=== PATIENT | female | born 1950 | race Caucasian/White ===

== ENCOUNTER 2017-10-31 05:33 | Day surgery (SDC) | payer MEDICARE, OTHER, SELFPAY ==
--- NOTE | 2017-10-31 06:06 | HP.PCM_ITS ---
Problem List (1) Diverticulitis Status: Acute History of Present Illness Date of Admission: 10/31/17 The patient is a 67 year old F who is being referred for surgical evaluation subsequent to repetitive episode of abdominal pain with suspected diverticulitis. The patient is referred by her primary care physician Dr Franklin for a colonoscopy and a written copy of the procedure will be returned to . Fortunately the patient's pain has improved. She denies bright red blood per rectum or melena. Previous colonoscopy 2013. She does not recall previous history of colon polyps. There is no apparent family history of colon cancer. She is presenting via our open access program. Currently she feels that her health is stable. Past Medical History Past Medical History (Chronic Problems): Chronic Problems (Last Updated 10/23/17 @ 10:08 by Jessica Dale MD) Lichen sclerosus et atrophicus (Chronic) try liquid clobetasol, if doesn't work recommend mometasone due to cost Rectocele (Chronic) discussed pessary- will see if it is covered History of psoriasis (Chronic) Obesity (Chronic) History of hyperlipidemia (Chronic) Medical History: Medical History (Last Updated 10/23/17 @ 10:08 by Jessica Dale MD) Diverticulitis (Acute) K57.92 History of psoriasis (Chronic) Z87.2 Obesity (Chronic) E66.9 History of hyperlipidemia (Chronic) Z86.39 Abdominal pain R10.9 Diverticulitis K57.[address] franklin manages Allergies ciprofloxacin [From Cipro] Allergy (Verified 10/23/17 09:38) Other ciprofloxacin HCl [From Cipro] Allergy (Verified 10/23/17 09:38) Other lanolin Adverse Reaction (Verified 10/23/17 09:38) Rash morphine Adverse Reaction (Verified 10/23/17 09:38) Vomiting Home Medications: Ambulatory Orders Medication Instructions Recorded Clobetasol Propionate [Temovate 1 applic TOPICAL PRN PRN 02/15/15 Ointment] Doxycycline 20 mg PO BID 02/15/15 Ketoconazole 1 applic TOPICAL PRN PRN 02/15/15 Metronidazole [Metrocream] 45 gm TOPICAL PRN PRN 02/15/15 Multivit-Min/Iron/Folic/Lutein 1 ea PO DAILY 02/15/15 [Centrum Silver Women Tablet] Atorvastatin Calcium [Lipitor] 20 mg PO QHS 01/22/17 Vitamin B Complex 1 ea PO DAILY 01/22/17 triamcinolone acetonide 0.1 % 1 applic TOPICAL QWEEK g 09/12/17 topical cream ixekizumab 80 mg/mL subcutaneous 80 mg SC Q4W 10/23/17 syringe Surgical History: Surgical History (Last Reviewed 10/23/17 @ 09:41 by Sandy Gonzalez) History of bilateral cataract extraction Z98.41, Z98.42 History of tonsillectomy Z90.89 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 Denies: Abdominal Pain Genitourinary: Denies: Dysuria Musculoskeletal: Denies: Leg Pain Skin: Reports: Lesions Neurological: Denies: Balance problems Psychiatric: Denies: Anxiety Endocrine: Denies: Change in Body Habitus Hematologic/ Lymphatic: Denies: Adenopathy VTE Information - Inpt Only VTE Present on Admission: No - Physical Exam General: Alert, Oriented x3, Cooperative, No apparent distress HEENT: Atraumatic Oral: Moist Mucosa Neck: Supple Lungs: Clear to auscultation Cardiovascular: Regular rate, Regular Rhythm Abdomen: Bowel Sounds Present, Soft, Non Tender, Non-Distended Extremities: No clubbing Musculoskeletal: No Tenderness to Palpation of Joints or Extremities Lymphatic: No Cervical, Supraclavicular, or Inguinal Adenopathy Neurological: Cranial nerves II-XII grossly intact Psych/Mental Status: Normal Affect Assessment/Plan All Active Problems (Last Updated 10/23/17 @ 10:08 by Jessica Dale MD) Diverticulitis (Acute) 67-year-old female is being evaluated because of a recent bout of low abdominal pain. She has a past history of diverticulitis. Her symptoms have improved. We will proceed with colonoscopy with possible biopsy or polypectomy is indicated. She is aware of the technique, benefits, risks, alternatives. She elected to proceed as noted. Vinod Whitmore M.D., F.A.C.S.
[2017-10-31 06:09] VITALS: BP 115/63; PULSE 77; RESP 18; TEMP 36.7; O2SAT 98; BMI 33.0
--- NOTE | 2017-10-31 06:48 | PCM.OPRPT ---
Problem List (1) Diverticulitis Status: Acute Report of Operation Date of Procedure: 10/31/17 Pre-Operative Diagnosis: Recurrent bouts of diverticulitis/abdominal pain Post-Operative Diagnosis: Reynoso colonic diverticulosis. grade 2 internal hemorrhoids Surgery/Procedure Performed:: Colonoscopy Description of Surgical Findings:: Timeout and informed consent was obtained. 67-year-old female was taken to the endoscopy suite. She was placed in a left lateral decubitus position. Because of intolerance to morphine Zofran 4 mg given intravenously. Demerol 100 mg and Versed 3.5 mg were given as intravenous sedation. Digital rectal exam performed. Grade 2 to grade 3 internal hemorrhoids noted. No mass lesions. No active bleeding. Flexible colonoscope inserted in the rectum and quite readily advanced through the colon. Transabdominal pressure was required to get the scope to go to the cecum. The cecum ileocecal valve area however was nicely achieved. Bowel prep was good. The scope was carefully withdrawn from the cecum ascending colon transverse colon descending colon and sigmoid colon. Reynoso colonic diverticulosis was identified with extensive diverticular disease of the descending and sigmoid colon. Did not detect any signs of acute inflammation. The scope was retroflexed within the rectum. Anorectal verge inspected and grade 2-3 internal hemorrhoids noted. No active bleeding. Excess fluid and air was aspirated free the procedure was completed with the patient tolerating it well. Impression Pancolonic diverticulosis Grade 2-3 internal hemorrhoids The patient's previous colonoscopy was approximately 2013. Next screening colonoscopy recommended in 10 years. The patient will be offered an office appointment if she has further recurrent bouts of diverticulitis in the future does consider other treatment options. Cc: Dr. Pryor Medications were given at 0634. Scope was inserted 0635. The cecum was reached at 0640.3. The procedure was completed at 0646.58 Vinod Whitmore M.D., F.A.C.S. Type of Anesthesia:: IV Sedation
[2017-10-31 06:51] VITALS: BP 115/63; BP 116/81; PULSE 108; RESP 18; TEMP 36.5; O2SAT 98
[2017-10-31 06:55] VITALS: BP 115/63; BP 127/77; PULSE 102; RESP 18; O2SAT 98
[2017-10-31 07:00] VITALS: BP 115/63; BP 121/72; PULSE 89; RESP 18; O2SAT 98
[2017-10-31 07:05] VITALS: BP 115/63; BP 125/73; PULSE 87; RESP 18; TEMP 36.2; O2SAT 96
[2017-10-31 07:17] VITALS: BP 115/63
== END 2017-10-31 07:40 | disposition home or self-care (01) ==
LOC: EN 05:34 → AC 05:35
PROVIDERS: Family Provider Internal Medicine; PCP Internal Medicine; Visit Provider Surgery
PROC: 0DJD8ZZ Inspection of Lower Intestinal Tract, Via Natural or Artificial Opening Endoscopic (ICD-10-PCS; CPT 45378; principal; 2017-10-31 06:25)
DX: K57.30 Diverticulosis of large intestine without perforation or abscess without bleeding (principal); K64.8 Other hemorrhoids; L90.0 Lichen sclerosus et atrophicus; E78.5 Hyperlipidemia, unspecified; E66.9 Obesity, unspecified; M81.0 Age-related osteoporosis without current pathological fracture; Z79.899 Other long term (current) drug therapy
CPT/HCPCS: G0121; 99152; 99153; J7120; J2405

== ENCOUNTER → 2018-06-08 08:25 | Outpatient (CLI) | payer MEDICARE, OTHER, SELFPAY ==
--- NOTE | 2018-06-08 08:31 | BI_ITS ---
MAMMOGRAPHY - BILATERAL SCREENING REASON FOR EXAM: Female, 68 years old. Routine annual screening examination. PERTINENT HISTORY: Non-contributory. Prior left excisional breast biopsy and right stereotactic breast biopsy. TECHNIQUE: Digital bilateral breast reggie (3D mammographic acquisition) in the CC and MLO projections. 2-D mediolateral oblique (MLO) and craniocaudad (CC) views of both breasts were obtained. CAD: Full Field Digital Mammography with Computer Added Detection was performed. COMPARISON: Comparison is made with prior abdomen examination dated November 17, 2016 and November 11, 2015. FINDINGS: Breast Composition: The breasts are almost entirely fatty. There are no dominant masses or suspicious calcifications. No other significant abnormalities are identified. There has been no significant change since the prior study. BI/SCREENING MAMM (CAD), BILAT IMPRESSION: Stable bilateral screening mammogram. Yearly follow-up mammogram recommended. (A) ASSESSMENT CATEGORY: BIRADS Category 1: Negative. A letter regarding these results will be sent to the patient by the facility within 30 days. Approximately 10% of breast cancers are not detected by mammography. A normal mammogram should not delay biopsy of a clinically suspicious abnormality. [id number] Electronically Signed: True Ribeiro MD at 14:55 EST , Service support ,
== END ==
PROVIDERS: Family Provider Internal Medicine; PCP Internal Medicine; Referring Provider Obstetrics & Gynecology; Visit Provider Obstetrics & Gynecology
DX: Z12.31 Encounter for screening mammogram for malignant neoplasm of breast (principal)
CPT/HCPCS: 77063; 77067

== ENCOUNTER 2019-01-30 14:14 | Emergency (ER) | payer MEDICARE, OTHER, SELFPAY ==
[2018-06-13 09:29] VITALS: BMI 33.5
[2019-01-30 14:15] VITALS: BP 162/70; PULSE 78; RESP 18; TEMP 36.4; O2SAT 99; BMI 34.1
--- NOTE | 2019-01-30 14:35 | CT_ITS ---
STUDY: CT ABDOMEN AND PELVIS WITH CONTRAST REASON FOR EXAM: Female, 68 years old. Left lower quadrant pain for one day. History of diverticulitis. RADIATION DOSAGE (If Supplied By Facility): CTDIvol = ( 15.35 ) mGy, DLP = ( 1343.46 ) mGycm TECHNIQUE: Transaxial images were obtained from the dome of the diaphragm to the symphysis pubis with oral contrast. IV/Oral Isovue 300 100 was administered. Sagittal and coronal images were reconstructed. Individualized dose optimization techniques were used for this CT. COMPARISON: February 05, 2015. FINDINGS: The visualized lung bases are unremarkable. The visualized portions of the heart are within normal limits. Normal liver. Small densities in the gallbladder fundus thought to be small noncalcified stones. There is no wall thickening or inflammatory change. There is no biliary ductal dilatation. Normal spleen. Fatty replacement of the pancreas without mass. Normal bilateral adrenal glands. Normal right kidney. Normal left kidney. Normal visualized ureters. Type I hiatal hernia. The stomach is otherwise unremarkable. Normal small intestine. There is descending and sigmoid diverticulosis. There is a question of mild diverticulitis at the junction of the distal and sigmoid colon without perforation or abscess. The appendix is visualized and appears normal. There is diffuse atherosclerotic calcification of the abdominal aorta, without a demonstrated aneurysm. Normal inferior vena cava. Normal retroperitoneum. Normal urinary bladder. Normal uterus and ovaries. There is no pelvic lymphadenopathy. No free air or free fluid is seen within the peritoneal cavity. Normal abdominal wall. Very mild degenerative changes of the thoracolumbar spine. CT/Abdomen/Pelvis WITH Contrast IMPRESSION: 1. Uncomplicated sigmoid diverticulitis. 2. Resolution of left hydronephrosis and UVJ calculus seen on the prior study. There is no evidence of renal ureteral or urinary bladder abnormality on the current exam. 3. Question small gallstones without acute cholecystitis. Electronically Signed: Kannan Garg DO at 16:38 EDT Tel [phone], Service support ,
--- NOTE | 2019-01-30 14:36 | ED.DCSUM_ITS ---
History of Present Illness Chief Complaint: Abd Pain Informant: Patient Onset: Yesterday Context: Gradual Onset Current Severity: Moderate Maximum Severity: Moderate Narrative: She presents with lower abdominal pain that started last evening. She states she has felt constipated for the past couple of days. She ate a salad last evening and felt very bloated. She had 2 bowel movements this morning he continued to have worsening pain, worse in the left lower quadrant. She is a history of diverticulitis. She has had no fever or chills. Past Medical History - Allergies and Home Meds Allergies/Adverse Reactions: Allergies ciprofloxacin [From Cipro] Allergy (Verified 01/30/19 14:18) Other ciprofloxacin HCl [From Cipro] Allergy (Verified 01/30/19 14:18) Other lanolin Adverse Reaction (Verified 01/30/19 14:18) Rash morphine Adverse Reaction (Verified 01/30/19 14:18) Vomiting Primary Care Physician: Hilary Pryor MD [Primary Care Provider] - Prior records reviewed: Yes Past Medical History: - - Reviewed Surgical History: noncontributory Lives: Spouse/ Significant Other Smoking Status: Never smoker - Family History Maternal Family History: Family History (Last Reviewed 06/13/18 @ 09:38 by Sandy Gonzalez) Brother Kidney disease Mother Thyroid disorder Adult idiopathic generalized osteoporosis Skin cancer Family History: Reports: No pertinent history Review of Systems General: Denies: Chills, Fever Eyes: Denies: Visual changes - bilaterally ENT: Denies: Bilateral ear pain Cardiovascular: Denies: Chest pain Respiratory: Denies: Dyspnea Gastrointestinal: Reports: Abdominal pain, Constipation. Denies: Nausea, Vomiting, Diarrhea Genitourinary: Denies: Dysuria Musculoskeletal: Denies: Extremity Pain Skin: Denies: Rash Neurological: Denies: Headache Hematologic: Denies: Easy bruising, Easy bleeding Allergy: Denies: Uticaria Physical Exam Vital Signs/Narrative: Vital Signs Temp Pulse Resp BP Pulse Ox 01/30/19 14:15 97.6 F L 78 18 162/70 H 99 Inital Vital Signs reviewed: Yes General: Well nourished, Well developed Head: Normocephalic ENT: Moist mucous membranes Cardiovascular: Regular rate, Regular rhythm Respiratory: No distress, CTA bilaterally Abdomen: Soft, Normal bowel sounds, Tender - Left lower quadrant tenderness to palpation.. Negative for: Guarding, Rebound tenderness Back: Nontender Skin: Normal color Neurological: Alert, Oriented x3 Psychological: Normal affect Diagnostic/Tx/Re-eval Impressions Abdomen/Pelvis CT 01/30/19 14:35 IMPRESSION: 1. Uncomplicated sigmoid diverticulitis. 2. Resolution of left hydronephrosis and UVJ calculus seen on the prior study. There is no evidence of renal ureteral or urinary bladder abnormality on the current exam. 3. Question small gallstones without acute cholecystitis. Electronically Signed: Kannan Garg DO at 16:38 EDT Tel [phone], Service support , 01/30/19 14:35 Abdomen/Pelvis WITH Contrast [CT] Stat Laboratory Results 01/30/19 01/30/19 15:00 15:00 WBC 11.4 H RBC 5.47 H Hgb 15.5 H Hct 47.0 MCV 85.9 MCH 28.3 MCHC 33.0 RDW Std Deviation 42.5 RDW Coeff of Alex 13.3 Plt Count 229 MPV 9.2 Immature Gran % (Auto) 0.400 Neut % (Auto) 71.9 H Lymph % (Auto) 19.3 [place] % (Auto) 6.6 Eos % (Auto) 1.4 Baso % (Auto) 0.4 Absolute Neuts (auto) 8.2 H Absolute Lymphs (auto) 2.19 Nucleated RBC % 0 Sodium 140 Potassium 4.3 Chloride 108 H Carbon Dioxide 27.0 Anion Gap 5 BUN 15 Creatinine 0.76 Estim Creat Clear Calc 48.45 Est GFR (MDRD) Af Amer 96 Est GFR (MDRD) Non-Af 80 BUN/Creatinine Ratio 19.6 Glucose 94 Calcium 8.9 - Medical Decision Making Patient declined anything for pain while in the emergency room. On repeat evaluation she is resting comfortably. She gets spikes of more severe pain in the left lower quadrant. She requested only ibuprofen. She will also be given first dose of Augmentin here. ED Disposition - Plan for ED Patient: Disposition: Home or Assisted Living Diagnosis: Diverticulitis Instructions: Diverticulitis Prescriptions: Amox/Clavulanate Tablet [Augmentin Tablet] 875 mg PO Q12H #20 tablet Referrals: Hilary Pryor MD [Primary Care Provider] - 1 Week
[2019-01-30] MEDS: 0.9% Normal Saline 1,000 ML 150 ML IV (14:55)
[2019-01-30 15:10] LABS: Absolute Lymphocyte Count 2.19 X10^3/uL (0.83-4.51); Absolute Neutrophil Count 8.2 X10^3/uL (2.0-7.7); Basophil# 0.04 X10^3/uL; Basophil% 0.4 % (0-1); Eosinophil# 0.16 X10^3/uL; Eosinophils% 1.4 % (0-5); Hemoglobin 15.5 g/dL (12.0-15.0); Lymphocyte # 2.19 X10^3/ul (4.0); Lymphocyte % 19.3 % (19-41); Mean Corpuscular Hgb 28.3 pg (27.0-32.0); Mean Corpuscular Volume 85.9 fL (81-99); Mean Platelet Vol. 9.2 fl (6.2-12.0); Monocyte# 0.75 X10^3/uL; Monocyte% 6.6 % (0-10); NRBC Flagged by Analyzer 0 % (0-5); Neutrophil # 8.16 X10^3/uL (2.7-7.7); Neutrophil % 71.9 % (47-70); Platelet Count 229 K/mm3 (150-450); RBC Distribution Width CV 13.3 % (11.6-14.6); RBC Distribution Width SD 42.5 fl (35.1-43.9); Red Blood Count 5.47 M/mm3 (4.2-5.4); White Blood Count 11.4 K/mm3 (4.4-11.0)
[2019-01-30 15:19] LABS: Anion Gap 5 (5-15); BUN 15 mg/dL (7-18); BUN/Creat Ratio 19.6 RATIO (10-20); Calcium,Total 8.9 mg/dL (8.5-10.1); Chloride 108 mmol/L (98-107); Creatinine, Serum 0.76 mg/dL (0.55-1.02); EST Glomerular Filtration Rate 80 mL/min (>60); Est Glom Filt Rate - Afr Amer 96 mL/min (>60); Estimated Creatinine Clearance 48.45 ml/min; Glucose 94 mg/dL (74-106); Potassium 4.3 mmol/L (3.5-5.1); Sodium Level 140 mmol/L (136-145)
[2019-01-30 16:14] VITALS: RESP 16
[2019-01-30] MEDS: Amox/Clavulanate 875 MG Tablet PO (17:00)
[2019-01-30] MEDS: Ibuprofen 600 MG Tablet PO (17:00)
[2019-01-30 17:07] VITALS: BP 134/60; PULSE 75; RESP 16; O2SAT 97
--- NOTE | 2019-01-30 17:07 | ED.RN ---
REVIEWED D/C INSTRUCTIONS, FOLLOW UP CARE, PRESCRIPTION, AND S/S THAT WOULD WARRANT A RETURN TO THE ED WITH PT. PT VERBALIZED AN UNDERSTANDING AND DENIES FURTHER QUESTIONS FOR THIS RN. PT SKIN P/W/D, RESP EVEN AND UNLABORED, PT A&O X 3, NO DISTRESS NOTED. PT AMBULATED OUT OF ED, GAIT STEADY.
== END 2019-01-30 17:10 | disposition home or self-care (01) ==
PROVIDERS: Emergency Provider Emergency Medicine; Family Provider Internal Medicine; PCP Internal Medicine
DX: K57.32 Diverticulitis of large intestine without perforation or abscess without bleeding (principal)
CPT/HCPCS: 74177; 80048; 85025; 96360; 96361; 99284; J7030; Q9967; A4216

== ENCOUNTER → 2019-06-25 | Outpatient (CLI) | payer MEDICARE, OTHER, SELFPAY ==
--- NOTE | 2019-06-25 09:40 | BI_ITS ---
MAMMOGRAPHY - BILATERAL SCREENING REASON FOR EXAM: Female, 69 years old. Routine annual screening examination. PERTINENT HISTORY: Non-contributory. Remote right stereotactic breast biopsy. TECHNIQUE: Digital bilateral breast evan (3D mammographic acquisition) in the CC and MLO projections. 2-D mediolateral oblique (MLO) and craniocaudad (CC) views of both breasts were obtained. CAD: Full Field Digital Mammography with Computer Added Detection was performed. COMPARISON: Comparison is made with prior examination dated June 08, 2018 and November 11, 2015. FINDINGS: Breast Composition: The breasts are almost entirely fatty. There are no dominant masses or suspicious calcifications. A tissue clip marker is seen in the upper outer aspect of the right breast. No other significant abnormalities are identified. There has been no significant change since the prior study. BI/SCREEN MAMM (CAD) W/EVAN BILAT IMPRESSION: Stable bilateral screening mammogram. Yearly follow-up mammogram recommended. (A) ASSESSMENT CATEGORY: BIRADS Category 2: Benign. A letter regarding these results will be sent to the patient by the facility within 30 days. Approximately 10% of breast cancers are not detected by mammography. A normal mammogram should not delay biopsy of a clinically suspicious abnormality. [id number] Electronically Signed: True Ribeiro, at 10:41 EST , Service support ,
== END | disposition home or self-care (01) ==
LOC: OPBI 09:40
PROVIDERS: Family Provider Internal Medicine; PCP Internal Medicine; Referring Provider Obstetrics & Gynecology; Visit Provider Obstetrics & Gynecology
DX: Z12.31 Encounter for screening mammogram for malignant neoplasm of breast (principal)
CPT/HCPCS: 77063; 77067

== ENCOUNTER 2019-11-30 21:55 | Emergency (ER) | payer MEDICARE, OTHER, SELFPAY ==
[2019-07-04 08:43] VITALS: BMI 34.1
[2019-11-30 21:56] VITALS: BP 161/84; PULSE 77; RESP 20; TEMP 36.8; O2SAT 98; BMI 34.2
--- NOTE | 2019-11-30 22:14 | EKG12_ITS ---
Test Reason : PALPATATIONS Blood Pressure : / mmHG Vent. Rate : 069 BPM Atrial Rate : 069 BPM P-R Int : 148 ms QRS Dur : 080 ms QT Int : 390 ms P-R-T Axes : 048 045 033 degrees QTc Int : 417 ms Normal sinus rhythm Low voltage QRS Borderline ECG Confirmed by BENIGNO GABRIEL, MARI ([id number]), associate entertainment editor JESSIE RILEY ([id number]) on 12/02/2019 1:15:27 PM Referred By: NGUYEN Confirmed By:MARI PELAEZ MD
--- NOTE | 2019-11-30 22:14 | RAD_ITS ---
STUDY: X-RAY CHEST REASON FOR EXAM: Female, 69 years old. INTERMITTENT PALPITATIONS X2 WEEKS, WORSENING FOR 2 DAYS TECHNIQUE: Single frontal view of the chest. COMPARISON: None. FINDINGS: The lungs are clear and expanded. There is no demonstrated pleural abnormality. Normal size heart. Normal mediastinum and mika. Normal visualized pulmonary arteries. Normal visualized aortic arch and descending thoracic aorta. Normal visualized thoracic spine. Normal visualized ribs, clavicles, and shoulders. There is no demonstrated abnormality of the visualized soft tissue structures of the upper abdomen. RAD/Chest 1 View (Portable) IMPRESSION: Normal x-ray examination of the chest. Electronically Signed: Nolan Oconnor MD at 22:59 EDT Tel , Service support ,
[2019-11-30] MEDS: Aspirin 81 MG TAB.CHEW 324 MG PO (22:23)
[2019-11-30] MEDS: 0.9% Normal Saline 1,000 ML 150 ML IV (22:24)
[2019-11-30 22:41] LABS: Absolute Lymphocyte Count 3.53 X10^3/uL (0.83-4.51); Absolute Neutrophil Count 5.1 X10^3/uL (2.0-7.7); Basophil# 0.04 X10^3/uL; Basophil% 0.4 % (0-1); Eosinophil# 0.25 X10^3/uL; Eosinophils% 2.6 % (0-5); Hematocrit 43.6 % (37-47); Hemoglobin 14.3 g/dL (12.0-15.0); Lymphocyte # 3.53 X10^3/ul (4.0); Lymphocyte % 36.8 % (19-41); Mean Corp Hgb Conc 32.8 g/dL (32-36); Mean Corpuscular Hgb 28.4 pg (27.0-32.0); Mean Corpuscular Volume 86.7 fL (81-99); Mean Platelet Vol. 9.6 fl (6.2-12.0); Monocyte% 6.3 % (0-10); NRBC Flagged by Analyzer 0 % (0-5); Neutrophil # 5.13 X10^3/uL (2.7-7.7); Neutrophil % 53.5 % (47-70); Platelet Count 245 K/mm3 (150-450); RBC Distribution Width CV 13.6 % (11.6-14.6); RBC Distribution Width SD 42.9 fl (35.1-43.9); Red Blood Count 5.03 M/mm3 (4.2-5.4); White Blood Count 9.6 K/mm3 (4.4-11.0)
--- NOTE | 2019-11-30 23:01 | ED.VISSUMM ---
- ER Visit Summary Date of Service: 11/30/19 Chief Complaint: Palpitations History of Present Illness: The patient is a [address] benson to. She reports that she has palpitations that began 2 days ago. States that it feels as though her heart misses a beat. States that this is worse when she rests. It resolves with doing things. Patient reports that she has a chest tightness that began tonight at approximately 6:30 PM after eating dinner. It was 6 out of 10 at worst. She is pain-free currently. She states it is worsened by eating. She reports it is not worsened by exertion. She took Tums and is not sure if this helped or if it just resolved on its own. She does report she was mildly short of breath during this. Physical Examination: Vitals: Stable. Afebrile. General: Well-nourished and well-developed. Head: Normocephalic atraumatic. Neck: Supple, no lymphadenopathy. No JVD. Nontender. Cardiovascular: Regular rate and rhythm. No murmurs. Respiratory: No respiratory distress. Clear to auscultation bilaterally. Abdominal: Soft, nontender, nondistended, normal bowel sounds. No guarding, rebound, or peritoneal signs. Back: Nontender. Extremities: Nontender, no edema. Skin: Normal color, no rash. Neurologic: Alert and oriented ?3. Cranial nerves II through XII are intact. Normal strength and sensation. Psych: Normal affect. Test Results: EKG is sinus at [address] changes. Is unchanged from September 2009. Repeat EKG is unchanged. Troponin is negative. Repeat troponin is negative. Chem-7 shows a chloride of 114 and glucose 138. CBC is normal. TSH is 3.18. Chest x-ray is normal. Emergency Department Course and Treatment: Patient is having PVCs. These are when she senses the palpitations and she states that this is the discomfort she is having as well. Treatment Plan: Had a prolonged discussion the patient that at this time there are no medications that are indicated for the PVCs. Her heart rate is in the 60s to 70s. I do not think that putting her on a beta-beau at this point is in her best interest. She will be discharged instructions to follow-up with her doctor in 2 days for another exam. Return to the emergency department for any worsening symptoms. Disposition: To home in improved and stable condition. Impression: 1. Atypical chest pain. 2. MITRA score of 2. 3. PVCs. This note was generated with [employer] dictation software. It may contain incorrect words, spelling, and punctuation that were not noted in review of the chart prior to signing ED Disposition - Plan for ED Patient: Instructions: Premature Ventricular Contractions Referrals: Hilary Pryor MD [Primary Care Provider] - 2 Days
[2019-11-30 23:14] VITALS: BP 135/69; PULSE 73; RESP 13; O2SAT 98
[2019-11-30 23:41] LABS: Anion Gap 2 (5-15); BUN 11 mg/dL (7-18); BUN/Creat Ratio 13.9 RATIO (10-20); Calcium,Total 8.8 mg/dL (8.5-10.1); Chloride 114 mmol/L (98-107); Creatinine, Serum 0.79 mg/dL (0.55-1.02); EST Glomerular Filtration Rate 77 mL/min (>60); Est Glom Filt Rate - Afr Amer 93 mL/min (>60); Estimated Creatinine Clearance 47.78 ml/min; Glucose 138 mg/dL (74-106); Potassium 3.6 mmol/L (3.5-5.1); Sodium Level 144 mmol/L (136-145); Thyroid Stim Hormone (TSH) 3.18 uIU/mL (0.358-3.74)
--- NOTE | 2019-12-01 00:10 | EKG12_ITS ---
Test Reason : REPEAT Blood Pressure : / mmHG Vent. Rate : 066 BPM Atrial Rate : 066 BPM P-R Int : 148 ms QRS Dur : 078 ms QT Int : 412 ms P-R-T Axes : 046 038 038 degrees QTc Int : 431 ms Sinus rhythm with frequent Premature ventricular complexes Low voltage QRS Borderline ECG Confirmed by BENIGNO GABRIEL, MARI ([id number]), editor news JESSIE RILEY ([id number]) on 12/02/2019 1:15:46 PM Referred By: NGUYEN Confirmed By:MARI PELAEZ MD
[2019-12-01 01:46] VITALS: BP 138/66; PULSE 62; RESP 14; O2SAT 98
[2019-12-01 02:52] VITALS: BP 143/68; PULSE 69; RESP 14; O2SAT 98
== END 2019-12-01 02:53 | disposition home or self-care (01) ==
PROVIDERS: Emergency Provider Emergency Medicine; PCP Internal Medicine
DX: I49.3 Ventricular premature depolarization (principal); R07.89 Other chest pain
CPT/HCPCS: 71045; 80048; 84443; 84484; 85025; 93005; 96360; 96361; 99285; J7030; A4216

== ENCOUNTER → 2019-12-23 | Outpatient (CLI) | payer MEDICARE, OTHER, SELFPAY ==
[2019-12-23 14:13] VITALS: BMI 34.2
[2019-12-23 17:13] LABS: Free T3 2.9 pg/mL (2.18-3.98); T4 Total, Thyroxin 10.8 ug/dL (4.8-13.9)
== END | disposition home or self-care (01) ==
LOC: LAB 15:14
PROVIDERS: PCP Internal Medicine; Referring Provider Specialist; Visit Provider Specialist
DX: I49.3 Ventricular premature depolarization (principal); R00.2 Palpitations
CPT/HCPCS: 36415; 84436; 84443; 84481

== ENCOUNTER → 2020-01-07 | Outpatient (CLI) | payer MEDICARE, OTHER, SELFPAY ==
[2019-12-23 14:13] VITALS: BMI 34.2
--- NOTE | 2020-01-07 10:46 | ECHOCS_ITS ---
Reason For Study: PVCS Procedure This was a 2D Doppler, Color Flow transthoracic echocardiogram. Contrast injection was performed. The study was technically difficult. Exam performed in department. Left Ventricle Normal LV size. The estimated ejection fraction is 60 %. No evidence for diastolic dysfunction. No regional wall motion abnormalities noted. Right Ventricle Normal RV size. Normal systolic function. Atria Normal left atrium. Normal right atrium. No doppler evidence for ASD. Mitral Valve There is no mitral valve stenosis. No mitral valve insufficiency. Tricuspid Valve There is no tricuspid stenosis. Mild tricuspid valve insufficiency. Pulmonary artery systolic pressure is 25-30 mmHg. Aortic Valve Trisinus/trileaflet aortic valve. There is no aortic stenosis. No aortic valve insufficiency. Pulmonic Valve There is no pulmonic valvular stenosis. No pulmonic valve insufficiency. Great Vessels Normal aortic root. Pericardium/Pleural No pericardial effusion. Medication 22 gauge I.V. with prn adaptor inserted into right arm. Diluted definity 5.0ml given slow IV push to enhance endocardial definition. MMode/2D Measurements & Calculations LVIDd: 4.1 cm IVSd: 1.0 cm Ao root diam: 3.0 cm LVIDs: 2.7 cm LVPWd: 0.92 cm RVDd: 4.1 cm FS: 33.5 % LAV(MOD-bp): 44.5 ml LVAd ap4: 22.5 cm2 SV(MOD-sp4): 34.7 ml LAV(MOD-bp) Indexed: 22.4 ml/m2 EDV(MOD-sp4): 56.8 ml LAV(MOD-sp2): 34.7 ml EDV(sp4-el): 60.1 ml LAV(MOD-sp4): 54.9 ml LVAs ap4: 12.2 cm2 ESV(MOD-sp4): 22.1 ml ESV(sp4-el): 23.2 ml EF(MOD-sp4): 61.1 % EF(sp4-el): 61.5 % SV(sp4-el): 37.0 ml LA A4 area: 19.6 cm2 LA dimension(2D): 3.8 cm RA A4 area: 14.7 cm2 Time Measurements MV dec time: 0.32 sec Doppler Measurements & Calculations MV E max nj: 67.0 cm/sec Lat Peak E' Nj: 13.6 cm/sec Med Peak E' Nj: 9.4 cm/sec MV A max nj: 50.2 cm/sec E/E' lat: 4.9 E/E' med: 7.1 MV E/A: 1.3 Ao V2 max: 112.7 cm/sec LV V1 max: 91.5 cm/sec TR max nj: 236.7 cm/sec Ao max P.1 mmHg LV V1 max P.3 mmHg TR max P.4 mmHg Interpretation Summary The estimated ejection fraction is 60 %. No evidence for diastolic dysfunction. The study was technically difficult. Contrast injection was performed. Ordering Physician: Tyler Self Referring Physician: JEFFERY MARTIN Performed By: Hansa Hilario, MITZI, RVT
== END | disposition home or self-care (01) ==
LOC: CVS 10:33
PROVIDERS: PCP Internal Medicine; Referring Provider Specialist; Visit Provider Specialist
DX: I47.2 Ventricular tachycardia (principal); I49.3 Ventricular premature depolarization; R00.2 Palpitations
CPT/HCPCS: 36415; 83735; 93306; Q9957; A4216; C8929

== ENCOUNTER → 2020-03-12 06:25 | Outpatient (CLI) | payer MEDICARE, OTHER, SELFPAY ==
[2020-02-26 13:33] VITALS: BMI 34.9
--- NOTE | 2020-03-13 11:04 | STRESSREP_ITS ---
Stress Test Report Date: 03/12/2020 Procedure: Exercise tolerance test/imaging study Indications: Palpitations, nonsustained V. tach Consent: Per the patient Procedure: The patient exercised on a Denis protocol for 3 minutes and 15 seconds achieving a peak heart rate of 148 bpm (98% predicted maximal heart rate) with a peak blood pressure 144/80 mmHg and a peak MET capacity of 4.9 METs. The baseline ECG demonstrated normal sinus rhythm, occasional PVCs. The peak exercise ECG demonstrated sinus tachycardia with no significant ischemic ST-T changes. EKG during recovery revealed no significant ischemic changes [There were no significant cardiac dysrhythmias pretest, during exercise, or recovery]. The functional capacity was considered decreased for age. There was [no complaint of chest discomfort during exercise or recovery]. The examination was discontinued secondary to dyspnea, leg discomfort. Impression: 1. Technically adequate (percent predicted maximal heart rate greater than 85%) exercise tolerance test 2. Stress test is negative for exercise-induced EKG changes of ischemia 3. The test test is negative for exercise-induced chest pain 4. Functional capacity is decreased for age 5. Nuclear images pending Myocardial perfusion imaging study: Technique: The patient was injected with 14.2 mCi of technetium 99m Cardiolite and subsequently rest SPECT Cardiolite nuclear imaging was obtained in the horizontal long, vertical long, and short axis views. The patient exercised on a Denis protocol. Please see above for details. The patient was injected with 43.8 mCi of technetium 99m Cardiolite and subsequently stress SPECT Cardiolite nuclear imaging was obtained in the horizontal long, vertical long, and short axis views. A gated Cardiolite study at peak stress was obtained. Interpretation: Rest and stress SPECT Cardiolite nuclear imaging status post realignment, normalization, and attenuation correction, demonstrates decreased radioisotope uptake in the anterior wall prior to attenuation correction that is worse on the rest images. On the stress images after attenuation correction there is normal myocardial radioisotope uptake. There is no evidence of significant ischemia or infarction. The gated Cardiolite study demonstrates no significant regional wall motion abnormalities. The reported LVEF is greater than 70%. Impression: 1. There is no evidence of significant ischemia or infarction. 2. The gated Cardiolite study reports an LVEF of greater than 70%. This note was generated with [employer] software. It may contain incorrect words, spelling, and punctuation that were not noted in checking the note before signing.
== END ==
PROVIDERS: PCP Internal Medicine; Referring Provider Specialist; Visit Provider Specialist
DX: I47.2 Ventricular tachycardia (principal); R00.2 Palpitations; I49.3 Ventricular premature depolarization; R06.09 Other forms of dyspnea
CPT/HCPCS: 78452; 93017; A9500; A4216

== ENCOUNTER → 2020-07-06 | Outpatient (CLI) | payer MEDICARE, OTHER, SELFPAY ==
[2019-07-04 08:43] VITALS: BMI 34.1
[2020-06-11 09:06] VITALS: BMI 31.6
--- NOTE | 2020-07-06 10:37 | BI_ITS ---
MAMMOGRAPHY - BILATERAL SCREENING REASON FOR EXAM: Female, 70 years old. Routine annual screening examination. PERTINENT HISTORY: Non-contributory. Remote right stereotactic breast biopsy and right excisional breast biopsy. TECHNIQUE: Digital bilateral breast evan (3D mammographic acquisition) in the CC and MLO projections. 2-D mediolateral oblique (MLO) and craniocaudad (CC) views of both breasts were obtained. CAD: Full Field Digital Mammography with Computer Added Detection was performed. COMPARISON: Comparison is made with prior study dated 06/25/2019 and 06/08/2018. FINDINGS: Breast Composition: There are scattered areas of fibroglandular density. There are no dominant masses or suspicious calcifications. Indication: Markers once again seen in the upper outer aspect of the right breast. No other significant abnormalities are identified. There has been no significant change since the prior study. BI/SCRN MAMM (CAD)W/EVAN BILAT IMPRESSION: Stable bilateral screening mammogram. Yearly follow-up mammogram recommended. (A) ASSESSMENT CATEGORY: BIRADS Category 2: Benign. A letter regarding these results will be sent to the patient by the facility within 30 days. Approximately 10% of breast cancers are not detected by mammography. A normal mammogram should not delay biopsy of a clinically suspicious abnormality. [id number] Electronically Signed: True Ribeiro MD at 11:39 EST , Service support ,
== END | disposition home or self-care (01) ==
LOC: OPBI 10:36
PROVIDERS: PCP Internal Medicine; Referring Provider Obstetrics & Gynecology; Visit Provider Obstetrics & Gynecology
DX: Z12.31 Encounter for screening mammogram for malignant neoplasm of breast (principal)
CPT/HCPCS: 77063; 77067

== ENCOUNTER → 2020-12-24 09:07 | Outpatient (CLI) | payer MEDICARE, OTHER, SELFPAY ==
[2020-12-24 11:23] LABS: Absolute Lymphocyte Count 1.98 X10^3/uL (0.83-4.51); Absolute Neutrophil Count 4.8 X10^3/uL (2.0-7.7); Basophil# 0.05 X10^3/uL; Basophil% 0.7 % (0-1); Eosinophil# 0.17 X10^3/uL; Eosinophils% 2.2 % (0-5); Hematocrit 46.1 % (37-47); Hemoglobin 14.7 g/dL (12.0-15.0); Lymphocyte # 1.98 X10^3/ul (0.83-4.51); Lymphocyte % 25.9 % (19-41); Mean Corp Hgb Conc 31.9 g/dL (32-36); Mean Corpuscular Hgb 28.3 pg (27.0-32.0); Mean Corpuscular Volume 88.7 fL (81-99); Mean Platelet Vol. 9.4 fl (6.2-12.0); Monocyte% 7.9 % (0-10); NRBC Flagged by Analyzer 0 % (0-5); Neutrophil # 4.79 X10^3/uL (2.7-7.7); Neutrophil % 62.6 % (47-70); Platelet Count 267 K/mm3 (150-450); RBC Distribution Width CV 13.2 % (11.6-14.6); RBC Distribution Width SD 42.5 fl (35.1-43.9); White Blood Count 7.6 K/mm3 (4.4-11.0)
[2020-12-24 11:50] LABS: Vitamin D,25 Hydroxy 45.7 ng/mL
[2020-12-24 12:00] LABS: AST(SGOT) 22 U/L (15-37); Alanine Aminotransfer ALT/SGPT 31 U/L (13-56); Albumin, Serum 3.5 g/dL (3.2-5.0); Alkaline Phosphatase 83 U/L (45-117); Anion Gap 4 (5-15); BUN 10 mg/dL (7-18); BUN/Creat Ratio 13.6 RATIO (10-20); Calcium,Total 8.6 mg/dL (8.5-10.1); Chloride 108 mmol/L (98-107); Cholesterol 175 mg/dL (200); Creatinine, Serum 0.74 mg/dL (0.55-1.02); EST Glomerular Filtration Rate 83 mL/min (>60); Est Glom Filt Rate - Afr Amer 100 mL/min (>60); Free T3 2.9 pg/mL (2.18-3.98); Globulin 3.4 g/dL (2.2-4.2); Glucose 96 mg/dL (74-106); High Density Lipoprotein 53 mg/dL; Potassium 4.1 mmol/L (3.5-5.1); Protein, Total 6.9 g/dL (6.4-8.2); Sodium Level 141 mmol/L (136-145); T4 Free Direct 1.11 ng/dL (0.76-1.46); Thyroid Stim Hormone (TSH) 2.09 uIU/mL (0.358-3.74); Triglycerides 147 mg/dL; Very Low Density Lipoprotein 29 mg/dL (5-40)
== END ==
PROVIDERS: PCP Internal Medicine; Referring Provider Internal Medicine; Visit Provider Internal Medicine
DX: E55.9 Vitamin D deficiency, unspecified (principal); E66.9 Obesity, unspecified; E78.5 Hyperlipidemia, unspecified; M81.0 Age-related osteoporosis without current pathological fracture
CPT/HCPCS: 36415; 80053; 80061; 82306; 84439; 84443; 84481; 85025

== ENCOUNTER → 2021-01-19 10:35 | Outpatient (CLI) | payer MEDICARE, OTHER, SELFPAY ==
--- NOTE | 2021-01-19 10:56 | BD_ITS ---
STUDY: DUAL ENERGY X-RAY ABSORPTIOMETRY / DXA REASON FOR EXAM: Female, 70 years old. oste porosis TECHNIQUE: Bone Mineral Density (BMD) measurements of lumbar spine and bilateral hips were obtained. COMPARISON: None. FINDINGS: Lumbar Spine (L1-L4): g/cm2 (0.965) / T-score (-0.7) / Z-score (1.4) Findings are suggestive of normal bone density with a low fracture risk. Left Femur Total: g/cm2 (0.729) / T-score (-1.7) / Z-score (-0.2) Left Femoral Neck: g/cm2 (0.532) / T-score (-2.9) / Z-score (-1.0) Right Femur Total: g/cm2 (0.820) / T-score (-1.0) / Z-score (0.6) Right Femoral Neck: g/cm2 (0.60) / T-score (-2.2) / Z-score (-0.3) BD/Dexa Bone Density Study IMPRESSION: The patient is considered osteoporotic as outlined below according to World Gene Organization (WHO) criteria with a high fracture risk. Reference Information: The T-score is the number of standard deviations above or below the standard which is normal for young adults at their peak bone mineral density. The World Health Organization (WHO) interprets the T-scores as follows: Above -1 Normal bone density Between -1 and -2.5 Osteopenia Equal to / or below -2.5 Osteoporosis As a practical clinical guideline, osteopenia may be graded as follows: Mild -1 through -1.5 Moderate -1.6 through -2.0 Severe -2.1 through -2.4 The Z-score is the number of standard deviations above or below age-matched controls. A Z-score of less than -1.5 would be considered abnormal. References: 1. NIH Osteoporosis and Related Bone Diseases www osteo.org 2. International Society for Clinical Densitometry www iscd.org 3. National Osteoporosis Foundation www nof.org Electronically Signed: True Ribeiro MD at 11:41 EDT , Service support ,
== END ==
PROVIDERS: PCP Internal Medicine; Referring Provider Internal Medicine; Visit Provider Internal Medicine
DX: M81.0 Age-related osteoporosis without current pathological fracture (principal)
CPT/HCPCS: 77080

== ENCOUNTER 2021-06-18 12:23 | Outpatient (CLI) | payer MEDICARE, OTHER, SELFPAY ==
[2021-06-18 13:00] VITALS: BP 140/72; PULSE 66; RESP 16; TEMP 36.2; O2SAT 100
[2021-06-18] MEDS: 0.9% NaCl IVPB Med Flush (250 mL) 15 ML IV (13:06)
[2021-06-18] MEDS: Zoledronic Acid 5 MG 100 ML 300 MG IV (13:06)
[2021-06-18] MEDS: 0.9% NaCl Peripheral Flush Adult/Peds IV (13:06)
[2021-06-18 13:57] VITALS: BP 139/75; PULSE 72
== END 2021-06-18 23:59 | disposition home or self-care (01) ==
LOC: MEDOUTP 12:24
PROVIDERS: PCP Internal Medicine; Referring Provider Internal Medicine Endocrinology, Diabetes & Metabolism; Visit Provider Internal Medicine Endocrinology, Diabetes & Metabolism
DX: M81.0 Age-related osteoporosis without current pathological fracture (principal)
CPT/HCPCS: 96365; J7050; A4216; J3489

== ENCOUNTER 2021-06-24 11:50 | Outpatient (CLI) | payer MEDICARE, OTHER, SELFPAY ==
[2021-06-24 13:27] LABS: Absolute Lymphocyte Count 2.44 X10^3/uL (0.83-4.51); Basophil# 0.05 X10^3/uL; Basophil% 0.6 % (0-1); Eosinophil# 0.18 X10^3/uL; Eosinophils% 2.2 % (0-5); Hematocrit 44.8 % (37-47); Hemoglobin 14.3 g/dL (12.0-15.0); Lymphocyte # 2.44 X10^3/ul (0.83-4.51); Lymphocyte % 29.4 % (19-41); Mean Corp Hgb Conc 31.9 g/dL (32-36); Mean Corpuscular Hgb 27.3 pg (27.0-32.0); Mean Corpuscular Volume 85.7 fL (81-99); Mean Platelet Vol. 9.6 fl (6.2-12.0); Monocyte# 0.59 X10^3/uL; Monocyte% 7.1 % (0-10); NRBC Flagged by Analyzer 0 % (0-5); Neutrophil # 5.02 X10^3/uL (2.7-7.7); Neutrophil % 60.3 % (47-70); Platelet Count 284 K/mm3 (150-450); RBC Distribution Width CV 13.9 % (11.6-14.6); RBC Distribution Width SD 43.8 fl (35.1-43.9); Red Blood Count 5.23 M/mm3 (4.2-5.4); White Blood Count 8.3 K/mm3 (4.4-11.0)
[2021-06-24 14:09] LABS: Anion Gap 5 (5-15); BUN 10 mg/dL (7-18); BUN/Creat Ratio 12.7 RATIO (10-20); Calcium,Total 9.5 mg/dL (8.5-10.1); Chloride 107 mmol/L (98-107); Creatinine, Serum 0.79 mg/dL (0.55-1.02); EST Glomerular Filtration Rate 76 mL/min (>60); Est Glom Filt Rate - Afr Amer 92 mL/min (>60); Glucose 98 mg/dL (74-106); Magnesium 2.2 mg/dL (1.6-2.6); Sodium Level 141 mmol/L (136-145); T4 Free Direct 1.23 ng/dL (0.76-1.46); Thyroid Stim Hormone (TSH) 2.52 uIU/mL (0.358-3.74)
== END 2021-06-24 23:59 | disposition home or self-care (01) ==
LOC: LAB 11:54
PROVIDERS: PCP Internal Medicine; Visit Provider Nurse Practitioner Gerontology
DX: R00.2 Palpitations (principal)
CPT/HCPCS: 36415; 80048; 83735; 84439; 84443; 85025

== ENCOUNTER 2021-07-08 08:41 | Outpatient (CLI) | payer MEDICARE, OTHER, SELFPAY ==
[2020-10-13 09:27] VITALS: BMI 34.2
--- NOTE | 2021-07-08 08:43 | BI_ITS ---
MAMMOGRAPHY - BILATERAL SCREENING REASON FOR EXAM: Female, 71 years old. Routine annual screening examination. PERTINENT HISTORY: Non-contributory. Remote right excisional breast biopsy. TECHNIQUE: Digital bilateral breast evan (3D mammographic acquisition) in the CC and MLO projections. 2-D mediolateral oblique (MLO) and craniocaudad (CC) views of both breasts were obtained. CAD: Full Field Digital Mammography with Computer Added Detection was performed. COMPARISON: Comparison is made with prior study dated 07/06/2020 and 06/25/2019. FINDINGS: Breast Composition: There are scattered areas of fibroglandular density. There are no dominant masses or suspicious calcifications. No other significant abnormalities are identified. There has been no significant change since the prior study. BI/SCRN MAMM (CAD)W/EVAN BILAT IMPRESSION: Stable bilateral screening mammogram. Yearly follow-up mammogram recommended. (A) ASSESSMENT CATEGORY: BIRADS Category 1: Negative. A letter regarding these results will be sent to the patient by the facility within 30 days. Approximately 10% of breast cancers are not detected by mammography. A normal mammogram should not delay biopsy of a clinically suspicious abnormality. [id number] Electronically Signed: True Ribeiro MD at 9:51 EST ,
== END 2021-07-08 23:59 | disposition home or self-care (01) ==
PROVIDERS: PCP Internal Medicine; Visit Provider Obstetrics & Gynecology
DX: Z12.31 Encounter for screening mammogram for malignant neoplasm of breast (principal); R00.2 Palpitations; I49.3 Ventricular premature depolarization
CPT/HCPCS: 77063; 77067; 93225; 93226

== ENCOUNTER 2022-03-07 14:37 | Emergency (ER) | payer MEDICARE, OTHER, SELFPAY ==
[2022-03-07 14:38] VITALS: BP 141/68; PULSE 67; RESP 18; TEMP 36.6; O2SAT 100; BMI 35.2
--- NOTE | 2022-03-07 15:11 | ED.VIS.GI ---
HPI HPI - GI History of Present Illness Chief Complaint: Abd Pain Informant: patient Abdominal Pain/Flank Pain Onset: Yesterday Context: Gradual Onset Timing: Continuous Quality: Aching Location: LLQ Worsened by: Car ride and - (Standing) Relieved by: - (Sitting straight up) Nausea/Vomiting/Emesis GI Symptom: Negative for Nausea or Vomiting Diarrhea/Melena/Hematochezia GI Symptom: Negative for Diarrhea, Melena or Hematochezia Associated Symptoms Associated Symptoms: Positive for Frequency; Negative for Dysuria or Hematuria Narrative Narrative: Patient presents with left lower quadrant abdominal pain that began last night. Patient states she has been having some urinary frequency and thought she may be developing a bladder infection. Patient states that today her pain began to get worse in the left lower quadrant. Patient states it has been constant throughout the day today. Patient states it is aching. Patient states it is over the left lower quadrant and suprapubic areas. Patient states it became worse whenever she had a bump in the road in the car. Patient states it is better when she sits straight up. Patient denies any nausea or vomiting. Patient denies any diarrhea. Patient denies any melena or hematochezia. Patient states she does have a history of diverticulosis. [facility] Medical History Cataracts, bilateral Cystocele Diaphragmatic hernia Diverticulitis Diverticulosis Frequent headaches GERD (gastroesophageal reflux disease) Hirsutism History of fracture of tibia History of kidney stones History of psoriasis Hx of labyrinthitis Hyperlipidemia Irritable bowel syndrome (IBS) Lichen sclerosus et atrophicus Obesity COREY (obstructive sleep apnea) Osteoporosis Palpitations Psoriasis PVC's (premature ventricular contractions) Rectocele Home Medications vitamin B complex 1 ea PO DAILY 01/22/17 [History Last Taken Unknown] calcium citrate 315 mg calcium-vitamin D3 6.25 mcg (250 unit) tablet 1 ea PO DAILY 01/30/19 [History Last Taken Unknown] cholecalciferol (vitamin D3) 25 mcg (1,000 unit) capsule 1,000 unit PO DAILY 01/30/19 [History Last Taken Unknown] hydrocortisone 2.5 % topical cream 1 applic topical BID PRN 07/04/19 [History Last Taken Unknown] clobetasol 0.05 % scalp solution 1 applic topical ONCE PRN 12/02/20 [History Last Taken Unknown] ivermectin 1 % topical cream 1 applic topical DAILY 06/11/20 [History Last Taken Unknown] zoledronic acid 5 mg/100 mL in mannitol 5 %-water intravenous piggybck 1 ea .Route ONCE #100 mL 05/20/21 [Rx Last Taken Unknown] betamethasone dipropionate 0.05 % topical ointment 1 applic topical DAILY PRN 06/24/21 [History Last Taken Unknown] doxycycline hyclate 20 mg tablet 20 mg PO BID 06/24/21 [History Last Taken Unknown] metoprolol succinate 25 mg tablet,extended release 24 hr 12.5 mg PO QHS #15 tabs 08/05/21 [Rx Last Taken Unknown] atorvastatin 20 mg tablet 20 mg PO QHS #90 tabs 08/30/21 [Rx Last Taken Unknown] amoxicillin 875 mg-potassium clavulanate 125 mg tablet 875 mg PO Q12H #20 TABLETS 03/07/22 [Rx Last Taken Unknown] Allergy/AdvReac Type Severity Reaction Status Date / Time bupropion [From Wellbutrin] Allergy Intermediate Unknown Verified 03/07/22 14:37 codeine Allergy Intermediate Unknown Verified 03/07/22 14:37 [From Tylenol-Codeine] Opioids - Morphine Analogues Allergy Intermediate Unknown Verified 03/07/22 14:37 rosuvastatin Allergy Intermediate Unknown Verified 03/07/22 14:37 ciprofloxacin [From Cipro] Allergy Other Verified 03/07/22 14:37 ciprofloxacin HCl Allergy Other Verified 03/07/22 14:37 [From Cipro] lanolin AdvReac Rash Verified 03/07/22 14:37 morphine AdvReac Vomiting Verified 03/07/22 14:37 Family History Brother CVA (cerebral vascular accident) Cancer bladder Mother Thyroid disorder Adult idiopathic generalized osteoporosis Skin cancer Cancer bladder,lymphoma Alzheimer's disease Myocardial infarction, Onset Age: 62 Father Cancer lung Hypertension Son , Age 45October Myocardial infarction, Onset Age: 45 at 45 Surgical History Disorder of uvula H/O dilation and curettage History of bilateral cataract extraction History of colonoscopy History of right breast biopsy 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 History of tonsillectomy History of tubal ligation Social History Smoking Status: Never smoker alcohol intake: current alcohol intake frequency: a few times a month details: social substance use type: does not use caffeine: Yes what type of physical activity do you participate in: walking seatbelt use: always do you feel safe at home: Yes additional social history: Chris- Gilberto are Retired ROS ROS ED Constitutional Constitutional ED: Denies chills or fever(s) Eyes Eyes: Denies blurry vision or change in vision ENT ENT ED: Denies rhinorrhea or sore throat Cardiovascular Cardiovascular: Denies chest pain or palpitations Respiratory/Chest Respiratory/Chest: Denies cough or dyspnea Gastrointestinal Gastrointestinal: Reports abdominal pain; Denies nausea or vomiting Genitourinary Genitourinary ED: Reports urinary frequency; Denies dysuria or hematuria Musculoskeletal Musculoskeletal: Reports back pain and neck pain Integumentary Denies abscess or rash Neurologic Neurologic: Denies headache(s) or weakness Allergic/Immunologic Allergic/Immunologic ED: Denies mouth swelling or urticaria EXAM Physical Exam Const Vital Signs: 03/07/22 14:38 Temperature 97.8 F Temperature Source Temporal Pulse Rate 67 Respiratory Rate 18 Blood Pressure 141/68 H Blood Pressure Mean 92 Pulse Ox 100 Oxygen Delivery Method Room Air Positive well nourished, well developed and obese General Appearance ED: well developed and NAD Nutritional Appearance: obese HEENT Reports moist mucous membranes Neck supple and no JVD Resp normal respiratory effort and clear to auscultation bilaterally Cardio regular rate, regular rhythm and no murmurs GI normal to inspection, nondistended, normoactive bowel sounds Palpation: soft and tender LLQ and suprapubic; Negative for guarding or rebound tenderness present Extremity normal to inspection General Extremety ED: Negative for edema or tenderness General Extremity: Negative for edema Neuro oriented x3, CN's II-XII intact bilaterally and no sensory deficits noted Sensorium / Orientation: alert Motor Exam: strength 5/5 throughout Psych mental status grossly normal Skin no rashes or lesions noted MDM MDM MDM Narrative Medical decision making narrative: Patient was given IV fluids. Patient declined Zofran or fentanyl. CBC shows a mild leukocytosis of 12.6. Comprehensive metabolic profile was essentially within normal limits. Lipase was normal. Urinalysis does not show any evidence of urinary tract infection or hematuria. CT scan of the abdomen pelvis was obtained. There is evidence of sigmoid diverticulitis. There is no perforation or abscess. This was interpreted by the radiologist and reviewed by myself. Patient was given prescriptions for Augmentin. Patient was instructed to follow-up with her primary care physician in 5 to 7 days. Patient understood and was agreeable with the plan. All questions were answered. Lab Data Labs: Laboratory Results - last 24 hr 03/07/22 03/07/22 03/07/22 15:28 15:28 16:37 WBC 12.6 H RBC 5.35 Hgb 15.5 H Hct 46.0 MCV 86.0 MCH 29.0 MCHC 33.7 RDW Std Deviation 43.9 RDW Coeff of Alex 13.9 Plt Count 281 MPV 9.6 Immature Gran % (Auto) 0.300 Neut % (Auto) 71.3 H Lymph % (Auto) 18.9 L [place] % (Auto) 7.3 Eos % (Auto) 1.8 Baso % (Auto) 0.4 Absolute Neuts (auto) 9.0 H Absolute Lymphs (auto) 2.38 Nucleated RBC % 0 Sodium 141 Potassium 4.1 Chloride 108 H Carbon Dioxide 28.0 Anion Gap 5 BUN 9 Creatinine 0.90 Estim Creat Clear Calc 50.84 Est GFR (MDRD) Af Amer 79 Est GFR (MDRD) Non-Af 66 BUN/Creatinine Ratio 10.0 Glucose 107 H Calcium 9.9 Total Bilirubin 1.10 H AST 18 ALT 28 Alkaline Phosphatase 78 Total Protein 7.0 Albumin 3.7 Globulin 3.3 Albumin/Globulin Ratio 1.1 Lipase 84 Urine Color Yellow Urine Clarity Clear Urine pH 6.5 Ur Specific [place] 1.010 Urine Protein Negative Urine Glucose (UA) Normal Urine Ketones 5 H Urine Occult Blood Negative Urine Nitrite Negative Urine Bilirubin Negative Urine Urobilinogen Normal Ur Leukocyte Esterase Negative Urine RBC 0 SEEN Urine WBC 0 SEEN Ur Squamous Epith Cells 0 SEEN Urine Bacteria 0 SEEN Urine Mucus 0 SEEN Radiography Diagnostic Testing: Clinical Impression(s) from Imaging Studies Abdomen/Pelvis CT 03/07/22 15:15 IMPRESSION: 1. Sigmoid diverticulitis without perforation or abscess. 2. No other major interval change. Electronically Signed: Kannan Garg DO at 17:25 EDT Reading Location ID and State: [facility] / [place] Tel [phone], Service support , Discharge Plan Triage Chief Complaint: Abd Pain ED Provider: Brooks Meza Dx/Rx/DC Orders Clinical Impression: Diverticulitis Instructions: ED Diverticulitis Prescriptions: New amoxicillin-pot clavulanate [amoxicillin-pot clavulanate] 875-125 mg tablet 875 mg PO Q12H Qty: 20 0RF No Action hydrocortisone 2.5 % cream 1 applic TOPICAL BID PRN ivermectin 1 % cream 1 applic TOPICAL DAILY clobetasol 0.05 % solution 1 applic TOPICAL ONCE PRN betamethasone dipropionate 0.05 % ointment 1 applic topical DAILY PRN doxycycline hyclate 20 mg tablet 20 mg PO BID zoledronic mdrf-ixobffjc-earkw 5 mg/100 mL piggyback 1 ea .Route ONCE Qty: 100 0RF Rx Instructions: infuse over 20 minutes. metoprolol succinate 25 mg tablet extended release 24 hr 12.5 mg PO QHS Qty: 15 3RF vitamin B complex 1 EACH capsule 1 ea PO DAILY cholecalciferol (vitamin D3) 1,000 UNIT capsule 1,000 unit PO DAILY calcium citrate-vitamin D3 1 EACH tablet 1 ea PO DAILY atorvastatin 20 mg tablet 20 mg PO QHS Qty: 90 3RF Primary Care Provider: Manda Castellon Referrals: Manda Castellon MD [Primary Care Provider] - 5-7 Days Disposition Disposition: Home, Self Care
--- NOTE | 2022-03-07 15:15 | CT_ITS ---
INDICATION: Abdominal pain. EXAMINATION: CT ABDOMEN AND PELVIS WITH CONTRAST - CT Abdomen And Pelvis W/ Contrast Injection TECHNIQUE: Helically acquired images were obtained of the abdomen and pelvis following IV contrast. A radiation dose optimization technique was used for this scan. IV Contrast dosage and agent: 100 mL of Isovue-300 Oral contrast: Gastrografin COMPARISON: January 30, 2019. FINDINGS: LOWER CHEST: Lung bases are clear. No cardiomegaly or pericardial effusion. LIVER: Homogeneous. No focal mass. GALLBLADDER AND BILIARY TREE: There is a small noncalcified filling defects within the gallbladder suggesting noncalcified stones or polyps. There is no wall thickening or inflammatory change. No gallbladder distension or wall edema. No intra- or extrahepatic biliary ductal dilation. PANCREAS: Fatty replacement of the pancreas without focal mass. SPLEEN: Normal size without focal cystic or solid mass. ADRENAL GLANDS: No nodules. KIDNEYS AND URETERS: Normal renal size and position. No hydronephrosis. Normal ureters. PERITONEUM: No ascites or free air. No other fluid collection. BOWEL: No evidence of acute appendicitis. No stomach or bowel distension. There is sigmoid diverticulitis without perforation or abscess. LYMPH NODES: No enlarged mesenteric or retroperitoneal lymph nodes. VESSELS: Mild atherosclerotic changes of the abdominal aorta without dissection or aneurysm. Normal IVC. URINARY BLADDER: Unremarkable. REPRODUCTIVE ORGANS: Normal uterus and adnexa. ABDOMINAL WALL: No discrete abdominal or pelvic wall hernia. BONES: No lytic or blastic abnormality. Mild degenerative changes. CT/Abdomen/Pelvis WITH Contrast IMPRESSION: 1. Sigmoid diverticulitis without perforation or abscess. 2. No other major interval change. Electronically Signed: Kannan Garg DO at 17:25 EDT ,
[2022-03-07] MEDS: 0.9% Normal Saline 1,000 ML 1000 ML IV (15:28)
[2022-03-07 15:39] LABS: Absolute Lymphocyte Count 2.38 X10^3/uL (0.83-4.51); Basophil# 0.05 X10^3/uL; Basophil% 0.4 % (0-1); Eosinophil# 0.23 X10^3/uL; Eosinophils% 1.8 % (0-5); Hemoglobin 15.5 g/dL (12.0-15.0); Lymphocyte # 2.38 X10^3/ul (0.83-4.51); Lymphocyte % 18.9 % (19-41); Mean Corp Hgb Conc 33.7 g/dL (32-36); Mean Platelet Vol. 9.6 fl (6.2-12.0); Monocyte# 0.92 X10^3/uL; Monocyte% 7.3 % (0-10); NRBC Flagged by Analyzer 0 % (0-5); Neutrophil # 8.99 X10^3/uL (2.7-7.7); Neutrophil % 71.3 % (47-70); Platelet Count 281 K/mm3 (150-450); RBC Distribution Width CV 13.9 % (11.6-14.6); RBC Distribution Width SD 43.9 fl (35.1-43.9); Red Blood Count 5.35 M/mm3 (4.2-5.4); White Blood Count 12.6 K/mm3 (4.4-11.0)
[2022-03-07 15:52] LABS: ALB/GLOB Ratio 1.1 RATIO (0.9-2.4); AST(SGOT) 18 U/L (15-37); Alanine Aminotransfer ALT/SGPT 28 U/L (13-56); Albumin, Serum 3.7 g/dL (3.2-5.0); Alkaline Phosphatase 78 U/L (45-117); Anion Gap 5 (5-15); BUN 9 mg/dL (7-18); Calcium,Total 9.9 mg/dL (8.5-10.1); Chloride 108 mmol/L (98-107); EST Glomerular Filtration Rate 66 mL/min (>60); Est Glom Filt Rate - Afr Amer 79 mL/min (>60); Estimated Creatinine Clearance 50.84 ml/min; Globulin 3.3 g/dL (2.2-4.2); Glucose 107 mg/dL (74-106); Lipase 84 U/L (73-393); Potassium 4.1 mmol/L (3.5-5.1); Sodium Level 141 mmol/L (136-145)
[2022-03-07 16:51] LABS: Bacteria 0 SEEN /hpf (None Seen); Mucous, Urine 0 SEEN /hpf (<or=2+); Red Blood Cells-Urine 0 SEEN /hpf (0-5); Squamous Epithelial Cells - UA 0 SEEN /hpf (5-10); White Blood Cells 0 SEEN /hpf (0-5)
[2022-03-07 16:54] LABS: Color, Urine Yellow (Yellow); Glucose, Dipstick Normal (Normal); Ketone-Dipstick 5 mg/dl (Negative); Leukocyte Esterase-Dipstick Negative /ul (Negative); Nitrite-Dipstick Negative (Negative); Occult Blood-Urine Negative /ul (Negative); Protein-Dipstick Negative (Negative); Urine Bilirubin Dipstick Negative (Negative); Urine Clarity Clear (Clear); Urine Urobilinogen Normal (Normal); Urine pH 6.5 (5.0 - 8.0)
[2022-03-07] MEDS: Amox/Clavulanate 875 MG Tablet PO (17:56)
--- NOTE | 2022-03-07 18:04 | ED.RN ---
Dr. Meza in with other STEMI pt at time of this discharge. Patient prescription needs changed to [facility]er[facility] and patient needs called when this has been completed. Pt home phone [phone], cell [phone]
== END 2022-03-07 18:00 | disposition home or self-care (01) ==
PROVIDERS: Emergency Provider Emergency Medicine; PCP Internal Medicine; Visit Provider Emergency Medicine
DX: K57.32 Diverticulitis of large intestine without perforation or abscess without bleeding (principal); E78.5 Hyperlipidemia, unspecified; R10.32 Left lower quadrant pain; R35.0 Frequency of micturition; E66.9 Obesity, unspecified
CPT/HCPCS: 74177; 80053; 81001; 83690; 85025; 96360; 99283; J7030; Q9967; A4216; J2405

== ENCOUNTER → 2022-07-19 | Outpatient (CLI) | payer MEDICARE, OTHER, SELFPAY ==
[2022-07-19 10:48] LABS: Vitamin D,25 Hydroxy 34.2 ng/mL
[2022-07-19 10:50] LABS: ALB/GLOB Ratio 0.9 RATIO (0.9-2.4); AST(SGOT) 20 U/L (15-37); Alanine Aminotransfer ALT/SGPT 27 U/L (13-56); Albumin, Serum 3.2 g/dL (3.2-5.0); Alkaline Phosphatase 94 U/L (45-117); Anion Gap 5 (5-15); BUN 14 mg/dL (7-18); BUN/Creat Ratio 16.8 RATIO (10-20); Calcium,Total 9.2 mg/dL (8.5-10.1); Chloride 108 mmol/L (98-107); Creatinine, Serum 0.83 mg/dL (0.55-1.02); EST Glomerular Filtration Rate 72 mL/min (>60); Est Glom Filt Rate - Afr Amer 87 mL/min (>60); Globulin 3.5 g/dL (2.2-4.2); Glucose 97 mg/dL (74-106); Potassium 3.7 mmol/L (3.5-5.1); Protein, Total 6.7 g/dL (6.4-8.2); Sodium Level 142 mmol/L (136-145)
== END | disposition home or self-care (01) ==
LOC: LAB 09:34
PROVIDERS: PCP Internal Medicine; Referring Provider Internal Medicine Endocrinology, Diabetes & Metabolism; Visit Provider Internal Medicine Endocrinology, Diabetes & Metabolism
DX: M81.0 Age-related osteoporosis without current pathological fracture (principal); E55.9 Vitamin D deficiency, unspecified
CPT/HCPCS: 36415; 80053; 82306

== ENCOUNTER → 2022-07-21 | Outpatient (CLI) | payer MEDICARE, OTHER, SELFPAY ==
--- NOTE | 2022-07-21 09:59 | BI_ITS ---
MAMMOGRAPHY - BILATERAL SCREENING 3-D TOMOSYNTHESIS REASON FOR EXAM: Female, 72 years old. Routine screening PERTINENT HISTORY: No significant family history. TECHNIQUE: 2-D mammograms and 3-D Tomosynthesis of the breast (s) were performed. CAD was performed. COMPARISON: 07/08/2021 FINDINGS: The breast composition is almost entirely fat. Scattered benign calcifications are seen. No dense spiculated masses or suspicious microcalcifications are identified. No architectural distortion is identified. There is no skin thickening or retraction. There has been no significant change since the prior study. BI/SCRN MAMM (CAD)W/EVAN BILAT IMPRESSION: No mammographic signs of malignancy. Routine yearly mammograms recommended. ASSESSMENT CATEGORY: BIRADS Category 1: Negative. A letter regarding these results will be sent to the patient by the facility within 30 days. FOLLOW UP RECOMMENDATION: Yearly follow up mammogram recommended. (A) Approximately 10% of breast cancers are not detected by mammography. A normal mammogram should not delay biopsy of a clinically suspicious abnormality. Electronically Signed: Jean-Pierre Gregorio MD at 11:16 EDT ,
== END | disposition home or self-care (01) ==
LOC: OPBI 09:57
PROVIDERS: PCP Internal Medicine; Visit Provider Obstetrics & Gynecology
DX: Z12.31 Encounter for screening mammogram for malignant neoplasm of breast (principal)
CPT/HCPCS: 77063; 77067

== ENCOUNTER → 2022-07-28 | Outpatient (CLI) | payer MEDICARE, OTHER, SELFPAY ==
[2022-07-28] MEDS: Zoledronic Acid 5 MG 100 ML 300 MG IV (10:46)
[2022-07-28] MEDS: 0.9% NaCl Peripheral Flush Adult/Peds IV (10:47)
[2022-07-28 10:53] VITALS: BP 136/70; PULSE 55; RESP 16; TEMP 36.4; O2SAT 100; BMI 35.9
[2022-07-28 10:59] LABS: AST(SGOT) 17 U/L (15-37); Absolute Lymphocyte Count 2.34 X10^3/uL (0.83-4.51); Absolute Neutrophil Count 6.4 X10^3/uL (2.0-7.7); Alanine Aminotransfer ALT/SGPT 27 U/L (13-56); Albumin, Serum 3.4 g/dL (3.2-5.0); Alkaline Phosphatase 97 U/L (45-117); Basophil# 0.07 X10^3/uL; Basophil% 0.7 % (0-1); Bilirubin, Direct 0.19 mg/dL (0.00-0.30); Eosinophil# 0.23 X10^3/uL; Eosinophils% 2.3 % (0-5); Globulin 3.7 g/dL (2.2-4.2); Hemoglobin 15.8 g/dL (12.0-15.0); Lymphocyte # 2.34 X10^3/ul (0.83-4.51); Lymphocyte % 23.8 % (19-41); Mean Corp Hgb Conc 32.9 g/dL (32-36); Mean Corpuscular Hgb 28.2 pg (27.0-32.0); Mean Corpuscular Volume 85.7 fL (81-99); Mean Platelet Vol. 9.4 fl (6.2-12.0); Monocyte# 0.71 X10^3/uL; Monocyte% 7.2 % (0-10); NRBC Flagged by Analyzer 0 % (0-5); Neutrophil # 6.43 X10^3/uL (2.7-7.7); Neutrophil % 65.4 % (47-70); Platelet Count 319 K/mm3 (150-450); Protein, Total 7.1 g/dL (6.4-8.2); RBC Distribution Width CV 13.6 % (11.6-14.6); RBC Distribution Width SD 42.5 fl (35.1-43.9); White Blood Count 9.8 K/mm3 (4.4-11.0)
[2022-07-28 11:18] VITALS: BP 146/61; PULSE 54; RESP 16; TEMP 36.3
[2022-07-28 11:56] LABS: Hepatitis B Surface Antibody Non-Reactive; Hepatitis B Surface Antigen Non-Reactive (Nonreactive); Hepatitis C Antibody Non-Reactive (Nonreactive)
[2022-07-30 15:07] LABS: QNTFERON TB Mitogen Value > 10.00 IU/mL (.); QNTFERON TB Nil Value 0.02 IU/mL (.); QNTFERON TB1+ Ag Value 0.08 IU/mL (.); QNTFERON TB2+ Ag Value 0.05 IU/mL (.)
[2022-07-30 16:06] LABS: Hepatitis B Core Ab Total Negative (Negative); QNTIFERON TB Positive Criteria Negative (Negative)
== END | disposition home or self-care (01) ==
LOC: MEDOUTP 10:16
PROVIDERS: Dermatology; PCP Internal Medicine; Referring Provider Internal Medicine Endocrinology, Diabetes & Metabolism; Visit Provider Internal Medicine Endocrinology, Diabetes & Metabolism
DX: M81.0 Age-related osteoporosis without current pathological fracture (principal); L40.0 Psoriasis vulgaris
CPT/HCPCS: 96365; 36415; 80076; 85025; 86480; 86704; 86706; 86803; 87340; A4216; J3489

== ENCOUNTER → 2022-12-01 | Outpatient (CLI) | payer MEDICARE, OTHER, SELFPAY ==
[2022-12-01 08:31] LABS: AST(SGOT) 22 U/L (15-37); Alanine Aminotransfer ALT/SGPT 25 U/L (13-56); Albumin, Serum 3.1 g/dL (3.2-5.0); Alkaline Phosphatase 92 U/L (45-117); Bilirubin, Direct 0.16 mg/dL (0.00-0.30); Cholesterol 162 mg/dL (200); Globulin 3.4 g/dL (2.2-4.2); High Density Lipoprotein 55 mg/dL; Protein, Total 6.5 g/dL (6.4-8.2); Triglycerides 71 mg/dL; Very Low Density Lipoprotein 14 mg/dL (5-40)
== END | disposition home or self-care (01) ==
LOC: LAB 07:23
PROVIDERS: PCP Internal Medicine; Referring Provider Nurse Practitioner Family; Visit Provider Nurse Practitioner Family
DX: E78.5 Hyperlipidemia, unspecified (principal)
CPT/HCPCS: 36415; 80061; 80076

== ENCOUNTER → 2023-06-14 | Outpatient (CLI) | payer MEDICARE, OTHER, SELFPAY ==
--- OUTSIDE RECORDS SUMMARY | 2023-06-13 12:21 | XMS RPT_ITS | CCD ---
Author Name Unknown Address [address] [place] [address] Organization [facility] Care Team Providers Care Bobj Developer Name Role Phone Roya GABRIEL, Jeffery Primary Care Provider [phone] Allergies Allergy Classification Reported Allergen(s) Allergy Type Date of Onset Reaction(s) Facility (2 sources) Acetaminophen / Codeine Drug Allergy 5 Intolerance, GI Upset [facility] Work Phone: (2 sources) Alendronate Drug Allergy 8 Other: See Comments [facility] (2 sources) buPROPion Drug Allergy 5 Intolerance [facility] Work Phone: (2 sources) Ciprofloxacin Drug Allergy 4 Other: See Comments [facility] (2 sources) Morphine Drug Allergy 5 GI Upset [facility] Work Phone: (2 sources) rosuvastatin Drug Allergy 5 Intolerance [facility] Work Phone: Medications Completed/Discontinued Medications Medication Drug Class(es) Dates Sig (Normalized) Sig (Original) alendronic acid 70 mg oral tablet (2 sources) Bisphosphonate Start: 05-25-2020 take 1 tablet by mouth every week alendronate (FOSAMAX) 70 mg tablet Take 1 tablet by mouth one time a week. Take with a full glass of water, on an empty stomach; do NOT lie down for 30minutes. 12 tablet 3 05/25/2020 Active Problems Active Problems Problem Classification Problem Date Documented Date Episodic/Chronic Disorders of lipid metabolism (2 sources) Mixed hyperlipidemia; Translations: [Mixed hyperlipidemia] Onset: 04-04-2005 08-19-2015 Chronic Genitourinary symptoms and ill-defined conditions (2 sources) Female stress incontinence; Translations: [Stress incontinence (female) (male)] Onset: 09-07-2009 09-07-2009 Chronic Menopausal disorders (2 sources) Postmenopausal bleeding; Translations: [Postmenopausal bleeding] Onset: 09-07-2009 06-23-2016 Chronic Other inflammatory condition of skin (2 sources) Psoriasis; Translations: [Psoriasis, unspecified] Onset: 05-26-2010 06-27-2010 Chronic Other inflammatory condition of skin (2 sources) Rosacea; Translations: [Rosacea, unspecified] Onset: 05-25-2011 12-27-2016 Chronic Other screening for suspected conditions (not mental disorders or infectious disease) (2 sources) Patient encounter status; Translations: [Encounter for screening mammogram for malignant neoplasm of breast] Episodic Prolapse of female genital organs (2 sources) Disorder of rectum; Translations: [Rectocele] Onset: 03-17-2016 03-17-2016 Chronic Thyroid disorders (2 sources) Non-toxic nodular goiter; Translations: [Nontoxic goiter, unspecified] Onset: 06-14-2007 03-17-2016 Chronic Past or Other Problems Problem Classification Problem Date Documented Da te Episodic/Chronic Calculus of urinary tract (2 sources) History of calculus of kidney; Translations: [Personal history of urinary calculi] Onset: 05-22-2015 05-22-2015 Episodic Conditions associated with dizziness or vertigo (2 sources) Benign paroxysmal positional vertigo; Translations: [Benign paroxysmal vertigo, unspecified ear] Onset: 11-19-2015 11-19-2015 Episodic Other bone disease and musculoskeletal deformities (2 sources) Osteopenia; Translations: [Other specified disorders of bone density and structure, unspecified site] Onset: 05-04-2009 05-03-2021 Episodic Results Test Name Value Interpretation Reference Range Facil ity Encounters Encounter Date Encounter Type Care Provider Facility Start: 08-03-2022 ambulatory Jeffery Monique Work Phone: [facility] Start: 08-25-2021 ambulatory Jeffery Monique Work Phone: [facility] [place] Procedures Date Procedure Procedure Detail Performing Clinician Start: 07-06-2020 Mammography Jeffery david MD Work Phone: Start: 03-20-2018 Adult depression scr eening assessment Jeffery Martin MD Work Phone: Start: 10-09-2013 Colonoscopy Jeffery david MD Work Phone: Plan of Treatment Date Care Activity Detail Author Start: 04-09-2028 Urine microalbumin profile DTAP,TDAP,TD (5 - Td or Tdap) [facility] Start: 12-09-2024 LIPID SCREEN LIPID SCREEN [facility] Start: 10-10-2023 Colonoscopy COLONOSCOPY [facility] Start: 10-10-2023 COLORECTAL CANCER SCREENING COLORECTAL CANCER SCREENING [facility] Start: 12-09-2022 DIABETES SCREEN DIABETES SCREEN [facility] Start: 05-08-2022 ADVANCE DIRECTIVE DISCUSSION ADVANCE DIRECTIVE DISCUSSION [facility] Start: 05-08-2022 DEPRESSION ASSESSMENT DEPRESSION ASSESSMENT [facility] Start: 01-06-2022 Influenza vaccination [facility] Start: 07-06-2021 Mammography MAMMOGRAM [facility] Start: 05-08-2021 ADVANCE DIRECTIVE DISCUSSION ADVANCE DIRECTIVE DISCUSSION [facility] Start: 12-29-2020 COVID-19 VACCINE (3 - Booster for Pfizer series) COVID-19 VACCINE (3 - Booster for Pfizer series) [facility] Start: 09-23-2020 COVID-19 VACCINE (3 - Booster for Pfizer series) COVID-19 VACCINE (3 - Booster for Pfizer series) [facility] Start: 03-20-2019 Adult depression screening assessment DEPRESSION SCREENING [facility] Start: 04-10-2014 FECAL OCCULT BLOOD FECAL OCCULT BLOOD [facility] Start: 01-18-2011 SHINGRIX VACCINE (2 of 3) SHINGRIX VACCINE (2 of 3) [facility] Start: 1995 COLOGUARD (FIT-DNA) COLOGUARD (FIT-DNA) [facility] Start: [address] COLONOGRAPHY [facility] Start: 1995 SIGMOIDOSCOPY SIGMOIDOSCOPY [facility] End: 09-02-2023 LOREN SCREENING LOREN SCREENING Radiology Routine Encounter for screening mammogram for breast cancer 1 Occurrences starting 08/03/2022 until 09/02/2023 [facility] Work Phone: Immunizations Immunization Date Immunization Notes Care Provider Kaylen borrero 07-29-2020 COVID-19 vaccine, ag e 12+ yr ([facility] - [facility]) Jeffery Martin MD Work Phone: [facility] Work Phone: 07-08-2020 COVID-19 vaccine, ag e 12+ yr ([facility] - [facility]) Jeffery Martin MD Work Phone: [facility] Work Phone: 02-08-2020 influenza, high-dose , quadrivalent vaccine (FLUZONE HIGH DOSE QUADRIVALENT) Jeffery Martin MD Work Phone: [facility] 02-06-2019 influenza, high dose seasonal, preservative-free Jeffery Martin MD Work Phone: [facility] 04-09-2018 tetanus toxoid, redu livia diphtheria toxoid, and acellular pertussis vaccine, adsorbed Jeffery Martin MD Work Phone: [facility] 06-30-2016 pneumococcal polysaccharide vaccine, 23 valent Jeffery Martin MD Work Phone: [facility] Work Phone: 01-20-2016 influenza, high dose seasonal, preservative-free Jeffery Martin MD Work Phone: [facility] 05-22-2015 pneumococcal conjuga te vaccine, 13 valent Jeffery Martin MD Work Phone: [facility] Work Phone: 02-05-2015 influenza, injectabl e, quadrivalent, contains preservative Jeffery Martin MD Work Phone: [facility] Work Phone: 02-12-2014 influenza, seasonal, injectable Jeffery Martin MD Work Phone: [facility] 03-02-2013 influenza virus vacc ine, unspecified formulation Jeffery Martin MD Work Phone: [facility] Work Phone: 07-02-2012 tetanus toxoid, redu livia diphtheria toxoid, and acellular pertussis vaccine, adsorbed Jeffery Martin MD Work Phone: [facility] 02-25-2012 influenza virus vacc ine, unspecified formulation Jeffery Martin MD Work Phone: [facility] Work Phone: 03-25-2011 influenza virus vacc ine, unspecified formulation Jeffery Martin MD Work Phone: [facility] 11-23-2010 zoster vaccine, live Jeffery Martin MD Work Phone: [facility] 03-23-2010 influenza virus vacc ine, unspecified formulation Jeffery Martin MD Work Phone: [facility] Work Phone: 01-27-2009 influenza virus vacc ine, unspecified formulation Jeffery Martin MD Work Phone: [facility] Work Phone: 03-06-2008 influenza virus vacc ine, whole virus Jeffery Martin MD Work Phone: [facility] 01-04-2007 tetanus toxoid, redu livia diphtheria toxoid, and acellular pertussis vaccine, adsorbed Jeffery Martin MD Work Phone: [facility] Work Phone: 03-10-2006 influenza virus vacc ine, unspecified formulation Jeffery Martin MD Work Phone: [facility] Work Phone: 03-10-2006 pneumococcal polysaccharide vaccine, 23 valent Jeffery Martin MD Work Phone: [facility] Work Phone: 05-31-1996 diphtheria and tetan us toxoids, adsorbed for pediatric use Jeffery Martin MD Work Phone: [facility] Work Phone: Payers Date Payer Category Payer Private Health Insurance HU[employer] HU[employer]NA MEDICARE SUPPLEMENT [id number] 2015-Present [id number] [place] [id number] Indemnity [id number] 2015 Private Health Insurance [employer]NA HU[employer]NA MEDICARE SUPPLEMENT [id number] 2015-Present [phone] [address] [address] [place] [address] Indemnity [id number] 2015 Medicare MEDICARE MEDICAR E A AND B [id number] 2015-Present [phone] [place] [address] Medicare [id number] 2015 Medicare MEDICARE MEDICAR E A AND B [id number] 2015-Present [phone] [place] [address] Medicare [id number] Social History Date Type Detail Facility Tobacco smoking status NHIS Never smoked tobacco [facility] Start: 12-06-2019 Alcohol intake Current drinke r of alcohol (finding) [facility] Start: 12-07-2019 History SDOH Alcohol Frequency 2 [facility] Start: 12-07-2019 History SDOH Alcohol Std Drinks 1 [facility] Start: 12-07-2019 History SDOH Social Connections Phone 4 [facility] Start: 12-07-2019 History SDOH Social Connections Meetings 3 [facility] Start: 12-07-2019 History SDOH Physica l Activity DPW 0 [facility] Start: 12-07-2019 History SDOH Financial 5 [facility] Start: 12-06-2019 Education 12 [facility] Start: 1950 Sex Assigned At Female [facility] Clinical Note 08-03-2022 Note Date & Type Note Facility 08-03-2022 Note Patient Outreach (IN [facility]) DAPHNEY KNIGHT ([id number]) 1950 F Date Time Provider Department 08/03/22 JEFFERY MARTIN During your visit today, we recorded the following information about you: Allergies As of Date: 08/03/2022 Noted Allergy Reaction CIPROFLOXACIN 09/27/2013 14 - Other: See Comments Comments: Myalgia CRESTOR (ROSUVASTATIN CALCIUM) 01/31/2005 5 - Intolerance Comments: MUSCLE ACHES FOSAMAX (ALENDRONATE SODIUM) 03/23/2018 14 - Other: See Comments Comments: Bone aches per office visit note on 03/20/2018 MORPHINE 01/31/2005 8 - GI Upset Comments: NAUSEA TYLENOL-CODEINE #3 (ACETAMINOPHEN*01/31/2005 5 - Intolerance 8 - GI Upset Comments: NAUSEA AND DIZZINESS WELLBUTRIN (BUPROPION HCL) 01/31/2005 5 - Intolerance Comments: GOOFY Date Reviewed: 12/09/2019 Reviewed by: Rosalie Miranda Ma - Fully Assessed Visit Diagnosis:Encounter for screening mammogram for breast cancer [Z12.31] Order(s):[facility] SCREENING [[id number]] Order #: [id number] FUTURE Prescriptions as of 08/08/2022 - alendronate (FOSAMAX) 70 mg tablet Take 1 tablet by mouth one time a week. Take with a full glass of water, on an empty stomach; do NOT lie down for 30minutes. - fluticasone (FLONASE) 50 mcg/actuation nasal spray Use 2 Sprays in each nostril once daily. Rinse mouth after use. - atorvastatin (LIPITOR) 20 mg tablet Take 1 tablet by mouth once daily. - glucosam/chond/collagen/hyalur (JOINT SUPPORT ORAL) Take by mouth. - Zinc 50 mg tab Take 1 tablet by mouth once daily. - vitamin b complex (B COMPLETE) tab Take 1 tablet by mouth once daily. - naproxen sodium (ALEVE ORAL) Take by mouth. - OTC PRODUCT - multivit-min/iron/folic/lutein (CENTRUM SILVER WOMEN ORAL) Take by mouth. - calcium citrate/vitamin D3 (CALCIUM CITRATE + D ORAL) Take by mouth. - Cholecalciferol, Vitamin D3, (VITAMIN D) 1,000 unit cap Take 1,000 Units by mouth once daily. - metroNIDAZOLE 0.75 % cream Insert 1 applicator at bedtime to face - Doxycycline Hyclate 20 mg tablet Take 1 tablet by mouth twice daily. Per Dr. Jeffery Connor (Derm) - Clobetasol Propionate 0.05 % external solution Apply to active spots of psoriasis or seborrheic dermatitis on scalp selectively once to twice per day until clear and then taper off or stop as able. AVOID face, eyes, eyelids, and deep fold areas. - ketoconazole (NIZORAL) 2 % shampoo Shampoo scalp (with 5-10min lather) qoday to qday (every other to every day) x 2-4 weeks and then can taper toward qwk as able when rash is better, as tolerated - MULTI-VITAMIN ORAL Take by mouth. - IBUPROFEN ORAL Take by mouth as needed. - OTC PRODUCT [place] 3: Take one tablet daily, 1000mg. Problem List As Of Date 08/03/2022 Noted Resolved Mixed hyperlipidemia [E78.2] 04/04/2005 Palpitations [R00.2] 04/04/2005 03/17/2016 Spontaneous ecchymoses [R23.3] 04/04/2005 05/22/2015 Non-toxic nodular goiter [E04.9] 06/14/2007 Acute gastritis without mention of hemorrhage [*07/05/2007 05/22/2015 Esophagitis, unspecified [K20.90] 07/05/2007 05/22/2015 XEROSIS///SEBACEOUS GLAND DIS NEC [L73.8] 03/17/2008 12/15/2011 Osteopenia [M85.80] 05/04/2009 Post-menopausal bleeding [N95.0] 09/07/2009 Female Stress Incontinence [N39.3] 09/07/2009 Symptomatic menopausal or female climacteric st*09/07/2009 05/22/2015 Postmenopausal atrophic vaginitis [N95.2] 09/07/2009 05/22/2015 Abdominal Pain, Left Upper Quadrant [R10.12] 09/07/2009 09/07/2009 Abdominal Pain, Right Upper Quadrant [R10.11] 09/07/2009 09/07/2009 Abdominal pain, right lower quadrant [R10.31] 09/07/2009 11/28/2011 Atypical lobular hyperplasia of breast [N60.99] 09/28/2009 05/22/2015 Psoriasis: palmar hands and scalp [L40.9] 05/26/2010 Xerosis cutis [L85.3] 06/27/2010 05/22/2015 Hyperglycemia [R73.9] 11/23/2010 05/22/2015 Acne rosacea [L71.9] 05/25/2011 History of diverticulitis [Z87.19] 09/03/2013 12/27/2016 History of kidney stones [Z87.442] 05/22/2015 BPPV (benign paroxysmal positional vertigo) [H8*11/19/2015 Cervicalgia [M54.2] 12/15/2015 12/27/2016 Rectocele [N81.6] 03/17/2016 COREY (obstructive sleep apnea) [G47.33] 06/09/2016 12/27/2016 Encounter Status:Closed by CLAYTON KAUFMAN on 08/08/22 [facility] Clinical Note 08-25-2021 Note Date & Type Note Facility 08-25-2021 Note Patient Outreach (IN [facility]) DAPHNEY KNIGHT ([id number]) 1950 F Date Time Provider Department 08/25/21 JEFFERY MARTIN During your visit today, we recorded the following information about you: Allergies As of Date: 08/25/2021 Noted Allergy Reaction CIPROFLOXACIN 09/27/2013 14 - Other: See Comments Comments: Myalgia CRESTOR (ROSUVASTATIN CALCIUM) 01/31/2005 5 - Intolerance Comments: MUSCLE ACHES FOSAMAX (ALENDRONATE SODIUM) 03/23/2018 14 - Other: See Comments Comments: Bone aches per office visit note on 03/20/2018 MORPHINE 01/31/2005 8 - GI Upset Comments: NAUSEA TYLENOL-CODEINE #3 (ACETAMINOPHEN*01/31/2005 5 - Intolerance 8 - GI Upset Comments: NAUSEA AND DIZZINESS WELLBUTRIN (BUPROPION HCL) 01/31/2005 5 - Intolerance Comments: GOOFY Date Reviewed: 12/09/2019 Reviewed by: Rosalie Miranda Ma - Fully Assessed Visit Diagnosis:Encounter for screening mammogram for breast cancer [Z12.31] Order(s):[facility] SCREENING [[id number]] Order #: [id number] FUTURE Prescriptions as of 08/30/2021 - alendronate (FOSAMAX) 70 mg tablet Take 1 tablet by mouth one time a week. Take with a full glass of water, on an empty stomach; do NOT lie down for 30minutes. - fluticasone (FLONASE) 50 mcg/actuation nasal spray Use 2 Sprays in each nostril once daily. Rinse mouth after use. - atorvastatin (LIPITOR) 20 mg tablet Take 1 tablet by mouth once daily. - glucosam/chond/collagen/hyalur (JOINT SUPPORT ORAL) Take by mouth. - Zinc 50 mg tab Take 1 tablet by mouth once daily. - vitamin b complex (B COMPLETE) tab Take 1 tablet by mouth once daily. - naproxen sodium (ALEVE ORAL) Take by mouth. - OTC PRODUCT - multivit-min/iron/folic/lutein (CENTRUM SILVER WOMEN ORAL) Take by mouth. - calcium citrate/vitamin D3 (CALCIUM CITRATE + D ORAL) Take by mouth. - Cholecalciferol, Vitamin D3, (VITAMIN D) 1,000 unit cap Take 1,000 Units by mouth once daily. - metroNIDAZOLE 0.75 % cream Insert 1 applicator at bedtime to face - Doxycycline Hyclate 20 mg tablet Take 1 tablet by mouth twice daily. Per Dr. Jeffery Connor (Derm) - Clobetasol Propionate 0.05 % external solution Apply to active spots of psoriasis or seborrheic dermatitis on scalp selectively once to twice per day until clear and then taper off or stop as able. AVOID face, eyes, eyelids, and deep fold areas. - ketoconazole (NIZORAL) 2 % shampoo Shampoo scalp (with 5-10min lather) qoday to qday (every other to every day) x 2-4 weeks and then can taper toward qwk as able when rash is better, as tolerated - MULTI-VITAMIN ORAL Take by mouth. - IBUPROFEN ORAL Take by mouth as needed. - OTC PRODUCT [place] 3: Take one tablet daily, 1000mg. Problem List As Of Date 08/25/2021 Noted Resolved Mixed hyperlipidemia [E78.2] 04/04/2005 Palpitations [R00.2] 04/04/2005 03/17/2016 Spontaneous ecchymoses [R23.3] 04/04/2005 05/22/2015 Non-toxic nodular goiter [E04.9] 06/14/2007 Acute gastritis without mention of hemorrhage [*07/05/2007 05/22/2015 Esophagitis, unspecified [K20.90] 07/05/2007 05/22/2015 XEROSIS///SEBACEOUS GLAND DIS NEC [L73.8] 03/17/2008 12/15/2011 Osteopenia [M85.80] 05/04/2009 Post-menopausal bleeding [N95.0] 09/07/2009 Female Stress Incontinence [N39.3] 09/07/2009 Symptomatic menopausal or female climacteric st*09/07/2009 05/22/2015 Postmenopausal atrophic vaginitis [N95.2] 09/07/2009 05/22/2015 Abdominal Pain, Left Upper Quadrant [R10.12] 09/07/2009 09/07/2009 Abdominal Pain, Right Upper Quadrant [R10.11] 09/07/2009 09/07/2009 Abdominal pain, right lower quadrant [R10.31] 09/07/2009 11/28/2011 Atypical lobular hyperplasia of breast [N60.99] 09/28/2009 05/22/2015 Psoriasis: palmar hands and scalp [L40.9] 05/26/2010 Xerosis cutis [L85.3] 06/27/2010 05/22/2015 Hyperglycemia [R73.9] 11/23/2010 05/22/2015 Acne rosacea [L71.9] 05/25/2011 History of diverticulitis [Z87.19] 09/03/2013 12/27/2016 History of kidney stones [Z87.442] 05/22/2015 BPPV (benign paroxysmal positional vertigo) [H8*11/19/2015 Cervicalgia [M54.2] 12/15/2015 12/27/2016 Rectocele [N81.6] 03/17/2016 COREY (obstructive sleep apnea) [G47.33] 06/09/2016 12/27/2016 Encounter Status:Closed by OSMANI KAUFMANR on 08/30/21 [facility] History of Past illness Narrative 06-09-2016 Note Date & Type Note Facility documented as of this encounter (statuses as of 08/30/2021) [facility] History of Past illness Narrative 06-09-2016 Note Date & Type Note Facility documented as of this encounter (statuses as of 08/08/2022) [facility] Evaluation note Note Date & Type Note Facility documented in this encounter [facility] Evaluation note Note Date & Type Note Facility documented in this encounter [facility] Reason for referral (narrative) Diagnostic Procedure Only (Routine) - Pending Review Note Date & Type Note Facility Referral ID Status Reason Start Date Expiration Date Visits Requested Visits Authorized [id number] Pending Review Auto-Generat ed Referral 08/25/2021 09/24/2022 1 1 T [facility] Reason for referral (narrative) Diagnostic Procedure Only (Routine) - Pending Review Note Date & Type Note Facility Referral ID Status Reason Start Date Expiration Date Visits Requested Visits Authorized [id number] Pending Review Auto-Generat ed Referral 08/03/2022 09/02/2023 1 1 [facility] Summary Purpose Family History No Family History Records FoundNo Family History Records Found Advance Directives No Advanced Directives Records FoundNo Advanced Directives Records Found Additional Source Comments INFORMATION SOURCE (unrecogn ized section and content) DATE CREATED AUTHOR AUTHOR'S ORGANIZ ATION 08/10/2022 [facility] Source Comments (unrecognize d section and content) In the event this informatio n is protected by the Federal Confidentiality of Alcohol and Drug Abuse Patient Records regulations: The Federal rules restrict any use of the information to criminally investigate or prosecute any alcohol or drug abuse patient[facility] the event this information is protected by the Federal Confidentiality of Alcohol and Drug Abuse Patient Records regulations: The Federal rules restrict any use of the information to criminally investigate or prosecute any alcohol or drug abuse patient.[facility] Care Teams (unrecognized sec tion and content) Bobj Developer Relationship Specialty Start Date End Date Jeffery Martin MD [address] [place] [address] PCP - General Internal Medicine 12/27/16 FOR RECORDS PERTAINING TO PATIENTS WHO ARE OR HAVE BEEN ENROLLED IN A CHEMICAL DEPENDENCY/SUBSTANCEABUSE PROGRAM, SOME INFORMATION MAY BE OMITTED. This clinical summary was aggregated from multiple sources. Caution should be exercised in using it in the provision of clinical care. This summary normalizes information from multiple sources, and as a consequence, information in this document may materially change the coding, format and clinical context of patient data. In addition, data may be omitted in some cases. CLINICAL DECISIONS SHOULD BE BASED ON THE PRIMARY CLINICAL RECORDS. [facility]. provides no warranty or guarantee of the accuracy or completeness of information in this document.
--- OUTSIDE RECORDS SUMMARY | 2023-06-14 08:11 | XMS RPT_ITS | CCD ---
Author Name Unknown Address [address] [place] [address] Organization [facility] Care Team Providers Care Mold Dresser Name Role Phone Roya GABRIEL, Jeffery Primary Care Provider [phone] Allergies Allergy Classification Reported Allergen(s) Allergy Type Date of Onset Reaction(s) Facility (2 sources) Acetaminophen / Codeine Drug Allergy 5 Intolerance, GI Upset [facility] Work Phone: (2 sources) Alendronate Drug Allergy 8 Other: See Comments [facility] (2 sources) buPROPion Drug Allergy 5 Intolerance [facility] Work Phone: (2 sources) Ciprofloxacin Drug Allergy 4 Other: See Comments [facility] (2 sources) Morphine Drug Allergy 5 GI Upset [facility] Work Phone: (2 sources) rosuvastatin Drug Allergy 5 Intolerance [facility] Work Phone: Medications Completed/Discontinued Medications Medication Drug [...] Jeffery Monique Work Phone: [facility] Start: 08-25-2021 ambulatory Jeffery Monique Work Phone: [facility] Procedures Date Procedure Procedure Detail Performing Clinician Start: 07-06-2020 Mammography Jeffery david MD Work Phone: Start: 03-20-2018 Adult depression scr eening assessment Jeffery Martin MD Work Phone: Start: 10-09-2013 Colonoscopy Jeffery david MD Work Phone: Plan of Treatment Date Care Activity Detail Author Start: 04-09-2028 Urine microalbumin profile DTAP,TDAP,TD (5 - Td or Tdap) [facility] Start: 12-09-2024 LIPID SCREEN LIPID SCREEN [facility] Start: 10-10-2023 Colonoscopy COLONOSCOPY [facility] Start: 10-10-2023 COLORECTAL CANCER SCREENING COLORECTAL CANCER SCREENING [facility] Start: 12-09-2022 DIABETES SCREEN DIABETES SCREEN [facility] Start: 05-08-2022 ADVANCE DIRECTIVE DISCUSSION ADVANCE DIRECTIVE DISCUSSION [facility] Start: 05-08-2022 DEPRESSION ASSESSMENT DEPRESSION ASSESSMENT [facility] Start: 01-06-2022 Influenza vaccination [facility] Start: 07-06-2021 Mammography MAMMOGRAM [facility] Start: 05-08-2021 ADVANCE DIRECTIVE DISCUSSION ADVANCE DIRECTIVE DISCUSSION [facility] Start: 12-29-2020 COVID-19 VACCINE (3 - Booster for Pfizer series) COVID-19 VACCINE (3 - Booster for Pfizer series) [facility] Start: 09-23-2020 COVID-19 VACCINE (3 - Booster for Pfizer series) COVID-19 VACCINE (3 - Booster for Pfizer series) [facility] Start: 03-20-2019 Adult depression screening assessment DEPRESSION SCREENING [facility] Start: 04-10-2014 FECAL OCCULT BLOOD FECAL OCCULT BLOOD [facility] Start: 01-18-2011 SHINGRIX VACCINE (2 of 3) SHINGRIX VACCINE (2 of 3) [facility] Start: 1995 COLOGUARD (FIT-DNA) COLOGUARD (FIT-DNA) [facility] Start: [address] COLONOGRAPHY [facility] Start: 1995 SIGMOIDOSCOPY SIGMOIDOSCOPY [facility] End: 09-02-2023 LOREN SCREENING LOREN SCREENING Radiology Routine Encounter for screening mammogram for breast cancer 1 Occurrences starting 08/03/2022 until 09/02/2023 [facility] Work Phone: Immunizations Immunization Date Immunization Notes Care Provider Kaylen borrero 07-29-2020 COVID-19 vaccine, ag e 12+ yr (PFIZER-[facility]IONTECH - [facility]) Jeffery Martin MD Work Phone: [facility] Work Phone: 07-08-2020 COVID-19 vaccine, ag e 12+ yr (PFIZER-[facility]IONTECH - [facility]) Jeffery Martin MD Work Phone: [facility] Work Phone: 02-08-2020 influenza, high-dose , quadrivalent vaccine (FLUZONE HIGH DOSE QUADRIVALENT) Jeffery Martin MD Work Phone: [facility] 02-06-2019 influenza, high dose seasonal, preservative-free Jeffery Martin MD Work Phone: [facility] 04-09-2018 tetanus toxoid, redu livia diphtheria toxoid, and acellular pertussis vaccine, adsorbed Jeffery Martin MD Work Phone: [facility] 06-30-2016 pneumococcal polysaccharide vaccine, 23 valent Jeffery Martin MD Work Phone: [facility] Work Phone: 01-20-2016 influenza, high dose seasonal, preservative-free Jeffery Martin MD Work Phone: [facility] 05-22-2015 pneumococcal conjuga te vaccine, 13 valent Jeffery Martin MD Work Phone: [facility] Work Phone: 02-05-2015 influenza, injectabl e, quadrivalent, contains preservative Jeffery Martin MD Work Phone: [facility] Work Phone: 02-12-2014 influenza, seasonal, injectable Jeffrey Martin MD Work Phone: [facility] 03-02-2013 influenza virus vacc ine, unspecified formulation Jeffery Martin MD Work Phone: [facility] Work Phone: 07-02-2012 tetanus toxoid, redu livia diphtheria toxoid, and acellular pertussis vaccine, adsorbed Jeffery Martin MD Work Phone: [facility] 02-25-2012 influenza virus vacc ine, unspecified formulation Jeffery Martin MD Work Phone: [facility] Work Phone: 03-25-2011 influenza virus vacc ine, unspecified formulation Jeffery Martin MD Work Phone: [facility] 11-23-2010 zoster vaccine, live Jeffery Martin MD Work Phone: [facility] 03-23-2010 influenza virus vacc ine, unspecified formulation Jeffery Martin MD Work Phone: [facility] Work Phone: 01-27-2009 influenza virus vacc ine, unspecified formulation Jeffery Martin MD Work Phone: [facility] Work Phone: 03-06-2008 influenza virus vacc ine, whole virus Jeffery Martin MD Work Phone: [facility] 01-04-2007 tetanus toxoid, redu livia diphtheria toxoid, and acellular pertussis vaccine, adsorbed Jeffery Martin MD Work Phone: [facility] Work Phone: 03-10-2006 influenza virus vacc ine, unspecified formulation Jeffery Martin MD Work Phone: [facility] Work Phone: 03-10-2006 pneumococcal polysaccharide vaccine, 23 valent Jeffery Martin MD Work Phone: [facility] Work Phone: 05-31-1996 diphtheria and tetan us toxoids, adsorbed for pediatric use Jeffery Martin MD Work Phone: [facility] Work Phone: Payers Date Payer Category Payer Private Health Insurance [employer] HUMANA MEDICARE SUPPLEMENT [id number] 2015-Present [id number] [place] [id number] Indemnity [id number] 2015 Private Health Insurance HUMANA HUMANA MEDICARE SUPPLEMENT [id number] 2015-Present [phone] [address] [address] [place] [address] Indemnity [id number] 2015 Medicare MEDICARE MEDICAR E A AND B [id number] 2015-Present [phone] [place] [address] Medicare [id number] 2015 Medicare MEDICARE MEDICAR E A AND B [id number] 2015-Present [phone] [place] [address] Medicare [id number] Social History Date Type Detail Facility Tobacco smoking status NHIS Never smoked tobacco [facility] Start: 12-06-2019 Alcohol intake Current drinke r of alcohol (finding) [facility] Start: 12-07-2019 History SDOH Alcohol Frequency 2 [facility] Start: 12-07-2019 History SDOH Alcohol Std Drinks 1 [facility] Start: 12-07-2019 History SDOH Social Connections Phone 4 [facility] Start: 12-07-2019 History SDOH Social Connections Meetings 3 [facility] Start: 12-07-2019 History SDOH Physica l Activity DPW 0 [facility] Start: 12-07-2019 History SDOH Financial 5 [facility] Start: 12-06-2019 Education 12 [facility] Start: 1950 Sex Assigned At Female C [facility] Clinical Note 08-03-2022 Note Date & Type Note Facility 08-03-2022 Note Patient Outreach (IN [facility]) DAPHNEY KNIGHT ([id number]) 1950 F Date Time Provider Department 08/03/22 [...] for screening mammogram for breast cancer [Z12.31] Order(s):[facility] SCREENING [[id number]] Order #: [id number] FUTURE Prescriptions as of 08/08/2022 - alendronate [...] by mouth as needed. - OTC PRODUCT Bowen 3: Take one tablet daily, 1000mg. Problem [...] Encounter Status:Closed by CLAYTON KAUFMAN on 08/08/22 [facility] Clinical Note 08-25-2021 Note Date & Type Note Facility 08-25-2021 Note Patient Outreach (IN [facility]) DAPHNEY KNIGHT ([id number]) 1950 F Date Time Provider Department 08/25/21 [...] for screening mammogram for breast cancer [Z12.31] Order(s):[facility] SCREENING [[id number]] Order #: [id number] FUTURE Prescriptions as of 08/30/2021 - alendronate [...] by mouth as needed. - OTC PRODUCT Bowen 3: Take one tablet daily, 1000mg. Problem [...] Encounter Status:Closed by OSMANI KAUFMANR on 08/30/21 [facility] History of Past illness Narrative 06-09-2016 Note Date & Type Note Facility documented as of this encounter (statuses as of 08/30/2021) [facility] History of Past illness Narrative 06-09-2016 Note Date & Type Note Facility documented as of this encounter (statuses as of 08/08/2022) [facility] Evaluation note Note Date & Type Note Facility documented in this encounter [facility] Evaluation note Note Date & Type Note Facility documented in this encounter [facility] Reason for referral (narrative) Diagnostic Procedure Only (Routine) - Pending Review Note Date & Type Note Facility Referral ID Status Reason Start Date Expiration Date Visits Requested Visits Authorized [id number] Pending Review Auto-Generat ed Referral 08/25/2021 09/24/2022 1 1 T [facility] Reason for referral (narrative) Diagnostic Procedure Only (Routine) - Pending Review Note Date & Type Note Facility Referral ID Status Reason Start Date Expiration Date Visits Requested Visits Authorized [id number] Pending Review Auto-Generat ed Referral 08/03/2022 09/02/2023 1 1 [facility] Summary Purpose Family History No Family History Records FoundNo Family History Records Found Advance Directives No Advanced Directives Records FoundNo Advanced Directives Records Found Additional Source Comments INFORMATION SOURCE (unrecogn ized section and content) DATE CREATED AUTHOR AUTHOR'S ORGANIZ ATION 08/10/2022 [facility] Source Comments (unrecognize d section and content) In the event this informatio n is protected by the Federal Confidentiality of Alcohol and Drug Abuse Patient Records regulations: The Federal rules restrict any use of the information to criminally investigate or prosecute any alcohol or drug abuse patient[facility] the event this information is protected by the Federal Confidentiality of Alcohol and Drug Abuse Patient Records regulations: The Federal rules restrict any use of the information to criminally investigate or prosecute any alcohol or drug abuse patient.[facility] Care Teams (unrecognized sec tion and content) Mold Dresser Relationship Specialty Start Date End Date Jeffery Martin MD [address] [place] [address] PCP - General Internal Medicine 12/27/16 FOR [...] BE BASED ON THE PRIMARY CLINICAL RECORDS. So Protect Me [facility]. provides no warranty or guarantee of the accuracy or completeness of information in this document.
[2023-06-14 08:46] LABS: Erythrocyte Sedimentation Rate 2 mm/hr (0-30)
[2023-06-14 08:49] LABS: Absolute Neutrophil Count 5.5 X10^3/uL (2.0-7.7); Basophil# 0.06 X10^3/uL; Basophil% 0.7 % (0-1); Eosinophil# 0.17 X10^3/uL; Hematocrit 44.7 % (37-47); Hemoglobin 14.4 g/dL (12.0-15.0); Lymphocyte % 23.4 % (19-41); Mean Corp Hgb Conc 32.2 g/dL (32-36); Mean Corpuscular Hgb 27.6 pg (27.0-32.0); Mean Corpuscular Volume 85.6 fL (81-99); Mean Platelet Vol. 9.8 fl (6.2-12.0); Monocyte# 0.71 X10^3/uL; Monocyte% 8.3 % (0-10); NRBC Flagged by Analyzer 0 % (0-5); Neutrophil # 5.52 X10^3/uL (2.7-7.7); Neutrophil % 64.7 % (47-70); Platelet Count 269 K/mm3 (150-450); RBC Distribution Width CV 13.6 % (11.6-14.6); RBC Distribution Width SD 42.5 fl (35.1-43.9); Red Blood Count 5.22 M/mm3 (4.2-5.4); White Blood Count 8.5 K/mm3 (4.4-11.0)
[2023-06-14 10:43] LABS: AST(SGOT) 17 U/L (15-37); Alanine Aminotransfer ALT/SGPT 26 U/L (13-56); Albumin, Serum 3.1 g/dL (3.2-5.0); Alkaline Phosphatase 71 U/L (45-117); Anion Gap 2 (5-15); BUN 8 mg/dL (7-18); BUN/Creat Ratio 10.5 RATIO (10-20); Bilirubin, Direct 0.22 mg/dL (0.00-0.30); CRP 5.92 mg/L (0.0-3.0); Calcium,Total 8.7 mg/dL (8.5-10.1); Chloride 112 mmol/L (98-107); Creatinine, Serum 0.76 mg/dL (0.55-1.02); EST Glomerular Filtration Rate 79 mL/min (>60); Est Glom Filt Rate - Afr Amer 96 mL/min (>60); Free T3 2.3 pg/mL (2.18-3.98); Globulin 3.2 g/dL (2.2-4.2); Glucose 101 mg/dL (74-106); Potassium 3.8 mmol/L (3.5-5.1); Protein, Total 6.3 g/dL (6.4-8.2); Sodium Level 139 mmol/L (136-145); T4 Free Direct 1.23 ng/dL (0.76-1.46); Thyroid Stim Hormone (TSH) 1.98 uIU/mL (0.358-3.74)
[2023-06-14 11:47] LABS: Cholesterol 139 mg/dL (200); High Density Lipoprotein 41 mg/dL; Triglycerides 96 mg/dL; Very Low Density Lipoprotein 19 mg/dL (5-40)
[2023-06-15 09:09] LABS: ANTINUCLEAR ANTIBODIES DIRECT Negative (Negative)
== END | disposition home or self-care (01) ==
LOC: LAB 07:53
PROVIDERS: Nurse Practitioner Family; PCP Internal Medicine; Referring Provider Internal Medicine Endocrinology, Diabetes & Metabolism; Visit Provider Internal Medicine Endocrinology, Diabetes & Metabolism
DX: E55.9 Vitamin D deficiency, unspecified (principal); M17.11 Unilateral primary osteoarthritis, right knee; M81.0 Age-related osteoporosis without current pathological fracture; E66.9 Obesity, unspecified; L40.9 Psoriasis, unspecified; E78.00 Pure hypercholesterolemia, unspecified
CPT/HCPCS: 36415; 80053; 80061; 82248; 82306; 84439; 84443; 84481; 85025; 85652; 86038; 86140; 86225; 86235

== ENCOUNTER → 2023-08-01 | Outpatient (CLI) | payer MEDICARE, OTHER, SELFPAY ==
--- NOTE | 2023-08-01 07:48 | BI_ITS ---
MAMMOGRAPHY - BILATERAL SCREENING REASON FOR EXAM: Female, 73 years old. Routine annual screening examination. PERTINENT HISTORY: Non-contributory. History of prior right stereotactic breast biopsy and right excisional breast biopsy. TECHNIQUE: Digital bilateral breast evan (3D mammographic acquisition) in the CC and MLO projections. 2-D mediolateral oblique (MLO) and craniocaudad (CC) views of both breasts were obtained. CAD: Full Field Digital Mammography with Computer Added Detection was performed. COMPARISON: Comparison is made with prior study of July 21, 2022 and July 08, 2021. FINDINGS: Breast Composition: The breasts are almost entirely fatty. There are no dominant masses or suspicious calcifications. No other significant abnormalities are identified. There has been no significant change since the prior study. BI/SCRN MAMM (CAD)W/EVAN BILAT IMPRESSION: Stable bilateral screening mammogram. Yearly follow-up mammogram recommended. (A) ASSESSMENT CATEGORY: BIRADS Category 1: Negative. A letter regarding these results will be sent to the patient by the facility within 30 days. Approximately 10% of breast cancers are not detected by mammography. A normal mammogram should not delay biopsy of a clinically suspicious abnormality. [id number] Electronically Signed: True Ribeiro MD at 9:08 EDT ,
[2023-08-04 16:37] LABS: HPV Reflexed? NOT INDICATED
== END | disposition home or self-care (01) ==
PROVIDERS: PCP Internal Medicine; Referring Provider Obstetrics & Gynecology; Visit Provider Obstetrics & Gynecology
DX: Z12.31 Encounter for screening mammogram for malignant neoplasm of breast (principal); Z12.4 Encounter for screening for malignant neoplasm of cervix
CPT/HCPCS: 77063; 77067; 88175; G0145

== ENCOUNTER 2023-08-04 08:02 | Outpatient (CLI) | payer MEDICARE, OTHER, SELFPAY ==
[2023-08-04 08:09] VITALS: BP 130/56; PULSE 56; RESP 16; TEMP 35.7; O2SAT 100
[2023-08-04] MEDS: 0.9% NaCl Peripheral Flush Adult/Peds IV (08:14)
[2023-08-04] MEDS: Zoledronic Acid 5 MG 100 ML 300 MG IV (08:17)
[2023-08-04 08:45] VITALS: BP 120/52; PULSE 50; RESP 16; TEMP 35.9
== END 2023-08-04 08:03 | disposition home or self-care (01) ==
LOC: MEDOUTP 08:03
PROVIDERS: Referring Provider Internal Medicine Endocrinology, Diabetes & Metabolism; Visit Provider Internal Medicine Endocrinology, Diabetes & Metabolism
DX: M81.0 Age-related osteoporosis without current pathological fracture (principal)
CPT/HCPCS: 96365; A4216; J3489

== ENCOUNTER → 2023-12-11 | Outpatient (CLI) | payer MEDICARE, OTHER, SELFPAY ==
[2023-12-11 11:06] LABS: AST(SGOT) 27 U/L (15-37); Alanine Aminotransfer ALT/SGPT 29 U/L (13-56); Albumin, Serum 3.4 g/dL (3.2-5.0); Alkaline Phosphatase 82 U/L (45-117); Bilirubin, Direct 0.23 mg/dL (0.00-0.30); Cholesterol 160 mg/dL (200); Globulin 3.5 g/dL (2.2-4.2); High Density Lipoprotein 51 mg/dL; Protein, Total 6.9 g/dL (6.4-8.2); Triglycerides 83 mg/dL; Very Low Density Lipoprotein 17 mg/dL (5-40)
== END | disposition home or self-care (01) ==
PROVIDERS: PCP Internal Medicine; Referring Provider Nurse Practitioner Family; Visit Provider Nurse Practitioner Family
DX: E78.00 Pure hypercholesterolemia, unspecified (principal)
CPT/HCPCS: 36415; 80061; 80076

== ENCOUNTER → 2024-04-30 | Outpatient (CLI) | payer MEDICARE, OTHER, SELFPAY ==
--- NOTE | 2024-04-30 08:16 | BD_ITS ---
STUDY: DUAL ENERGY X-RAY ABSORPTIOMETRY / DXA REASON FOR EXAM: Female, 74 years old. compare TECHNIQUE: Bone Mineral Density (BMD) measurements of lumbar spine and bilateral hips were obtained. COMPARISON: 01/19/2021 FINDINGS: Lumbar Spine (L1-L4): g/cm2 (1.001) / T-score (-0.4) / Z-score (1.9) Findings are suggestive of normal bone density with a low fracture risk. Left Femur Total: g/cm2 (0.779) / T-score (-1.3) / Z-score (0.4) Left Femoral Neck: g/cm2 (0.565) / T-score (-2.6) / Z-score (-0.5) Right Femur Total: g/cm2 (0.854) / T-score (-0.7) / Z-score (1.0) Right Femoral Neck: g/cm2 (0.588) / T-score (-2.4) / Z-score (-0.3) BD/Dexa Bone Density Study IMPRESSION: The patient is considered osteoporotic as outlined below according to World Gene Organization (WHO) criteria with a high fracture risk. There has been improvement of bone density since the previous examination. Reference Information: The T-score is the number of standard deviations above or below the standard which is normal for young adults at their peak bone mineral density. The World Health Organization (WHO) interprets the T-scores as follows: Above -1 Normal bone density Between -1 and -2.5 Osteopenia Equal to / or below -2.5 Osteoporosis As a practical clinical guideline, osteopenia may be graded as follows: Mild -1 through -1.5 Moderate -1.6 through -2.0 Severe -2.1 through -2.4 The Z-score is the number of standard deviations above or below age-matched controls. A Z-score of less than -1.5 would be considered abnormal. References: 1. NIH Osteoporosis and Related Bone Diseases www osteo.org 2. International Society for Clinical Densitometry www iscd.org 3. National Osteoporosis Foundation www nof.org Electronically Signed: Chris Young MD at 14:05 EST ,
== END | disposition home or self-care (01) ==
LOC: OPBD 08:14
PROVIDERS: PCP Internal Medicine; Referring Provider Internal Medicine Endocrinology, Diabetes & Metabolism; Visit Provider Internal Medicine Endocrinology, Diabetes & Metabolism
DX: M81.0 Age-related osteoporosis without current pathological fracture (principal)
CPT/HCPCS: 77080

== ENCOUNTER → 2024-06-25 | Outpatient (CLI) | payer MEDICARE, OTHER, SELFPAY ==
[2024-06-25 10:51] LABS: Color, Urine Yellow (Yellow); Glucose, Dipstick Normal (Normal); Ketone-Dipstick Negative (Negative); Leukocyte Esterase-Dipstick 25 /ul (Negative); Nitrite-Dipstick Negative (Negative); Occult Blood-Urine Negative /ul (Negative); Protein-Dipstick Negative (Negative); Urine Bilirubin Dipstick Negative (Negative); Urine Clarity Clear (Clear); Urine Urobilinogen Normal (Normal)
[2024-06-25 11:26] LABS: ALB/GLOB Ratio 0.9 RATIO (0.9-2.4); AST(SGOT) 27 U/L (15-37); Alanine Aminotransfer ALT/SGPT 35 U/L (13-56); Albumin, Serum 3.3 g/dL (3.2-5.0); Alkaline Phosphatase 95 U/L (45-117); Anion Gap 6 (5-15); BUN 11 mg/dL (7-18); Calcium,Total 9.8 mg/dL (8.5-10.1); Chloride 105 mmol/L (98-107); Creatinine, Serum 0.73 mg/dL (0.55-1.02); EST Glomerular Filtration Rate 82 mL/min (>60); Est Glom Filt Rate - Afr Amer 100 mL/min (>60); Globulin 3.6 g/dL (2.2-4.2); Glucose 82 mg/dL (74-106); Potassium 4.4 mmol/L (3.5-5.1); Protein, Total 6.9 g/dL (6.4-8.2); Sodium Level 140 mmol/L (136-145)
[2024-06-27 14:41] LABS: Vitamin D,25 Hydroxy 34.6 ng/mL
== END | disposition home or self-care (01) ==
LOC: LAB 10:20
PROVIDERS: PCP Internal Medicine; Referring Provider Internal Medicine Endocrinology, Diabetes & Metabolism; Visit Provider Internal Medicine Endocrinology, Diabetes & Metabolism
DX: E55.9 Vitamin D deficiency, unspecified (principal); M81.0 Age-related osteoporosis without current pathological fracture; R30.0 Dysuria
CPT/HCPCS: 36415; 80053; 81002; 82306; 87086; 87088

== ENCOUNTER → 2024-07-04 | Outpatient (CLI) | payer MEDICARE, OTHER, SELFPAY ==
[2024-07-04 10:40] LABS: AST(SGOT) 30 U/L (<=31); Alanine Aminotransfer ALT/SGPT 28 U/L (<=34); Albumin, Serum 3.9 g/dL (3.4-4.8); Alkaline Phosphatase 96 U/L (35-104); Bilirubin, Direct 0.42 mg/dL (0.00-0.30); Globulin 2.9 g/dL (2.2-4.2); Protein, Total 6.9 g/dL (5.9-8.4); Total Bilirubin 1.06 mg/dL (0.00-1.30)
[2024-07-04 11:14] LABS: Cholesterol 169 mg/dL (<=200); High Density Lipoprotein 53 mg/dL; Low Density Lipoprotein Calc. 100 mg/dL; Triglycerides 80 mg/dL; Very Low Density Lipoprotein 16 mg/dL (5-40); cholesterol:hdl ratio screen 3.21
== END | disposition home or self-care (01) ==
LOC: LAB 08:34
PROVIDERS: PCP Internal Medicine; Referring Provider Nurse Practitioner Family; Visit Provider Nurse Practitioner Family
DX: E78.5 Hyperlipidemia, unspecified (principal)
CPT/HCPCS: 36415; 80061; 80076

== ENCOUNTER → 2024-08-09 | Outpatient (CLI) | payer MEDICARE, OTHER, SELFPAY ==
--- NOTE | 2024-08-09 08:24 | BI_ITS ---
EXAM: SCRN MAMM (CAD)W/EVAN BILAT 08/09/2024 CLINICAL HISTORY: F, Age 74 y/o , SCREENING TECHNIQUE: Bilateral screening digital breast tomosynthesis with 2D and 3D images. Computer aided detection. COMPARISON: Prior exam(s) dated 08/01/2023. FINDINGS: TISSUE DENSITY: The breast tissue is composed of scattered area of fibroglandular density. Bilateral Breast Mammographic Findings: No significant masses, calcifications or other abnormalities are identified. BI/SCRN MAMM (CAD)W/EVAN BILAT IMPRESSION: Right Breast: BIRADS 1 NEGATIVE. Left Breast: BIRADS 1 NEGATIVE. OVERALL FINAL ASSESSMENT: BIRADS 1 NEGATIVE. RECOMMENDATION: Routine annual follow-up in 1 Year A letter with findings and recommendations will be mailed to the patient. Reading Location: [id number]
== END | disposition home or self-care (01) ==
LOC: OPBI 08:23
PROVIDERS: PCP Internal Medicine; Referring Provider Obstetrics & Gynecology; Visit Provider Obstetrics & Gynecology
DX: Z12.31 Encounter for screening mammogram for malignant neoplasm of breast (principal)
CPT/HCPCS: 77063; 77067

== ENCOUNTER → 2024-12-19 | Outpatient (CLI) | payer MEDICARE, OTHER, SELFPAY ==
[2024-12-19 11:04] LABS: Hematocrit 47.4 % (37-47); Hemoglobin 15.7 g/dL (12.0-15.0); Immature Granulocytes Count 0.050 X10^3/uL (0.0-0.0); Mean Corp Hgb Conc 33.1 g/dL (32-36); Mean Corpuscular Volume 83.3 fL (81-99); Mean Platelet Vol. 9.7 fl (6.2-12.0); NRBC Flagged by Analyzer 0 % (0-5); Platelet Count 289 K/mm3 (150-450); RBC Distribution Width CV 13.9 % (11.6-14.6); RBC Distribution Width SD 42.5 fl (35.1-43.9); Red Blood Count 5.69 M/mm3 (4.2-5.4); White Blood Count 9.3 K/mm3 (4.4-11.0)
[2024-12-19 11:54] LABS: AST(SGOT) 29 U/L (<=31); Alanine Aminotransfer ALT/SGPT 25 U/L (<=34); Albumin, Serum 4.1 g/dL (3.4-4.8); Alkaline Phosphatase 96 U/L (35-104); Anion Gap 12 (5-15); BUN 11 mg/dL (4-19); BUN/Creat Ratio 13.0 RATIO (10-20); Calcium,Total 9.8 mg/dL (7.6-11.0); Carbon Dioxide 24.0 mmol/L (21.0-32.0); Chloride 105 mmol/L (98-108); Cholesterol 148 mg/dL (<=200); Globulin 3.0 g/dL (2.2-4.2); Glucose 96 mg/dL (70-99); Low Density Lipoprotein Calc. 83 mg/dL; Magnesium 2.0 mg/dL (1.5-2.2); Potassium 4.1 mmol/L (3.3-5.1); Triglycerides 87 mg/dL; Very Low Density Lipoprotein 17 mg/dL (5-40); Vitamin D,25 Hydroxy 27.9 ng/mL (30-100); cholesterol:hdl ratio screen 3.10
== END | disposition home or self-care (01) ==
PROVIDERS: PCP Internal Medicine; Referring Provider Internal Medicine; Visit Provider Internal Medicine
DX: Z13.220 Encounter for screening for lipoid disorders (principal); E66.812 Obesity, class 2; E66.09 Other obesity due to excess calories; E55.9 Vitamin D deficiency, unspecified; G47.33 Obstructive sleep apnea (adult) (pediatric); Z68.37 Body mass index [BMI] 37.0-37.9, adult; E78.5 Hyperlipidemia, unspecified
CPT/HCPCS: 36415; 80053; 80061; 82306; 83735; 84443; 85025

== ENCOUNTER → 2025-01-14 | Outpatient (CLI) | payer MEDICARE, OTHER, SELFPAY ==
--- OUTSIDE RECORDS SUMMARY | 2025-01-14 06:51 | XMS RPT_ITS | CCD ---
Author Organization [facility] Care Team Providers Care Grease Maker Head Name Role Phone Jeffery Martin MD Primary Care Provider 1([facility])[phone] Dr. Manda Castellon Primary Care Provider Dr. Manda Castellon Referring Provider 1([facility]) [phone] Agustín BARRON, VASCULAR ULTRASOUND TECHNOLOGIST-C Jethro Attending Provider 1([facility])[phone] Dr. Manda Castellon Primary Care Provider Dr. Manda Castellon Referring Provider 1([facility])[phone] [place] VASCULAR ULTRASOUND TECHNOLOGIST, VASCULAR ULTRASOUND TECHNOLOGIST-C Dereje Rueda Attending Provider 1([facility])[phone] Dr. Stiven Sierra Attending Provider 1([facility])[phone] Dr. Jessica Dale Attending Provider 1([facility] )[phone] Jeffery Martin MD Primary Care Provider 1([facility])[phone] Dr. Manda Castellon Primary Care Provider Dr. Manda Castellon Referring Provider 1([facility])[phone] Attending Provider 1([facility])[phone] Dr. Manda Castellon Attending Provider 1([facility])[phone] [place] BARRON, VASCULAR ULTRASOUND TECHNOLOGIST-C Dereje Rueda Attending Provider 1([facility])[phone] Dr. Jasbir Rosenberg Attending Provider 1([facility])[phone] Manda Castellon Primary Care Provider Dr. Manda Castellon Attending Provider 1([facility])[phone] Dr. Manda Castellon Referring Provider 1([facility])[phone] Kera MOLINA, JESSE Carver Attending Provider 1([facility])[phone] Dr. Stiven Sierra Attending Provider 1([facility])[phone] Manda Castellon Primary Care Provider Dr. Manda Castellon Referring Provider JESSE Garsia Attending Provider Dr. Stiven Sierra Attending Provider Dr. Jessica Dale Attending Provider Cande GABRIEL, Dr. Holman Primary Care Provider Cande GABRIEL, Dr. Holman Attending Provider King HARVEY, Dr. Saleem Attending Provider King HARVEY, Dr. Saleem Referring Provider Cande GABRIEL, Dr. Holman Referring Provider Roof VASCULAR ULTRASOUND TECHNOLOGIST-C, Dereje H Attending Provider Roof VASCULAR ULTRASOUND TECHNOLOGIST-C, Dereje H Referring Provider Cande GABRIEL, Dr. Holman Primary Care Provider Suyapa GABRIEL, Dr. Lopez Attending Provider Suyapa GABRIEL, Dr. Lopez Referring Provider Cande GABRIEL, Dr. Holman Primary Care Provider Cande GABRIEL, Dr. Holman Attending Provider Cande GABRIEL, Dr. Holman Referring Provider Jessica Dale Attending Unavailable Cande, Manda Primary Care Unavailable Cande, Manda Referring Unavailable Cande, Manda Primary Care Unavailable Cande, Manda Attending Unavailable Cande, Manda Primary Care Unavailable CandeManda Attending Unavailable Cande, Manda Referring Unavailable Cande, Manda Primary Care Unavailable Stiven Sierra Attending Unavailable Jessica Dale Attending Unavailable Jessica Dale Referring Unavailable Cande, Manda Primary Care Unavailable Cande, Manda Primary Care Unavailable Cande, Manda Attending Unavailable Cande, Manda Referring Unavailable Cande, Manda Primary Care Unavailable Cande, Manda Attending Unavailable Cande, Manda Referring Unavailable Stiven Sierra Referring Unavailable Cande, Manda Primary Care Unavailable Stiven Sierra Attending Unavailable Stiven Sierra Referring Unavailable Manda Castellon Primary Care Unavailable Stiven Sierra Attending Unavailable Manda Castellon Primary Care Unavailable Roof VASCULAR ULTRASOUND TECHNOLOGISTDereje Attending Unavailable Roof VASCULAR ULTRASOUND TECHNOLOGIST, Dereje Rueda Referring Unavailable Allergies Allergy Classification Reported Allergen(s) Allergy Type Date of Onset Reaction(s) Facility (2 sources) Acetaminophen / Codeine Drug Allergy 5 Intolerance, GI Upset [facility] Work Phone: (2 sources) Alendronate Drug Allergy 8 Other: See Comments [facility] (2 sources) buPROPion Drug Allergy 5 Intolerance [facility] Work Phone: (12 sources) Ciprofloxacin Drug Allergy 4 Other: See Comments [facility] Comment on above: aches and pain (12 sources) Morphine Drug Allergy 5 GI Upset [facility] Work Phone: (2 sources) rosuvastatin Drug Allergy 5 Intolerance [facility] Work Phone: (10 sources) buPROPion Drug Allergy [address] [facility] (11 sources) Ciprofloxacin; Translations: [ciprofloxacin HCl] Drug Allergy [address] [facility] (10 sources) Codeine Drug Allergy [address] [facility] (10 sources) Lanolin Drug Allergy [address] [facility] (10 sources) rosuvastatin Drug Allergy [address] [facility] (10 sources) Opioids - Morphine Analogues Allergy to substance 2 Unknown, Vomiting [facility] (1 source) Seasonal allergy Allergy to substance [address] [facility] (7 sources) Seasonal Allergies: Uncoded; Translations: [Seasonal Allergies: Uncoded] Allergy to substance 4 NEEDS FOLLOW-UP [facility] (1 source) buPROPion Drug Allergy [address] [facility] Repository (1 source) Ciprofloxacin Drug Allergy [address] [facility] Repository (1 source) Codeine Drug Allergy 5 [facility] Repository (1 source) Lanolin Drug Allergy [address] [facility] Repository (1 source) Morphine Drug Allergy [address] [facility] Rep[facility] (1 source) rosuvastatin Drug Allergy [address] [facility] Rep[facility] (1 source) Opioids - Morphine Analogues Drug allergy (disorder) [address] [facility] Repository Medications Current Medications Medication Drug Class(es) Dates Sig (Normalized) Sig (Original) betamethasone 0.0005 mg/mg topical ointment (10 sources) Corticosteroid Start: 06-24-2021 Betamethasone Dipropionate 0.05 % ointment Active 1 NMA TOPICAL DAILY as needed for rash June 24, 2021 1:00am calcium citrate 1500 mg / cholecalciferol 250 unt oral tablet (10 sources) Vitamin D Start: 01-30-2019 Calcium Citrate-Vitamin D3 1 EACH tablet Active 1 NMA PO DAILY January 30, 2019 12:00am Start: 01-30-2019 Calcium Citrat e-Vitamin D3 Active 1 EACH PO DAILY January 30, 2019 12:00am cholecalciferol 0.025 mg oral capsule (12 sources) Vitamin D Start: 01-30-2019 take 1 capsule by mouth once daily Cholecalciferol (Vitamin D3) 1,000 UNIT capsule Active 1000 U PO DAILY January 30, 2019 12:00am Comment on above: Take 1,000 Units by mouth once daily. clobetasol propionate 0.0005 mg/mg topical ointment (20 sources) Corticosteroid Start: 08-16-2024 Clobetasol 0.05 % ointment Active 1 NMA TOPICAL AT BEDTIME 30 3 August 16, 2024 12:00am apply thin layer; massage gently into affected area nightly x 6 weeks then 1-2x weekly Start: 04-08-2020 Clobetasol 0.0 5 % solution Active 1 NMA TOPICAL ONCE as needed for itch April 08, 2020 1:00am Start: 04-08-2020 Clobetasol Act gillian 1 APPLIC TOPICAL ONCE April 08, 2020 1:00am Start: 02-15-2015 End: 04-08-2020 Clobetasol 1 APPLIC ointment Discontinued 1 NMA TOPICAL NEEDED as needed for PSORIASIS February 15, 2015 12:00am April 08, 2020 11:45am Start: 12-10-2013 Clobetasol Pro pionate 0.05 % external solution Indications: Psoriasis Apply to active spots of psoriasis or seborrheic dermatitis on scalp selectively once to twice per day until clear and then taper off or stop as able. AVOID face, eyes, eyelids, and deep fold areas. 60 mL 3 12/10/2013 Active Comment on above: Apply to active spot s of psoriasis or seborrheic dermatitis on scalp selectively once to twice per day until clear and then taper off or stop as able. AVOID face, eyes, eyelids, and deep fold areas. hydrocortisone 25 mg/ml topical cream (10 sources) Corticosteroid Start: 020 Hydrocortisone 2.5 % cream Active 1 NMA TOPICAL TWICE A DAY as needed for itching July 04, 2019 1:00am naproxen sodium 220 mg oral tablet (4 sources) Nonsteroidal Anti-inflammatory Drug Start: 025 take 1 tablet by mouth twice daily as needed Naproxen Sodium (Flanax (Naproxen)) 220 mg tablet Active 220 mg PO TWICE A DAY as needed December 19, 2024 12:00am naproxen sodium (ALEVE ORAL) Take by mouth. 0 Active Comment on above: Take by mouth. Turmeric extract (5 sources) Start: 08-01-2023 Turmeric 400 m g capsule Active mg PO August 01, 2023 12:00am Start: 08-01-2023 Turmeric Activ e MG PO August 01, 2023 12:00am Vitamin B Comp And C No.3 (B Complex Plus Vitamin C) 27-05-95-5-300 mg capsule (4 sources) Start: 10-09-2023 Vitamin B Comp And C No.3 (B Complex Plus Vitamin C) 09-00-22-5-300 mg capsule Active 1 NMA PO DAILY October 09, 2023 12:00am give with food (meal/snack) Completed/Discontinued Medications Medication Drug Class(es) Dates Sig (Normalized) Sig (Original) acetaminophen 325 mg / HYDROcodone bitartrate 5 mg oral tablet (10 sources) Opioid Agonist Start: 01-22-2017 End: 09-12-2017 Hydrocodone-Acetami nophen 1 TABLET tablet Discontinued 1 {tbl} PO EVERY 6 HOURS NEEDED as needed for Pain 20 0 January 22, 2017 12:00am September 12, 2017 9:23am Start: 01-22-2017 End: 09-12-2017 take 1 tablet by mouth every six hours as needed Hydrocodone-Acetaminophen Discontinued 1 TABLET PO EVERY 6 HOURS NEEDED January 22, 2017 12:00am September 12, 2017 9:23am alendronic acid 70 mg oral tablet (20 sources) Bisphosphonate Start: 12-23-2019 End: 06-24-2021 take 1 tablet by mouth every week Alendronate 70 mg tablet Discontinued 70 mg PO EVERY WEEK April 08, 2020 11:41am June 24, 2021 10:03am Start: 12-23-2019 End: 04-08-2020 take 1 mg by mouth every week Alendronate Discontinued MG PO EVERY WEEK December 23, 2019 12:00am April 08, 2020 11:46am Comment on above: Take 1 tablet by belen th one time a week. Take with a full glass of water, on an empty stomach; do NOT lie down for 30minutes. amoxicillin 500 mg oral tablet (4 sources) Penicillin-class Antibacterial Start: 4 End: 4 take 1 tablet by mouth three times daily Amoxicillin 500 mg tablet Discontinued 500 mg PO THREE TIMES A DAY 30 0 September 12, 2023 12:00am October 09, 2023 8:36am amoxicillin 875 mg / clavulanate 125 mg oral tablet (20 sources) Penicillin-class Antibacterial Start: 2 End: 2 take 1 tablet by mouth every twelve hours Amoxicillin-Pot Clavulanate 875-125 mg tablet Discontinued 875 mg PO Q12H 20 0 March 07, 2022 12:00am March 14, 2022 9:50am Start: 01-30-2019 End: 07-04-2019 take 1 tablet by mouth every twelve hours Amoxicillin-Pot Clavulanate 875 MG tablet Discontinued 875 mg PO Q12H 20 0 January 30, 2019 12:00am July 04, 2019 9:39am atorvastatin 20 mg oral tablet (20 sources) HMG-CoA Reductase Inhibitor Start: 01-22-2017 End: 09-19-2024 take 1 tablet by mouth at bedtime Atorvastatin 20 mg tablet Discontinued 20 mg PO AT BEDTIME 30 0 July 02, 2024 10:33am September 19, 2024 1:39pm Comment on above: Take 1 tablet by belen th once daily. benzonatate 200 mg oral capsule (10 sources) Non-narcotic Antitussive Start: 09-12-2023 End: 10-09-2023 take 1 capsule by mouth three times daily as needed for cough Benzonatate 200 mg capsule Discontinued 200 mg PO THREE TIMES A DAY as needed for cough 20 0 September 12, 2023 12:00am October 09, 2023 8:40am Start: 06-02-2023 End: 06-13-2023 take 1 capsule by mouth three times daily as needed for cough Benzonatate 200 mg capsule Discontinued 200 mg PO THREE TIMES A DAY as needed for cough 14 0 June 02, 2023 1:00am June 13, 2023 9:57am calcium citrate/vitamin D3 (CALCIUM CITRATE + D ORAL) (2 sources) calcium citrate/ vitamin D3 (CALCIUM CITRATE + D ORAL) Take by mouth. 0 Active Comment on above: Take by mouth. doxycycline hyclate 20 mg oral tablet (20 sources) Tetracycline- class Drug Start: End: take 1 tablet by mouth twice daily Doxycycline Hyclate 20 mg tablet Discontinued 20 mg PO TWICE A DAY October 09, 2023 12:00am August 16, 2024 9:30am Start: 06-24-2021 End: 06-13-2023 take 1 tablet by mouth twice daily Doxycycline Hyclate 20 mg tablet Discontinued 20 mg PO TWICE A DAY June 24, 2021 1:00am June 13, 2023 9:57am Start: 02-15-2015 End: 12-23-2019 take 2 tablets by mouth once daily Doxycycline Hyclate 20 MG tablet Discontinued 40 mg PO DAILY February 15, 2015 12:00am December 23, 2019 2:21pm Start: 02-15-2015 End: 12-23-2019 take 40 mg by mouth once daily Doxycycline Hyclate Dis continued 40 MG PO DAILY February 15, 2015 12:00am December 23, 2019 2:21pm Start: 10-21-2014 End: 12-10-2020 take 1 tablet by mouth twice daily Doxycycline Hyclate 20 mg tablet Discontinued 20 mg PO TWICE A DAY December 23, 2019 2:20pm December 10, 2020 9:02am Comment on above: Take 1 tablet by belen twice daily. Per Dr. Jeffery Connor (Derm) etodolac 500 mg oral tablet (7 sources) Nonsteroidal Anti-inflammatory Drug Start: 08-04-19 End: 09-27-19 take 1 tablet by mouth twice daily Etodolac 500 mg tablet Discontinued 500 mg PO TWICE A DAY 30 0 August 03, 2022 12:00am September 26, 2022 8:23am fluticasone propionate 0.05 mg/actuat metered dose nasal spray (2 sources) Corticosteroid Start: 12-09-19 take 2 spray(s) by mouth once daily fluticasone (FLONASE) 50 mcg/actuation nasal spray Indications: PND (post-nasal drip) Use 2 Sprays in each nostril once daily. Rinse mouth after use. 1 Bottle 11 12/09/2019 Active Comment on above: Use 2 Sprays in each nostril once daily. Rinse mouth after use. Ginkgo Biloba (10 sources) Start: 01-23-20 End: 10-24-19 Ginkgo Biloba 60 MG capsule Discontinued 60 mg PO January 22, 2017 12:00am October 23, 2017 9:39am Start: 01-22-2017 End: 10-23-2017 Ginkgo Biloba Discontinued 6 0 MG PO January 21, 2017 11:00pm October 23, 2017 8:39am Start: 01-22-2017 End: 10-23-2017 Ginkgo Biloba Discontinued 6 0 MG PO January 22, 2017 12:00am October 23, 2017 9:39am Nmyx-Ldqlxt-Kyeyfxwx-D3-C-Mn 500-400-667 mg-mg-unit capsule (4 sources) Start: 07-04-2019 End: 12-22-2021 Ktqb-Bqozoo-Uuoxjcus-D3-C-Mn 500-400-667 mg-mg-unit capsule Discontinued NMA PO July 04, 2019 1:00am December 22, 2021 8:51am glucosam/chond/collagen/hyal ur (JOINT SUPPORT ORAL) (2 sources) glucosam/chond/c ollagen/hyalur (JOINT SUPPORT ORAL) Take by mouth. 0 Active Comment on above: Take by mouth. glucosamine 500 oy-flnjlzppu-zxpchkhd comp 400 mg-D3 667 unit-C-Mn cap (6 sources) Start: 07-04-2019 End: 12-22-2021 glucosamine 500 vq-yhrwtwvaw-vxednlxv comp 400 mg-D3 667 unit-C-Mn cap Discontinued CAP PO July 04, 2019 12:00am December 22, 2021 7:51am Start: 07-04-2019 End: 12-22-2021 glucosamine 500 mg-chondroit -collagen comp 400 mg-D3 667 unit-C-Mn cap Discontinued CAP PO July 04, 2019 1:00am December 22, 2021 8:51am Ibuprofen (2 sources) Nonsteroidal Anti-inflammatory Drug IBUPROFEN ORAL Ta ke by mouth as needed. 0 Active Comment on above: Take by mouth as nee ded. ivermectin 10 mg/ml topical cream (19 sources) Antiparasitic, Pediculicide Start: 06-11-2020 End: 08-01-2023 Ivermectin 1 % cream Discontinued 1 NMA TOPICAL DAILY as needed July 21, 2022 11:26am August 01, 2023 8:54am ketoconazole 20 mg/ml medicated shampoo (2 sources) Azole Antifungal Start: 10-12-2013 ketoconazole (NIZORAL) 2 % shampoo Shampoo scalp (with 5-10min lather) qoday to qday (every other to every day) x 2-4 weeks and then can taper toward qwk as able when rash is better, as tolerated 120 mL 1 10/12/2013 Active Comment on above: Shampoo scalp (with 5-10min lather) qoday to qday (every other to every day) x 2-4 weeks and then can taper toward qwk as able when rash is better, as tolerated lactobacillus acidophilus [id number] unt oral capsule (10 sources) Start: 01-30-2019 End: 12-23-2019 Lactobacillus Acidophilus 1 EACH capsule Discontinued 1 NMA PO DAILY January 30, 2019 12:00am December 23, 2019 2:21pm Start: 01-30-2019 End: 12-23-2019 Lactobacillus Acidophilus Di scontinued 1 EACH PO DAILY January 30, 2019 12:00am December 23, 2019 2:21pm linseed oil 1000 mg oral capsule (10 sources) Start: 07-04-2019 End: 12-23-2019 take 1 capsule by mouth once daily Flaxseed Oil 1,000 mg capsule Discontinued 1000 mg PO DAILY July 04, 2019 1:00am December 23, 2019 2:20pm administer with a meal meloxicam 15 mg oral tablet (10 sources) Nonsteroidal Anti-inflammatory Drug Start: 01-13-2021 End: 06-24-2021 take 1 tablet by mouth once daily Meloxicam (Mobic) 15 mg tablet Discontinued 15 mg PO DAILY 30 January 13, 2021 12:00am June 24, 2021 10:04am methylPREDNISolone 4 mg oral tablet (6 sources) Corticosteroid Start: 06-02-2023 End: 06-13-2023 take 1 tablet by mouth once Methylprednisolone (Medrol (Geo)) 4 mg tablets,dose pack Discontinued 0 PO per package directions June 02, 2023 1:00am June 13, 2023 9:57am PO PER PKG DIR 24 hr metoprolol succinate 25 mg extended release oral tablet (20 sources) beta-Adrenergic Tomasz Start: 08-05-2021 End: 12-11-2023 take 2 tablets by mouth every twenty-fou r hours at bedtime Metoprolol Succinate 25 mg tablet extended release 24 hr Discontinued 12.5 mg PO AT BEDTIME 45 3 October 04, 2023 8:24am December 11, 2023 8:48am Start: 08-05-2021 End: 08-17-2022 take 12.5 mg by mouth at bedtime Metoprolol Succinate Active 12.5 MG PO AT BEDTIME 45 August 17, 2022 10:38am Start: 10-13-2020 End: 10-13-2020 take 0.5 tablet by mouth twice daily Metoprolol Tartrate Discontinued 12.5 MG PO TWICE A DAY October 13, 2020 9:46am October 13, 2020 10:01am 1/2 tab bid Start: 10-13-2020 End: 10-13-2020 take 0.5 tablet by mouth twice daily Metoprolol Tartrate 25 mg tablet Discontinued 12.5 mg PO TWICE A DAY October 13, 2020 9:46am October 13, 2020 10:01am 1/2 tab bid Start: 02-26-2020 End: 10-13-2020 take 1 tablet by mouth twice daily Metoprolol Tartrate 25 mg tablet Discontinued 25 mg PO TWICE A DAY 60 February 26, 2020 12:00am October 13, 2020 9:26am metroNIDAZOLE 7.5 mg/ml topical cream (12 sources) Nitroimidazole Antimicrobial Start: 05-22-2015 metroNIDAZOLE 0.75 % cream Insert 1 applicator at bedtime to face 0 05/22/2015 Active Start: 02-15-2015 End: 07-06-2020 Metronidazole 45 GM cream Di scontinued 45 g TOPICAL NEEDED as needed for ROSACIA February 15, 2015 12:00am July 06, 2020 12:08pm Comment on above: Insert 1 applicator at bedtime to face MULTI-VITAMIN ORAL (2 sources) MULTI-VITAMIN OR AL Take by mouth. 0 Active Comment on above: Take by mouth. Xghkswpf-Lxi-Gsmg-Fa- Lutein (3 sources) Start: 02-15-2015 End: 07-04-2019 Wowjkdyz-Toq-Vbgk-Fa-Lute in Discontinued 1 EACH PO DAILY February 15, 2015 12:00am July 04, 2019 9:41am Qmezmobf-Vla-Cows-Fa- Vit K-Lut (3 sources) Start: 02-15-2015 End: 07-04-2019 Ydwekoct-Hga-Fhyj-Fa-Vit K-Lut Discontinued 1 EACH PO DAILY February 14, 2015 11:00pm July 04, 2019 8:41am Start: 02-15-2015 End: 07-04-2019 Ihmombtn-Tim-Nmsl-Fa-Vit K-L ut Discontinued 1 EACH PO DAILY February 15, 2015 12:00am July 04, 2019 9:41am Czdgfkes-Ewe-Dlvc-Fa-Vit K-Lut 1 EACH tablet (4 sources) Start: 02-15-2015 End: 07-04-2019 take 1 tablet by mouth once daily Oapwvhxk-Vzw-Jcfv-Fa-Vit K-Lut 1 EACH tablet Discontinued 1 NMA PO DAILY February 15, 2015 12:00am July 04, 2019 9:41am multivit-min/iron/folic/lute in (CENTRUM SILVER WOMEN ORAL) (2 sources) multivit-min/iro n/folic/lut ein (CENTRUM SILVER WOMEN ORAL) Take by mouth. 0 Active Comment on above: Take by mouth. Multivitamin,Tx-Minerals tablet (4 sources) Start: 10-09-2023 End: 12-11-2023 Multivitamin,Tx-Minerals tablet Discontinued 1 {tbl} PO DAILY October 09, 2023 12:00am December 11, 2023 8:49am [place]-3 Fatty Acids-Fish Oil (6 sources) Start: 02-15-2015 End: 09-12-2017 [place]-3 Fatty Acids-Fish Oil Discontinued 1 EACH PO DAILY February 14, 2015 11:00pm September 12, 2017 8:34am Start: 02-15-2015 End: 09-12-2017 [place]-3 Fatty Acids-Fish Oil Discontinued 1 EACH PO DAILY February 15, 2015 12:00am September 12, 2017 9:34am [place]-3 Fatty Acids-Fish Oil 1 EACH capsule (4 sources) Start: 02-15-2015 End: 09-12-2017 [place]-3 Fatty Acids-Fish Oil 1 EACH capsule Discontinued 1 NMA PO DAILY February 15, 2015 12:00am September 12, 2017 9:34am OTC PRODUCT (4 sources) Start: 10-23-2009 OTC PRODUCT Om ega 3: Take one tablet daily, 1000mg. 0 10/23/2009 Active OTC PRODUCT Comment on above: [place] 3: Take one ta blet daily, 1000mg. PARoxetine hydrochloride 10 mg oral tablet (10 sources) Serotonin Reuptake Inhibitor Start: 1 End: 1 take 1 tablet by mouth once daily Paroxetine Hcl (Paxil) 10 mg tablet Discontinued 10 mg PO DAILY 30 July 06, 2020 1:00am October 13, 2020 9:26am Risankizumab-Rzaa (5 sources) Start: 4 End: 4 Risankizumab-Rzaa (Skyrizi) 150 mg/mL pen injector Discontinued 150 mg SC every 12 weeks August 01, 2023 12:00am December 11, 2023 8:48am Start: 08-01-2023 Risankizumab-R zaa (Skyrizi) 150 mg/mL pen injector Active 150 MG SC every 12 weeks August 01, 2023 12:00am triamcinolone acetonide 40 mg/ml injectable suspension (10 sources) Corticosteroid Start: 09-12-2017 End: 10-23-2017 Triamcinolone Acetonide (Kenalog) 40 mg/mL suspension Discontinued 40 mg INFILT ONCE September 12, 2017 12:00am October 23, 2017 9:40am Start: 09-12-2017 End: 10-23-2017 Triamcinolone Acetonide (Sony alog) 40 mg/mL suspension Discontinued 40 MG INFILT ONCE September 12, 2017 12:00am October 23, 2017 9:40am Turmeric-Turmeric Ext-Pepper (6 sources) Start: 01-22-2017 End: 10-23-2017 Turmeric-Turmeric Ext-Pepper Discontinued 1 EACH PO DAILY January 21, 2017 11:00pm October 23, 2017 8:40am Start: 01-22-2017 End: 10-23-2017 Turmeric-Turmeric Ext-Pepper Discontinued 1 EACH PO DAILY January 22, 2017 12:00am October 23, 2017 9:40am Turmeric-Turmeric Ext-Pepper 1 EACH capsule (4 sources) Start: 01-22-2017 End: 10-23-2017 take 1 capsule by mouth once daily Turmeric-Turmeric Ext-Pepper 1 EACH capsule Discontinued 1 NMA PO DAILY January 22, 2017 12:00am October 23, 2017 9:40am Vitamin B Complex (8 sources) Start: 06-18-2018 take 1 tablet by mouth once daily vitamin b complex (B COMPLETE) tab Take 1 tablet by mouth once daily. 0 06/18/2018 Active Start: 01-22-2017 Vitamin B Comp nikita Active 1 EACH PO DAILY January 21, 2017 11:00pm Start: 01-22-2017 Vitamin B Comp nikita Active 1 EACH PO DAILY January 22, 2017 12:00am Comment on above: Take 1 tablet by belen th once daily. Vitamin B Complex 1 EACH capsule (4 sources) Start: 7 End: 4 Vitamin B Complex 1 EACH capsule Discontinued 1 NMA PO DAILY January 22, 2017 12:00am October 09, 2023 8:38am Zinc (2 sources) Start: 9 take 1 tablet by mouth once daily Zinc 50 mg tab Take 1 tablet by mouth once daily. 0 06/18/2018 Active Comment on above: Take 1 tablet by belen th once daily. 100 ml zoledronic acid 0.05 mg/ml injection (20 sources) Bisphosphonate Start: 2 End: 5 Zoledronic Rsnv-Tkmnsoil-Ztwfr 5 mg/100 mL piggyback Discontinued 1 NMA .Route ONCE 100 0 July 19, 2022 10:58am June 13, 2023 10:09am yearly infuse over 20 minutes. Problems Active Problems Problem Classification Problem Date Documented Da te Episodic/Chronic Abdominal hernia (10 sources) Diaphragmatic hernia; Translations: [Diaphragmatic hernia without obstruction or gangrene] 01-27-2020 Episodic Calculus of urinary tract (12 sources) History of calculus of kidney; Translations: [Personal history of urinary calculi] Onset: 6 05-22-2015 Episodic Cardiac dysrhythmias (20 sources) Multiple premature ventricular complexes; Translations: [Ventricular premature depolarization] 02-26-2020 Chronic Cardiac dysrhythmias (11 sources) Palpitations; Translations: [Palpitations] Episodic Cataract (10 sources) Bilateral cataracts; Translations: [Unspecified cataract] 01-27-2020 Chronic Diseases of mouth; excluding dental (10 sources) Disorder of uvula of palate; Translations: [Other lesions of oral mucosa] 01-27-2020 Episodic Comment on above: Uvula removed Disorders of lipid metabolism (18 sources) Mixed hyperlipidemia; Translations: [Mixed hyperlipidemia] Onset: 5 08-19-2015 Chronic Diverticulosis and diverticulitis (20 sources) Diverticular disease; Translations: [Diverticulosis of intestine, part unspecified, without perforation or abscess without bleeding] 01-27-2020 Chronic Esophageal disorders (13 sources) Gastroesophageal reflux disease; Translations: [Gastro-esophageal reflux disease without esophagitis] Onset: 5 Chronic Genitourinary symptoms and ill-defined conditions (2 sources) Female stress incontinence; Translations: [Stress incontinence (female) (male)] Onset: 0 09-07-2009 Chronic Immunity disorders (6 sources) Immunosuppression; Translations: [Immunodeficiency, unspecified] 08-01-2023 Chronic Comment on above: annual paps Malaise and fatigue (12 sources) Fatigue; Translations: [Other fatigue] 05-18-2022 Episodic Menopausal disorders (2 sources) Postmenopausal bleeding; Translations: [Postmenopausal bleeding] Onset: 0 06-23-2016 Chronic Mood disorders (10 sources) Depressive disorder; Translations: [Depression] 07-06-2020 Chronic Comment on above: counseling, paxil en couraged. grief reaction. Nonspecific chest pain (4 sources) Atypical chest pain; Translations: [Other chest pain] Onset: 5 12-19-2024 Episodic Nutritional deficiencies (13 sources) Vitamin D deficiency; Translations: [Vitamin D deficiency, unspecified] Onset: 5 12-24-2020 Chronic Osteoarthritis (20 sources) Osteoarthritis of left knee joint; Translations: [Unilateral primary osteoarthritis, left knee] 11-30-2022 Chronic Osteoporosis (20 sources) Osteoporosis; Translations: [Age-related osteoporosis without current pathological fracture] Onset: 5 Chronic Other congenital anomalies (4 sources) Herniated urinary bladder 01-27-2020 Chronic Other connective tissue disease (7 sources) Trochanteric bursitis; Translations: [Trochanteric bursitis, left hip] 08-03-2022 Episodic Other connective tissue disease (7 sources) Iliotibial band friction syndrome; Translations: [Iliotibial band syndrome, unspecified leg] 08-03-2022 Episodic Other connective tissue disease (3 sources) Pain in left arm; Translations: [Pain in left arm] 12-19-2024 Episodic Other connective tissue disease (1 source) Pain in left arm; Translations: [Pain in left arm] Onset: 5 Episodic Other gastrointestinal disorders (10 sources) Irritable bowel syndrome; Translations: [Irritable bowel syndrome without diarrhea] 01-27-2020 Chronic Other inflammatory condition of skin (12 sources) Psoriasis; Translations: [Psoriasis, unspecified] Onset: 1 06-27-2010 Chronic Other inflammatory condition of skin (2 sources) Rosacea; Translations: [Rosacea, unspecified] Onset: 2 12-27-2016 Chronic Other inflammatory condition of skin (2 sources) Psoriasis, unspecified; Translations: [Other psoriasis] 09-26-2022 Chronic Other nervous system disorders (10 sources) H/O: ear disorder; Translations: [Personal history of other diseases of the nervous system and sense organs] 10-13-2020 Episodic Other non-epithelial cancer of skin (4 sources) Basal cell carcinoma of skin; Translations: [Basal cell carcinoma of skin, unspecified] 12-11-2023 Episodic Other non-traumatic joint disorders (20 sources) Pain in left knee; Translations: [Mechanical pain of left knee] Episodic Other non-traumatic joint disorders (7 sources) Hip pain; Translations: [Pain in left hip] 08-03-2022 Episodic Other nutritional; endocrine; and metabolic disorders (14 sources) Obesity; Translations: [Obesity, unspecified] 01-27-2020 Chronic Other nutritional; endocrine; and metabolic disorders (2 sources) Obesity, unspecified; Translations: [Obesity, unspecified] 09-26-2022 Chronic Other nutritional; endocrine; and metabolic disorders (1 source) Other obesity due to excess calories; Translations: [Other obesity due to excess calories] Onset: 5 Chronic Other nutritional; endocrine; and metabolic disorders (1 source) Body mass index (BMI) 37.0-37.9, adult; Translations: [Body mass index [BMI] 37.0-37.9, adult] Onset: 5 Chronic Other screening for suspected conditions (not mental disorders or infectious disease) (9 sources) Patient encounter status; Translations: [Encounter for screening mammogram for malignant neoplasm of breast] Onset: 5 Episodic Other skin disorders (11 sources) Lichen sclerosus et atrophicus; Translations: [Lichen sclerosus et atrophicus] Onset: 5 01-27-2020 Chronic Comment on above: clobetasol Other skin disorders (10 sources) Hirsutism; Translations: [Hirsutism] 01-27-2020 Episodic Other skin disorders (10 sources) H/O: psoriasis; Translations: [Personal history of diseases of the skin and subcutaneous tissue] 01-27-2020 Episodic Prolapse of female genital organs (5 sources) Disorder of rectum; Translations: [Rectocele] Onset: 6 03-17-2016 Chronic Comment on above: discussed pessary if desired Residual codes; unclassified (11 sources) Obstructive sleep apnea syndrome; Translations: [Obstructive sleep apnea (adult) (pediatric)] 01-27-2020 Chronic Residual codes; unclassified (1 source) Obstructive sleep apnea (adult) (pediatric); Translations: [Obstructive sleep apnea (adult) (pediatric)] Onset: 5 Chronic Spondylosis; intervertebral disc disorders; other back problems (19 sources) Degeneration of lumbar intervertebral disc; Translations: [Other intervertebral disc degeneration, lumbar region] 08-03-2022 Chronic Spondylosis; intervertebral disc disorders; other back problems (9 sources) Low back pain; Translations: [Low back pain] 08-03-2022 Episodic Superficial injury; contusion (8 sources) Contusion of hand; Translations: [Contusion of unspecified hand, initial encounter] 09-26-2022 Episodic Thyroid disorders (2 sources) Non-toxic nodular goiter; Translations: [Nontoxic goiter, unspecified] Onset: 03-17-2016 Chronic Unclassified (6 sources) Herniated urinary bladder; Translations: [Cystocele] 01-27-2020 Unclassified (1 source) Obesity, class 2; Translations: [Obesity, class 2] Onset: Past or Other Problems Problem Classification Problem Date Documented Da te Episodic/Chronic Conditions associated with dizziness or vertigo (2 sources) Benign paroxysmal positional vertigo; Translations: [Benign paroxysmal vertigo, unspecified ear] Onset: 11-19-2015 11-19-2015 Episodic Genitourinary symptoms and ill-defined conditions (5 sources) Dysuria; Translations: [Dysuria] Onset: 06-13-2024 06-13-2024 Episodic Other bone disease and musculoskeletal deformities (2 sources) Osteopenia; Translations: [Other specified disorders of bone density and structure, unspecified site] Onset: 05-04-2009 05-03-2021 Episodic Residual codes; unclassified (2 sources) Other specified personal risk factors, not elsewhere classified; Translations: [Routine gynecological examination] Onset: 08-16-2024 08-01-2023 Episodic Results Test Name Value Interpretation Reference Range Facility Absolute lymphocyte countOrd ered By: Manda Castellon on 12-19-2024 Lymphocytes Auto (Unsp spec) [#/Vol] 2.41 10*3/uL 0.83-4.[address] [facility] Absolute neutrophil countOrd ered By: Manda Castellon on 12-19-2024 Neutrophils (Bld) [#/Vol] 5.8 10*3/uL 2.0-7.[address] [facility] Anion gap in Serum or Plasma Ordered By: Manda Castellon on 12-19-2024 Anion gap [Moles/Vol] 12 mmol/L 5-15 [facility] Automated lymphocyte count a s percentage of total leukocytesOrdered By: Manda Castellon on 12-19-2024 Lymphocytes/100 WBC Auto (Unsp spec) 26.0 % - [facility] BUN/creatinine ratioOrdered By: Manda Castellon on 12-19-2024 Urea nitrogen/Creatinine [Mass ratio] 13.0 mg/mg 10- [facility] Basophil percentageOrdered B y: Manda Castellon on 12-19-2024 Basophils/100 WBC (Bld) 0.6 % 0-1 [facility] Bilirubin, totalOrdered By: Manda Castellon on 12-19-2024 Bilirubin [Mass/Vol] 0.96 mg/dL 0.00-1.[address] [facility] CBC W/Diff, Automatedon 12-06 Absolute Lymph 2.41 X10 3/uL Normal 0.83-4.[address] [facility] Comment on above: Performed By: #### L 500.4050, L501.5200, L500.4100, L506.1001, L100.0100, L501.9520 #### [facility] [address] [place], [address] Absolute Neut 5.8 X10 3/uL Normal 2.0-7.[address] [facility] Comment on above: Performed By: #### L 500.4050, L501.5200, L500.4100, L506.1001, L100.0100, L501.9520 #### [facility] [address] [place], [address] Basophils/100 WBC (Bld) 0.6 % Normal 0-1 [facility] Comment on above: Performed By: #### L 500.4050, L501.5200, L500.4100, L506.1001, L100.0100, L501.9520 #### [facility] [address] [place], [address] Eosinophils/100 WBC (Bld) 1.9 % Normal 0-[address] [facility] Comment on above: Performed By: #### L 500.4050, L501.5200, L500.4100, L506.1001, L100.0100, L501.9520 #### [facility] [address] [place], [address] Erythrocyte distribution width (RBC) [Ratio] 13.9 % Normal 11.6-14.[address] [facility] Comment on above: Performed By: #### L 500.4050, L501.5200, L500.4100, L506.1001, L100.0100, L501.9520 #### [facility] [address] [place], [address] Hematocrit (Bld) [Volume fraction] 47.4 % High 37-[address] [facility] Comment on above: Performed By: #### L 500.4050, L501.5200, L500.4100, L506.1001, L100.0100, L501.9520 #### [facility] [address] [place], [address] Hemoglobin (Bld) [Mass/Vol] 15.7 g/dL High 12.0-15.[address] [facility] Comment on above: Performed By: #### L 500.4050, L501.5200, L500.4100, L506.1001, L100.0100, L501.9520 #### [facility] [address] [place], [address] IG% 0.500 Normal 0.0-0.[address] [facility] Comment on above: Result Comment: IG% - Immature Granulocytes (promyelocytes, myelocytes and metamyelocytes) > 1% indicates that a LEFT SHIFT is Present. Performed By: #### L 500.4050, L501.5200, L500.4100, L506.1001, L100.0100, L501.9520 #### [facility] [address] [place], [address] Lymphocytes/100 WBC (Bld) 26.0 % Normal 19-[address] [facility] Comment on above: Performed By: #### L 500.4050, L501.5200, L500.4100, L506.1001, L100.0100, L501.9520 #### [facility] [address] [place], [address] MCH (RBC) [Entitic mass] 27.6 pg Normal 27.0-32.[address] [facility] Comment on above: Performed By: #### L 500.4050, L501.5200, L500.4100, L506.1001, L100.0100, L501.9520 #### [facility] [address] [place], [address] MCHC (RBC) [Mass/Vol] 33.1 g/dL Normal 32-36 [facility] Comment on above: Performed By: #### L 500.4050, L501.5200, L500.4100, L506.1001, L100.0100, L501.9520 #### [facility] [address] [place], [address] MCV (RBC) [Entitic vol] 83.3 fL Normal 81-99 [facility] Comment on above: Performed By: #### L 500.4050, L501.5200, L500.4100, L506.1001, L100.0100, L501.9520 #### [facility] [address] [place], [address] Monocytes/100 WBC (Bld) 7.8 % Normal 0-10 [facility] Comment on above: Performed By: #### L 500.4050, L501.5200, L500.4100, L506.1001, L100.0100, L501.9520 #### [facility] [address] [place], [address] Neutrophils/100 WBC (Bld) 63.2 % Normal 47-[address] [facility] Comment on above: Performed By: #### L 500.4050, L501.5200, L500.4100, L506.1001, L100.0100, L501.9520 #### [facility] [address] [place], [address] Nucleated RBC (Bld) [#/Vol] 0 10*3/uL Normal 0-[address] [facility] Comment on above: Performed By: #### L 500.4050, L501.5200, L500.4100, L506.1001, L100.0100, L501.9520 #### [facility] [address] [place], [address] Platelet mean volume (Bld) [Entitic vol] 9.7 fL Normal 6.2-12.[address] [facility] Comment on above: Performed By: #### L 500.4050, L501.5200, L500.4100, L506.1001, L100.0100, L501.9520 #### [facility] [address] [place], [address] Platelets (Bld) [#/Vol] 289 10*3/uL Normal 150-[address] [facility] Comment on above: Performed By: #### L 500.4050, L501.5200, L500.4100, L506.1001, L100.0100, L501.9520 #### [facility] [address] [place], [address] RBC (Bld) [#/Vol] 5.69 10*6/uL High 4.2-5.4 [facility] Comment on above: Performed By: #### L 500.4050, L501.5200, L500.4100, L506.1001, L100.0100, L501.9520 #### [facility] [address] [place], [address] RDW SD 42.5 fl Normal 35.1-43.[address] [facility] Comment on above: Performed By: #### L 500.4050, L501.5200, L500.4100, L506.1001, L100.0100, L501.9520 #### [facility] [address] [place], [address] WBC (Bld) [#/Vol] 9.3 10*3/uL Normal 4.4-11.0 [facility] Comment on above: Performed By: #### L 500.4050, L501.5200, L500.4100, L506.1001, L100.0100, L501.9520 #### [facility] [address] [place], [address] Calculated very low density lipoprotein (VLDL) cholesterol measurementOrdered By: Manda Castellon on 12-19-2024 Calculated very low density lipoprotein (VLDL) cholesterol measurement 17 mg/dL 5-[address] [facility] Carbon dioxide, total [Moles /volume] in Central venous bloodOrdered By: Manda Castellon on 12-19-2024 CO2 [Moles/Vol] 24.0 mmol/L 21.0-32.[address] [facility] Chloride assayOrdered By: Mercedes Castellon on 12-19-2024 Chloride [Moles/Vol] 105 mmol/L 98-[address] [facility] Comprehensive Metabolic Prof ilon 12-19-2024 Albumin [Mass/Vol] 4.1 g/dL Normal 3.4-4.8 [facility] Comment on above: Performed By: #### L 500.4050, L501.5200, L500.4100, L506.1001, L100.0100, L501.9520 #### [facility] [address] [place], [address] Albumin/Globulin [Mass ratio] 1.4 {ratio} Normal 0.9-2.[address] [facility] Comment on above: Performed By: #### L 500.4050, L501.5200, L500.4100, L506.1001, L100.0100, L501.9520 #### [facility] [address] [place], [address] ALK PHOS 96 U/L Normal 35-[address] [facility] Comment on above: Performed By: #### L 500.4050, L501.5200, L500.4100, L506.1001, L100.0100, L501.9520 #### [facility] [address] [place], [address] ALT [Catalytic activity/Vol] 25 U/L Normal <=[address] [facility] Comment on above: Performed By: #### L 500.4050, L501.5200, L500.4100, L506.1001, L100.0100, L501.9520 #### [facility] [address] [place], [address] AST [Catalytic activity/Vol] 29 U/L Normal <=[address] [facility] Comment on above: Performed By: #### L 500.4050, L501.5200, L500.4100, L506.1001, L100.0100, L501.9520 #### [facility] [address] [place], [address] Bilirubin [Mass/Vol] 0.96 mg/dL Normal 0.00-1.[address] [facility] Comment on above: Performed By: #### L 500.4050, L501.5200, L500.4100, L506.1001, L100.0100, L501.9520 #### [facility] [address] [place], [address] BUN/CRE 13.0 RATIO Normal 10-[address] [facility] Comment on above: Performed By: #### L 500.4050, L501.5200, L500.4100, L506.1001, L100.0100, L501.9520 #### [facility] [address] [place], [address] Calcium [Mass/Vol] 9.8 mg/dL Normal 7.6-11.0 [facility] Comment on above: Performed By: #### L 500.4050, L501.5200, L500.4100, L506.1001, L100.0100, L501.9520 #### [facility] [address] [place], [address] Chloride [Moles/Vol] 105 mmol/L Normal 98-[address] [facility] Comment on above: Performed By: #### L 500.4050, L501.5200, L500.4100, L506.1001, L100.0100, L501.9520 #### [facility] [address] [place], [address] CO2 [Moles/Vol] 24.0 mmol/L Normal 21.0-32.[address] [facility] Comment on above: Performed By: #### L 500.4050, L501.5200, L500.4100, L506.1001, L100.0100, L501.9520 #### [facility] [address] [place], [address] Creatinine [Mass/Vol] 0.81 mg/dL Normal 0.70-1.20 [facility] Comment on above: Performed By: #### L 500.4050, L501.5200, L500.4100, L506.1001, L100.0100, L501.9520 #### [facility] [address] [place], [address] GAP 12 Normal 5-[address] [facility] Comment on above: Performed By: #### L 500.4050, L501.5200, L500.4100, L506.1001, L100.0100, L501.9520 #### [facility] [address] [place], [address] GFR/1.73 sq M.predicted among non-blacks MDRD (S/P/Bld) [Vol rate/Area] 77 mL/min/{1.73_m2} Normal >[address] [facility] Comment on above: Result Comment: mL/m in/1.73m2 CKD-EPI Creatinine Equation (2020) Performed By: #### L 500.4050, L501.5200, L500.4100, L506.1001, L100.0100, L501.9520 #### [facility] [address] [place], [address] Globulin (S) [Mass/Vol] 3.0 g/dL Normal 2.2-4.2 [facility] Comment on above: Performed By: #### L 500.4050, L501.5200, L500.4100, L506.1001, L100.0100, L501.9520 #### [facility] [address] [place], [address] Glucose [Mass/Vol] 96 mg/dL Normal 70-99 [facility] Comment on above: Performed By: #### L 500.4050, L501.5200, L500.4100, L506.1001, L100.0100, L501.9520 #### [facility] [address] [place], [address] Potassium [Moles/Vol] 4.1 mmol/L Normal 3.3-5.1 [facility] Comment on above: Performed By: #### L 500.4050, L501.5200, L500.4100, L506.1001, L100.0100, L501.9520 #### [facility] [address] [place], [address] Sodium [Moles/Vol] 141 mmol/L Normal 133-145 [facility] Comment on above: Performed By: #### L 500.4050, L501.5200, L500.4100, L506.1001, L100.0100, L501.9520 #### [facility] [address] [place], [place], [id number] T PROT 7.1 g/dL Normal 5.9-8.[address] [facility] Comment on above: Performed By: #### L 500.4050, L501.5200, L500.4100, L506.1001, L100.0100, L501.9520 #### [facility] [address] [place], [place], [address] Urea nitrogen [Mass/Vol] 11 mg/dL Normal 4-[address] [facility] Comment on above: Performed By: #### L 500.4050, L501.5200, L500.4100, L506.1001, L100.0100, L501.9520 #### [facility] [address] [place], [place], [address] Eosinophil percentageOrdered By: Manda Castellon on 12-19-2024 Eosinophils/100 WBC (Bld) 1.9 % 0-[address] [facility] Erythrocyte distribution wid th ratioOrdered By: Manda Castellon on 12-19-2024 Erythrocyte distribution width (RBC) [Ratio] 13.9 % 11.6-14.[address] [facility] Erythrocyte distribution wid th standard deviationOrdered By: Manda Castellon on 12-19-2024 Erythrocyte distribution width (RBC) [Ratio] 42.5 fl 35.1-43.[address] [facility] Glomerular filtration rate ( GFR) estimation/1.73 sq m using serum, plasma, or whole bOrdered By: Manda Castellon on 12-19-2024 GFR/1.73 sq M.predicted among non-blacks MDRD (S/P/Bld) [Vol rate/Area] 77 mL/min/{1.73_m2} >[address] [facility] Comment on above: mL/min/1.73m2 CKD-EP I Creatinine Equation (2020) Hematocrit Auto (Bld) [Volum e fraction]Ordered By: Manda Castellon on 12-19-2024 Hematocrit (Bld) [Volume fraction] 47.4 % High 37-[address] [facility] Hemoglobin measurementOrdere d By: Manda Castellon on 12-19-2024 Hemoglobin (Bld) [Mass/Vol] 15.7 g/dL High 12.0-15.[address] [facility] Immature granulocytes/100 WB C Auto (Bld)Ordered By: Manda Castellon on 12-19-2024 Immature granulocytes/100 WBC (Bld) 0.500 % 0.0-0.[address] [facility] Comment on above: IG% - Immature Granu locytes (promyelocytes, myelocytes and metamyelocytes) > 1% indicates that a LEFT SHIFT is Present. LDL calc ser/plasOrdered By: Manda Castellon on 12-19-2024 Cholesterol in LDL [Mass/Vol] 83 mg/dL [facility] Comment on above: Towfltrtbf=397-688 m g/dL & Higher Tsci=115 mg/dL or greaterFriedwald Equation for LDL-C Laboratory - Chemistry and C hemistry - challengeOrdered By: Manda Castellon on 12-19-2024 AST [Catalytic activity/Vol] 29 U/L <[address] [facility] Lipid Profileon 12-19-2024 CHOL:HDL 3.[address] [facility] Comment on above: Performed By: #### L 500.4050, L501.5200, L500.4100, L506.1001, L100.0100, L501.9520 #### [facility] [address] [place], [address] Cholesterol [Mass/Vol] 148 mg/dL Normal <=200 [facility] Comment on above: Result Comment: Chol esterol level, Desirable <200 mg/dL Borderline high cholesterol 200-239 mg/dL High cholesterol >=240 mg/dL Recommendations of the NCEP Adult Treatment Panel for the following risk-cutoff thresholds for the [place] population. Performed By: #### L 500.4050, L501.5200, L500.4100, L506.1001, L100.0100, L501.9520 #### [facility] [address] [place], [address] Cholesterol in HDL [Mass/Vol] 48 mg/dL Normal [facility] Comment on above: Result Comment: Neeta onal Cholesterol Education Program (NCEP) guidelines: <40 mg/dL: Low HDL-cholesterol (major risk factor for CHD) >= 60 mg/dL: High HDL-cholesterol (negative risk factor for CHD) HDL-cholesterol is affected by a number of factors, e.g. smoking, exercise, hormones, sex and age. Performed By: #### L 500.4050, L501.5200, L500.4100, L506.1001, L100.0100, L501.9520 #### [facility] [address] [place], [address] Cholesterol in LDL [Mass/Vol] 83 mg/dL Normal [facility] Comment on above: Result Comment: Bord osvjfj=366-009 mg/dL Higher Wuox=871 mg/dL or greater Friedwald Equation for LDL-C Performed By: #### L 500.4050, L501.5200, L500.4100, L506.1001, L100.0100, L501.9520 #### [facility] [address] [place], [address] Cholesterol in VLDL [Mass/Vol] 17 mg/dL Normal 5-[address] [facility] Comment on above: Performed By: #### L 500.4050, L501.5200, L500.4100, L506.1001, L100.0100, L501.9520 #### [facility] [address] [place], [address] Triglyceride [Mass/Vol] 87 mg/dL Normal [facility] Comment on above: Result Comment: The drugs N-Acetylcysteine and Metamizole may falsely depress this assay. Normal range: <150 mg/dL Borderline High: 150-199 mg/dL High: 200-499 mg/dL Very High: >500 mg/dL Performed By: #### L 500.4050, L501.5200, L500.4100, L506.1001, L100.0100, L501.9520 #### [facility] [address] [place], [address] MCV (mean corpuscular volume ) determinationOrdered By: Manda Castellon on 12-19-2024 MCV (RBC) [Entitic vol] 83.3 fL 81-99 [facility] MR/BMS.[facility] 12-19-2024 MR/BMS.[facility] [address] [place] [address] OFFICE VISIT Date of Service: 12/19/24 MR#: [id number] Acct: [id number] Name: TONNY HILLIARD Rep #: [id number] 2 : 1950 Provider: Dr. 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 Required: No Accompanied by: Self Is patient in pain?: No Allergies bupropion (From Wellbutrin) Allergy (Intermediate, Verified 12/19/24 07:57) Unknown codeine (From Tylenol-Codeine) Allergy (Intermediate, Verified 12/19/24 07:57) Unknown Opioids - Morphine Analogues Allergy (Intermediate, Verified 12/19/24 07:57) Vomiting rosuvastatin Allergy (Intermediate, Verified 12/19/24 07:57) Unknown Seasonal Allergies: Uncoded Allergy (Mild, Verified 12/19/24 07:57) NEEDS FOLLOW-UP ciprofloxacin (From Cipro) Allergy (Verified 12/19/24 07:57) Other ciprofloxacin HCl (From Cipro) Allergy (Verified 12/19/24 07:57) Other lanolin Adverse Reaction (Verified 12/19/24 07:57) Rash morphine Adverse Reaction (Verified 12/19/24 07:57) Vomiting Medications ???Medication ???Instructions ???Recorded ???Confirmed ???Type calcium 315 mg (as 1 ea PO DAILY 01/30/19 12/19/24 Hi story citrate)-vitamin D3 6.25 mcg (250 unit) tablet cholecalciferol (vitamin D3) 25 1,000 unit PO DAILY 01/30/1912/19 History mcg (1,000 unit) capsule hydrocortisone 2.5 % topical cream 1 applic topical BID PRN itching 07/04/19 12/19/24 History clobetasol 0.05 % scalp solution 1 applic topical ONCE PRN itch 06/2712/19/24 History betamethasone dipropionate 0.05 % 1 applic topical DAILY PRN rash 0 06/24/21 12/19/24 History topical ointment turmeric 400 mg capsule mg PO 08/01/23 12/19/24 History vitamin B comp and C no.3 15 mg-10 1 cap PO DAILY 10/09/23 12/19/24 History mg-50 mg-5 mg-300 mg capsule (B Complex Plus Vitamin C) clobetasol 0.05 % topical ointment 1 applic topical QHS #30 grams 0 08/16/24 12/19/24 Rx atorvastatin 20 mg tablet 20 mg PO QHS #90 tabs 09/19/24 Rx naproxen sodium 220 mg tablet 220 mg PO BID PRN 12/19/24 5 History (Flanax (naproxen)) Have you fallen in the past year?: No [facility] Medical History (Updated 12/19/24 @ 09:[address] Manda Castellon MD) Arm pain, left Atypical chest pain Dysuria Hx of labyrinthitis Frequent headaches History of fracture of tibia Cataracts, bilateral History of kidney stones Palpitations PVC's (premature ventricular contractions) Psoriasis COREY (obstructive sleep apnea) Irritable bowel syndrome (IBS) Hirsutism GERD (gastroesophageal reflux disease) Diverticulosis Diaphragmatic hernia Cystocele Hyperlipidemia Lichen sclerosus et atrophicus Rectocele Osteoporosis Diverticulitis History of psoriasis Obesity Surgical History History of colonoscopy History of right breast biopsy Disorder of uvula History of tubal ligation H/O dilation and curettage history of surgery for right and left nut feeder History of tonsillectomy History of bilateral cataract extraction Family History Brother CVA (cerebral vascular accident) Cancer bladder Mother Thyroid disorder Adult idiopathic generalized osteoporosis Skin cancer Cancer bladder,lymphoma Alzheimer's disease Myocardial infarction, Onset Age: 62 Father Cancer lung Hypertension Son , Age 45October Myocardial infarction, Onset Age: 45 at 45 Social History number of children: 2 current occupational status: retired Smoking Status: Never smoker alcohol intake: current alcohol intake frequency: holidays/special occasions only Alcohol type: wine details: social substance use type: does not use caffeine: Yes what type of physical activity do you participate in: walking seatbelt use: always do you feel safe at home: Yes additional social history: Chris- Both are Retired HPI HPI Chief Complaint: Lower back pain, joint pain Details: TONNY HILLIARD, is a 74 F who presents to the office today for annual follow-up. Overall seems to be doing well. She does have several issues that she wanted to discuss. Probably the biggest thing actively going on is that she has (more content not included)... Normal [facility] Magnesiumon 12-19-2024 Magnesium [Mass/Vol] 2.0 mg/dL Normal 1.5-2.[address] [facility] Comment on above: Performed By: #### L 500.4050, L501.5200, L500.4100, L506.1001, L100.0100, L501.9520 #### [facility] Laboratory [address] [place], [address] Magnesium measurement (mass/ volume)Ordered By: Manda Castellon on 12-19-2024 Magnesium (Unsp spec) [Mass/Vol] 2.0 mg/dL 1.5-2.[address] [facility] Mean corpuscular hemoglobin (MCH) determinationOrdered By: Manda Castellon on 12-19-2024 MCH (RBC) [Entitic mass] 27.6 pg 27.0-32.[address] [facility] Mean corpuscular hemoglobin concentration (MCHC) determinationOrdered By: Manda Castellon on 12-19-2024 MCHC (RBC) [Mass/Vol] 33.1 g/dL 32-36 [facility] Mean platelet volume determi nationOrdered By: Manda Castellon on 12-19-2024 Platelet mean volume (Bld) [Entitic vol] 9.7 fL 6.2-12.[address] [facility] Monocyte percentageOrdered B y: Manda Castellon on 12-19-2024 Monocytes/100 WBC (Bld) 7.8 % 0-10 [facility] Neutrophil percentageOrdered By: Manda Castellon on 12-19-2024 Neutrophils/100 WBC (Bld) 63.2 % 47-[address] [facility] Nucleated red blood cell per centageOrdered By: Manda Castellon on 12-19-2024 Nucleated RBC/100 WBC (Bld) [Ratio] 0 % 0-[address] [facility] Platelet countOrdered By: Mercedes Castellon on 12-19-2024 Platelets (Bld) [#/Vol] 289 10*3/uL 150-[address] [facility] Potassium measurement (mass/ volume)Ordered By: Manda Castellon on 12-19-2024 Potassium (Unsp spec) [Mass/Vol] 4.1 mmol/L 3.3-5.[address] [facility] RBC Auto (Bld) [#/Vol]Ordere d By: Manda Castellon on 12-19-2024 RBC (Bld) [#/Vol] 5.69 10*6/uL High 4.2-5.4 [facility] Screening total cholesterol/ high density lipoprotein (HDL) cholesterol ratioOrdered By: Manda Castellon on 12-19-2024 Cholesterol.total/Choles terol in HDL [Mass ratio] 3.10 {ratio} [facility] Serum creatinine measurement (mass/volume)Ordered By: Manda Castellon on 12-19-2024 Creatinine [Mass/Vol] 0.81 mg/dL 0.70-1.20 [facility] Serum globulin measurementOr dered By: Manda Castellon on 12-19-2024 Globulin (S) [Mass/Vol] 3.0 g/dL 2.2-4.2 [facility] Serum glucose measurement (m ass/volume)Ordered By: Manda Castellon on 12-19-2024 Glucose [Mass/Vol] 96 mg/dL 70-99 [facility] Serum or plasma alanine serna otransferase (ALT) measurementOrdered By: Manda Castellon on 12-19-2024 ALT [Catalytic activity/Vol] 25 U/L <[address] [facility] Serum or plasma albumin [place] urement (mass/volume)Ordered By: Manda Castellon on 12-19-2024 Albumin [Mass/Vol] 4.1 g/dL 3.4-4.8 [facility] Serum or plasma albumin/glob ulin mass ratioOrdered By: Manda Castellon on 12-19-2024 Albumin/Globulin [Mass ratio] 1.4 {ratio} 0.9-2.[address] [facility] Serum or plasma alkaline corazon sphatase measurementOrdered By: Manda Castellon on 12-19-2024 ALP [Catalytic activity/Vol] 96 U/L 35-[address] [facility] Serum or plasma calcium [place] urement (mass/volume)Ordered By: Manda Castellon on 12-19-2024 Calcium [Mass/Vol] 9.8 mg/dL 7.6-11.0 [facility] Serum or plasma cholesterol in HDL measurement (mass/volume)Ordered By: Manda Castellon on 12-19-2024 Cholesterol in HDL [Mass/Vol] 48 mg/dL >[address] [facility] Comment on above: National Cholesterol Education Program (NCEP) guidelines:<40 mg/dL: Low HDL-cholesterol (major risk factor for CHD)>= 60 mg/dL: High HDL-cholesterol (negative risk factor for CHD)HDL-cholesterol is affected by a number of factors, e.g. smoking, exercise, hormones, sex and age. Serum or plasma cholesterol measurement (mass/volume)Ordered By: Manda Castellon on 12-19-2024 Cholesterol [Mass/Vol] 148 mg/dL <201 [facility] Comment on above: Cholesterol level, D esirable <200 mg/dLBorderline high cholesterol 200-239 mg/dLHigh cholesterol >=240 mg/dLRecommendations of the NCEP Adult Treatment Panel for the following risk-cutoff thresholds for the [place] population. Serum or plasma urea nitroge n measurement (mass/volume)Ordered By: Manda Castellon on 12-19-2024 Urea nitrogen [Mass/Vol] 11 mg/dL 4-[address] [facility] Sodium levelOrdered By: Keeley Castellon on 12-19-2024 Sodium [Moles/Vol] 141 mmol/L 133-145 [facility] TSH DL <= 0.005 mIU/L QnOrde red By: Manda Castellon on 12-19-2024 TSH Qn 2.120 uIU/mL 0.300-4.[address] [facility] Thyroid Stim Hormone (TSH)on 12-19-2024 TSH 2.120 uIU/mL Normal 0.300-4.[address] [facility] Comment on above: Performed By: #### L 500.4050, L501.5200, L500.4100, L506.1001, L100.0100, L501.9520 #### [facility] [address] [place], [address] Total proteinOrdered By: Ester Castellon on 12-19-2024 Protein [Mass/Vol] 7.1 g/dL 5.9-8.4 [facility] Triglycerides measurementOrd ered By: Manda Castellon on 12-19-2024 Triglyceride [Mass/Vol] 87 mg/dL <199 [facility] Comment on above: The drugs N-Acetylcy steine and Metamizole may falsely depress this assay. Normal range: <150 mg/dLBorderline High: 150-199 mg/dLHigh: 200-499 mg/dLVery High: >500 mg/dL Vitamin D,25 Hydroxyon 12-19 Vitamin D 25-OH 27.9 ng/mL Low 30-[address] [facility] Comment on above: Result Comment: Rhianna min D Status Deficiency: <20 ng/mL (50nmol/L) Insufficiency: 20-30 ng/mL (50-75 nmol/L) Sufficiency: 30-100 ng/mL (75-250 nmol/L) Toxicity: >100 ng/mL (>250 nmol/L) Performed By: #### L 500.4050, L501.5200, L500.4100, L506.1001, L100.0100, L501.9520 ####[facility] [address] 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 Is patient in pain?: Yes (back pain from picking something up from foot stool, arthritis pain) Allergies bupropion (From Wellbutrin) Allergy (Intermediate, Verified 08/16/24 09:29) Unknown codeine (From Tylenol-Codeine) Allergy (Intermediate, Verified 08/16/24 09:29) Unknown Opioids - Morphine Analogues Allergy (Intermediate, Verified 08/16/24 09:29) Vomiting rosuvastatin Allergy (Intermediate, Verified 08/16/24 09:29) Unknown Seasonal Allergies: Uncoded Allergy (Mild, Verified 08/16/24 09:29) NEEDS FOLLOW-UP ciprofloxacin (From Cipro) Allergy (Verified 08/16/24 09:29) Other ciprofloxacin HCl (From Cipro) Allergy (Verified 08/16/24 09:29) Other lanolin Adverse Reaction (Verified 08/16/24 09:29) Rash morphine Adverse Reaction (Verified 08/16/24 09:29) Vomiting Medications ???Medication ???Instructions ???Recorded ???Confirmed ???Type calcium 315 mg (as 1 ea PO DAILY 01/30/19 08/16/24 Hi story citrate)-vitamin D3 6.25 mcg (250 unit) tablet cholecalciferol (vitamin D3) 25 1,000 unit PO DAILY 01/30/1908/16 History mcg (1,000 unit) capsule hydrocortisone 2.5 % topical cream 1 applic topical BID PRN itching 07/04/19 08/16/24 History clobetasol 0.05 % scalp solution 1 applic topical ONCE PRN itch 06/2708/16/24 History betamethasone dipropionate 0.05 % 1 applic topical DAILY PRN rash 0 06/24/21 08/16/24 History topical ointment turmeric 400 mg capsule mg PO 08/01/23 08/16/24 History vitamin B comp and C no.3 15 mg-10 1 cap PO DAILY 10/09/23 08/16/24 History mg-50 mg-5 mg-300 mg capsule (B Complex Plus Vitamin C) atorvastatin 20 mg tablet 20 mg PO QHS #30 tabs 07/02/2404/01 Rx clobetasol 0.05 % topical ointment 1 applic topical QHS #30 grams 0 08/16/24 08/16/24 Rx Is last menstrual period known: No Post menopausal: Yes Patient : No : No PFSH Medical History Dysuria Hx of labyrinthitis Frequent headaches History of fracture of tibia Cataracts, bilateral History of kidney stones Palpitations PVC's (premature ventricular contractions) Psoriasis COREY (obstructive sleep apnea) Irritable bowel syndrome (IBS) Hirsutism GERD (gastroesophageal reflux disease) Diverticulosis Diaphragmatic hernia Cystocele Hyperlipidemia Lichen sclerosus et atrophicus Rectocele Osteoporosis Diverticulitis History of psoriasis Obesity Surgical History History of colonoscopy History of right breast biopsy Disorder of uvula History of tubal ligation H/O dilation and curettage history of surgery for right and left nut feeder History of tonsillectomy History of bilateral cataract extraction Family History Brother CVA (cerebral vascular accident) Cancer bladder Mother Thyroid disorder Adult idiopathic generalized osteoporosis Skin cancer Cancer bladder,lymphoma Alzheimer's disease Myocardial infarction, Onset Age: 62 Father Cancer lung Hypertension Son , Age 45October Myocardial infarction, Onset Age: 45 at 45 Social History (Updated 08/16/24 @ 09:32 by Marce Wang) number of children: 2 current occupational status: retired Smoking Status: Never smoker alcohol intake: current alcohol intake frequency: holidays/special occasions only Alcohol type: wine details: social substance use type: does not use caffeine: Yes what type of physical activity do you participate in: walking seatbelt use: always do you feel safe at home: Yes additional social history: Chris- Both are Retired History 2 Elective abortions Hx Para 2 Spontaneous abortions Hx # Term Pregnancies Ectopic pregnancies Hx # Pregnancies Multiple births # of living children Past Pregnancies Del. Date Name GA/Weeks Outcome Route Bth Weight Gen Labor Lgth Anesthesia Del Locatn Provider FOB Unknown 1969 Raquel Waters Unknown 1973 Wilner Rueda (more content not included)... Normal [facility] Breast imaging reportOrdered By: Charlette Max on 08-09-2024 Study report [facility] Imaging Services [address] [place], [place] [id number] SCRN MAMM (CAD)W/EVAN OLMOS MR#: [id number] Acct: [id number] Name: TONNY HILLIARD Rep #: [id number] : 1950 F 74 From: Digna Max MD PCP: Dr. Manda Castellon MD Status: REG CLI Study:SCRN MAMM (CAD)W/EVAN BILAT Date of Exa m: 08/09/24 Exam# [id number] Ordering Dr: Jessica Mendoza MD EXAM: SCRN MAMM (CAD)W/EVAN BILAT 08/09/2024 CLINICAL HISTORY: F, Age 74 y/o , SCREENING TECHNIQUE: Bilateral screening digital breast tomosynthesis with 2D and 3D images. Computeraided detection. COMPARISON: Prior exam(s) dated 08/01/2023. FINDINGS: TISSUE DENSITY: The breast tissue is composed of scattered area of fibroglandular density. Bilateral Breast Mammographic Findings: No significant masses, calcifications or other abnormalities are identified. BI/SCRN MAMM (CAD)W/EVAN BILAT IMPRESSION: Right Breast: BIRADS 1 NEGATIVE. Left Breast: BIRADS 1 NEGATIVE. OVERALL FINAL ASSESSMENT: BIRADS 1 NEGATIVE. RECOMMENDATION: Routine annual follow-up in 1 Year A letter with findings and recommendations will be mailed to the patient. Reading Location: [facility] CC: Dr. Manda Castellon MD; Dr. Jessica Dale MD ~ [employer]: Signed [facility] SCRN MAMM (CAD)W/EVAN BILATo n 08-09-2024 SCRN MAMM (CAD)W/EVAN BILAT [facility] Imaging Services [address] [place] [address] SCRN MAMM (CAD)W/EVAN BILAT MR#: [id number] Acct: [id number] Name: TONNY HILLIARD Rep #: [id number] : 1950 F 74 From: Charlette aMx MD PCP: Dr. Manda Castellon MD Status: REG CLI Study: SCRN MAMM (CAD)W/EVAN BILAT Date of Exam: 08/30 Exam# [id number] Ordering Dr: Jessica Dale EXAM: SCRN MAMM (CAD)W/EVAN BILAT 08/09/2024 CLINICAL HISTORY: F, Age 74 y/o , SCREENING TECHNIQUE: Bilateral screening digital breast tomosynthesis with 2D and 3D images. Computer aided detection. COMPARISON: Prior exam(s) dated 08/01/2023. FINDINGS: TISSUE DENSITY: The breast tissue is composed of scattered area of fibroglandular density. Bilateral Breast Mammographic Findings: No significant masses, calcifications or other abnormalities are identified. BI/SCRN MAMM (CAD)W/EVAN BILAT IMPRESSION: Right Breast: BIRADS 1 NEGATIVE. Left Breast: BIRADS 1 NEGATIVE. OVERALL FINAL ASSESSMENT: BIRADS 1 NEGATIVE. RECOMMENDATION: Routine annual follow-up in 1 Year A letter with findings and recommendations will be mailed to the patient. Reading Location: [facility] CC: Dr. Manda Castellon MD; Dr. Jessica Dale MD [employer]: Signed Normal [facility] Bilirubin directOrdered By: Dereje Salvador on 07-04-2024 Bilirubin.direct [Mass/Vol] 0.42 mg/dL High 0.00-0.[address] [facility] Bilirubin, totalOrdered By: Dereje Salvador on 07-04-2024 Bilirubin [Mass/Vol] 1.06 mg/dL 0.00-1.[address] [facility] Calculated very low density lipoprotein (VLDL) cholesterol measurementOrdered By: Dereje Salvador on 07-04-2024 VLDL Cholesterol 16 mg/dL 5-[address] [facility] LDL calc ser/plasOrdered By: Dereje Salvador on 07-04-2024 LDL Cholesterol, Calculated 100 mg/dL [facility] Comment on above: Pjykaonpgk=735-437 m g/dL & Higher Utjj=648 mg/dL or greater Laboratory - Chemistry and C hemistry - challengeOrdered By: Dereje Salvador on 07-04-2024 AST [Catalytic activity/Vol] 30 U/L <[address] [facility] Lipid Profileon 07-04-2024 CHOL:HDL 3.[address] [facility] Comment on above: Performed By: #### L 500.3400, L500.4100 ####[facility] [address] [place], [place], [id number] Cholesterol [Mass/Vol] 169 mg/dL Normal <=200 [facility] Comment on above: Result Comment: Chol esterol level, Desirable <200 mg/dL Borderline high cholesterol 200-239 mg/dL High cholesterol >=240 mg/dL Recommendations of the NCEP Adult Treatment Panel for the following risk-cutoff thresholds for the [place] population. Performed By: #### L 500.3400, L500.4100 ####[facility] [address] [place], [address] Cholesterol in HDL [Mass/Vol] 53 mg/dL Normal [facility] Comment on above: Result Comment: Neeta onal Cholesterol Education Program (NCEP) guidelines: <40 mg/dL: Low HDL-cholesterol (major risk factor for CHD) >= 60 mg/dL: High HDL-cholesterol (negative risk factor for CHD) HDL-cholesterol is affected by a number of factors, e.g. smoking, exercise, hormones, sex and age. Performed By: #### L 500.3400, L500.4100 ####[facility] [address] [place], [address] Cholesterol in LDL [Mass/Vol] 100 mg/dL Normal [facility] Comment on above: Result Comment: Bord niwhja=674-836 mg/dL Higher Qses=523 mg/dL or greater Performed By: #### L 500.3400, L500.4100 ####[facility] [address] [place], [address] Cholesterol in VLDL [Mass/Vol] 16 mg/dL Normal 5-[address] [facility] Comment on above: Performed By: #### L 500.3400, L500.4100 ####[facility] [address] [place], [address] Triglyceride [Mass/Vol] 80 mg/dL Normal [facility] Comment on above: Result Comment: The drugs N-Acetylcysteine and Metamizole may falsely depress this assay. Normal range: <150 mg/dL Borderline High: 150-199 mg/dL High: 200-499 mg/dL Very High: >500 mg/dL Performed By: #### L 500.3400, L500.4100 ####[facility] [address] [place], [address] Liver Profileon 07-04-2024 Albumin [Mass/Vol] 3.9 g/dL Normal 3.4-4.8 [facility] Comment on above: Performed By: #### L 500.3400, L500.4100 ####[facility] [address] [place], [address] ALK PHOS 96 U/L Normal 35-[address] [facility] Comment on above: Performed By: #### L 500.3400, L500.4100 ####[facility] [address] [place], [address] ALT [Catalytic activity/Vol] 28 U/L Normal <=[address] [facility] Comment on above: Performed By: #### L 500.3400, L500.4100 ####[facility] [address] [place], [address] AST [Catalytic activity/Vol] 30 U/L Normal <=[address] [facility] Comment on above: Performed By: #### L 500.3400, L500.4100 ####[facility] [address] [place], [address] Bilirubin [Mass/Vol] 1.06 mg/dL Normal 0.00-1.[address] [facility] Comment on above: Performed By: #### L 500.3400, L500.4100 ####[facility] [address] [place], [address] Bilirubin.direct [Mass/Vol] 0.42 mg/dL High 0.00-0.[address] [facility] Comment on above: Performed By: #### L 500.3400, L500.4100 ####[facility] [address] [place], [address] Globulin (S) [Mass/Vol] 2.9 g/dL Normal 2.2-4.2 [facility] Comment on above: Performed By: #### L 500.3400, L500.4100 ####[facility] [address] [place], [place], [id number] T PROT 6.9 g/dL Normal 5.9-8.[address] [facility] Comment on above: Performed By: #### L 500.3400, L500.4100 ####[facility] [address] [place], [place], [address] Screening total cholesterol/ high density lipoprotein (HDL) cholesterol ratioOrdered By: Dereje Salvador on 07-04-2024 Cholesterol.total/Choles terol in HDL [Mass ratio] 3.21 {ratio} [facility] Serum globulin measurementOr dered By: Dereje Salvador on 07-04-2024 Globulin (S) [Mass/Vol] 2.9 g/dL 2.2-4.2 [facility] Serum or plasma alanine serna otransferase (ALT) measurementOrdered By: Dereje Salvador on 07-04-2024 ALT [Catalytic activity/Vol] 28 U/L <[address] [facility] Serum or plasma albumin [place] urement (mass/volume)Ordered By: Dereje Salvador on 07-04-2024 Albumin [Mass/Vol] 3.9 g/dL 3.4-4.8 [facility] Serum or plasma alkaline corazon sphatase measurementOrdered By: Dereje Salvador on 07-04-2024 ALP [Catalytic activity/Vol] 96 U/L 35-[address] [facility] Serum or plasma cholesterol in HDL measurement (mass/volume)Ordered By: Dereje Salvador on 07-04-2024 Cholesterol in HDL [Mass/Vol] 53 mg/dL >[address] [facility] Comment on above: National Cholesterol Education Program (NCEP) guidelines:<40 mg/dL: Low HDL-cholesterol (major risk factor for CHD)>= 60 mg/dL: High HDL-cholesterol (negative risk factor for CHD)HDL-cholesterol is affected by a number of factors, e.g. smoking, exercise, hormones, sex and age. Serum or plasma cholesterol measurement (mass/volume)Ordered By: Dereje Salvador on 07-04-2024 Cholesterol [Mass/Vol] 169 mg/dL <201 [facility] Comment on above: Cholesterol level, D esirable <200 mg/dLBorderline high cholesterol 200-239 mg/dLHigh cholesterol >=240 mg/dLRecommendations of the NCEP Adult Treatment Panel for the following risk-cutoff thresholds for the [place] population. Total proteinOrdered By: Gordy Salvador on 07-04-2024 Protein [Mass/Vol] 6.9 g/dL 5.9-8.4 [facility] Triglycerides measurementOrd ered By: Dereje [place] on 07-04-2024 Triglyceride [Mass/Vol] 80 mg/dL <199 [facility] Comment on above: The drugs N-Acetylcy steine and Metamizole may falsely depress this assay. Normal range: <150 mg/dLBorderline High: 150-199 mg/dLHigh: 200-499 mg/dLVery High: >500 mg/dL Urine Cultureon 06-27-2024 URC Below infection level. Gram positive organism Hollis Count <[address] [facility] Comment on above: Performed By: #### L 500.4050, L506.999, , ####[facility] [address] [place], [place], [address] Vitamin D,25 Hydroxyon 06-27 Vitamin D 25-OH 34.6 ng/mL Normal [facility] Comment on above: Result Comment: Rhianna min D 25(OH) Status Range Deficiency <20 ng/mL (50nmol/L) Insufficiency 20 - 30 ng/mL (50 - 75 nmol/L) Sufficiency 30 - 100 ng/mL (75 - 250 nmol/L) Toxicity >100 ng/mL (>250 nmol/L) Performed By: #### L 500.4050, L506.1000, L4, ####[facility] [address] [place], [address] 76-CV-Srmpmtb DOrdered By: Gordo Sierra on 06-25-2024 Vitamin D 25-Hydroxy 34.6 ng/mL [facility] Comment on above: Vitamin D 25(OH) Sta tus Range Deficiency <20 ng/mL (50nmol/L) Insufficiency 20 - 30 ng/mL (50 - 75 nmol/L) Sufficiency 30 - 100 ng/mL (75 - 250 nmol/L) Toxicity >100 ng/mL (>250 nmol/L) Albumin to globulin ratioOrd ered By: Stiven Sierra on 06-25-2024 Albumin/Globulin [Mass ratio] 0.9 {ratio} 0.9-2.[address] [facility] Bilirubin Test strip Ql (U)O rdered By: Stiven Sierra on 06-25-2024 Bilirubin Ql (U) Negative Negative [facility] Bilirubin, totalOrdered By: Stiven Sierra on 06-25-2024 Bilirubin [Mass/Vol] 0.90 mg/dL 0.20-1.[address] [facility] Comment on above: For patients on eltr ombopag therapy, use of Dimension Salix TBIL is not recommended. Blood urea nitrogen (BUN)/cr eatinine ratioOrdered By: Stiven Sierra on 06-25-2024 Urea nitrogen/Creatinine [Mass ratio] 15.0 mg/mg 10-[address] [facility] Carbon dioxide measurementOr dered By: Stiven Sierra on 06-25-2024 CO2 [Moles/Vol] 28.0 mmol/L 21.0-32.[address] [facility] Chloride measurementOrdered By: Stiven Sierra on 06-25-2024 Chloride [Moles/Vol] 105 mmol/L 98-[address] [facility] Comprehensive Metabolic Prof ilon 06-25-2024 Albumin [Mass/Vol] 3.3 g/dL Normal 3.2-5.0 [facility] Comment on above: Performed By: #### L 500.4050, L506.1000, L4, ####[facility] [address] [place], [place], [id number] Albumin/Globulin [Mass ratio] 0.9 {ratio} Normal 0.9-2.[address] [facility] Comment on above: Performed By: #### L 500.4050, L506.1000, , ####[facility] [address] [place], [address] ALK P 95 U/L Normal 45-[address] [facility] Comment on above: Performed By: #### L 500.4050, L506.1000, L4, ####[facility] [address] [place], [address] ALT [Catalytic activity/Vol] 35 U/L Normal 13-[address] [facility] Comment on above: Performed By: #### L 500.4050, L506.1000, L4, ####[facility] [address] [place], [address] AST [Catalytic activity/Vol] 27 U/L Normal 15-[address] [facility] Comment on above: Performed By: #### L 500.4050, L506.999, , ####[facility] [address] [place], [address] Bilirubin [Mass/Vol] 0.90 mg/dL Normal 0.20-1.[address] [facility] Comment on above: Result Comment: For patients on eltrombopag therapy, use of Dimension Salix TBIL is not recommended. Performed By: #### L 500.4050, L506.1000, L4, ####[facility] [address] [place], [address] BUN/CRE 15.0 RATIO Normal 10-[address] [facility] Comment on above: Performed By: #### L 500.4050, L506.1000, , ####[facility] [address] [place], [address] CA,Total 9.8 mg/dL Normal 8.5-10.[address] [facility] Comment on above: Performed By: #### L 500.4050, L506.1000, L4, ####[facility] [address] [place], [address] Chloride [Moles/Vol] 105 mmol/L Normal 98-[address] [facility] Comment on above: Performed By: #### L 500.4050, L506.1000, L4, ####[facility] [address] [place], [address] CO2 [Moles/Vol] 28.0 mmol/L Normal 21.0-32.[address] [facility] Comment on above: Performed By: #### L 500.4050, L506.999, , ####[facility] [address] [place], [address] Creatinine [Mass/Vol] 0.73 mg/dL Normal 0.55-1.02 [facility] Comment on above: Result Comment: The validity of the calculated GFR GFRAA in patients over 70 years has not been determined. Clinical correlation is essential. Performed By: #### L 500.4050, L506.999, , ####[facility] [address] [place], [address] EST GFR - AA 100 mL/min Normal >[address] [facility] Comment on above: Result Comment: Afri can Citizen Of [place] GFR Calc Performed By: #### L 500.4050, L506.1000, L4, ####[facility] [address] [place], [address] GAP 6 Normal 5-[address] [facility] Comment on above: Performed By: #### L 500.4050, L506.1000, L4, ####[facility] [address] [place], [address] GFR/1.73 sq M.predicted among non-blacks MDRD (S/P/Bld) [Vol rate/Area] 82 mL/min/{1.73_m2} Normal >[address] [facility] Comment on above: Result Comment: Non- GFR Calc Performed By: #### L 500.4050, L506.1000, , ####[facility] [address] [place], [address] Globulin (S) [Mass/Vol] 3.6 g/dL Normal 2.2-4.2 [facility] Comment on above: Performed By: #### L 500.4050, L506.999, , ####[facility] [address] [place], [address] Glucose [Mass/Vol] 82 mg/dL Normal 74-106 [facility] Comment on above: Performed By: #### L 500.4050, L506.999, , ####[facility] [address] [place], [address] Potassium [Moles/Vol] 4.4 mmol/L Normal 3.5-5.1 [facility] Comment on above: Performed By: #### L 500.4050, L506.1000, , ####[facility] [address] [place], [address] Sodium [Moles/Vol] 140 mmol/L Normal 136-145 [facility] Comment on above: Performed By: #### L 500.4050, L506.1000, , ####[facility] [address] [place], [address] T PROT 6.9 g/dL Normal 6.4-8.[address] [facility] Comment on above: Performed By: #### L 500.4050, L506.1000, , M100.220 ####[facility] [address] [place], [address] Urea nitrogen [Mass/Vol] 11 mg/dL Normal - [facility] Comment on above: Performed By: #### L 500.4050, L506.1000, L400.2010, M100.2200 ####[facility] [address] [place], [address] Estimated glomerular filtrat ion rate (GFR) AmericanOrdered By: Stiven Sierra on 06-25-2024 Estimated GFR (MDRD) Amer 100 mL/min >[address] [facility] Comment on above: GFR Calc Glomerular filtration rate ( GFR) estimationOrdered By: Stiven Sierra on 06-25-2024 Estimated GFR (MDRD) Non-Af Amer 82 mL/min >[address] [facility] Comment on above: Non- GFR Calc Glucose Ql (U)Ordered By: Scott Sierra on 06-25-2024 Urine Glucose (UA) Normal mg/dl Normal [facility] Glucose measurementOrdered B y: Stiven Sierra on 06-25-2024 Glucose [Mass/Vol] 82 mg/dL 74-106 [facility] Ketones Test strip Ql (U)Ord ered By: Stiven Sierra on 06-25-2024 Ketones Ql (U) Negative Negative [facility] Laboratory - Chemistry and C hemistry - challengeOrdered By: Stiven Sierra on 06-25-2024 AST [Catalytic activity/Vol] 27 U/L 15-[address] [facility] Lipid Profileon 06-25-2024 HDL Normal [facility] Comment on above: Result Comment: [facility] DIDNT FAST, WILL COME CBACK ANOTHER DAY. CALLED THE DR. JORGE HAVE ORDERS PUT BACK IN! The drugs N-Acetylcysteine and Metamizole may falsely depress this assay. Performed By: #### L 500.4100, L500.3400 ####[facility] [address] [place], [address] TRIG [address] [facility] Comment on above: Result Comment: [facility] DIDNT FAST, WILL COME CBACK ANOTHER DAY. CALLED THE TO HAVE ORDERS PUT BACK IN! The drugs N-Acetylcysteine and Metamizole may falsely depress this assay. Performed By: #### L 500.4100, L500.3400 ####[facility] [address] [place], [address] CHOL Normal [address] [facility] Comment on above: Result Comment: [facility] DIDNT FAST, WILL COME CBACK ANOTHER DAY. CALLED THE TO HAVE ORDERS PUT BACK IN! Performed By: #### L 500.4100, L500.3400 ####[facility] [address] [place], [address] LDL Normal 0-[address] [facility] Comment on above: Result Comment: [facility] DIDNT FAST, WILL COME CBACK ANOTHER DAY. CALLED THE TO HAVE ORDERS PUT BACK IN! Performed By: #### L 500.4100, L500.3400 ####[facility] [address] [place], [address] VLDL Normal 5-[address] [facility] Comment on above: Result Comment: [facility] DIDNT FAST, WILL COME CBACK ANOTHER DAY. CALLED THE TO HAVE ORDERS PUT BACK IN! Performed By: #### L 500.4100, L500.3400 ####[facility] [address] [place], [address] Liver Profileon 06-25-2024 ALB Normal 3.2-5.[address] [facility] Comment on above: Result Comment: [facility] DIDNT FAST, WILL COME CBACK ANOTHER DAY. CALLED THE TO HAVE ORDERS PUT BACK IN! Performed By: #### L 500.4100, L500.3400 ####[facility] [address] [place], [address] ALK P Normal 45-[address] [facility] Comment on above: Result Comment: [facility] DIDNT FAST, WILL COME CBACK ANOTHER DAY. CALLED THE TO HAVE ORDERS PUT BACK IN! Performed By: #### L 500.4100, L500.3400 ####[facility] [address] [place], [address] ALT Normal 13-[address] [facility] Comment on above: Result Comment: [facility] DIDNT FAST, WILL COME CBACK ANOTHER DAY. CALLED THE TO HAVE ORDERS PUT BACK IN! Performed By: #### L 500.4100, L500.3400 ####[facility] [address] [place], [address] AST Normal 15-[address] [facility] Comment on above: Result Comment: [facility] DIDNT FAST, WILL COME CBACK ANOTHER DAY. CALLED THE TO HAVE ORDERS PUT BACK IN! Performed By: #### L 500.4100, L500.3400 ####[facility] [address] [place], [address] D BILI Normal 0.00-0.[address] [facility] Comment on above: Result Comment: [facility] DIDNT FAST, WILL COME CBACK ANOTHER DAY. CALLED THE TO HAVE ORDERS PUT BACK IN! Performed By: #### L 500.4100, L500.3400 ####[facility] [address] [place], [address] T BILI Normal 0.20-1.[address] [facility] Comment on above: Result Comment: [facility] DIDNT FAST, WILL COME CBACK ANOTHER DAY. CALLED THE TO HAVE ORDERS PUT BACK IN! Performed By: #### L 500.4100, L500.3400 ####[facility] [address] [place], [address] T PROT Normal 6.4-8.[address] [facility] Comment on above: Result Comment: [facility] DIDNT FAST, WILL COME CBACK ANOTHER DAY. CALLED THE TO HAVE ORDERS PUT BACK IN! Performed By: #### L 500.4100, L500.3400 ####[facility] [address] [place], [address] Nitrite Test strip Ql (U)Ord ered By: Stiven Sierra on 06-25-2024 Nitrite Ql (U) Negative Negative [facility] Potassium measurementOrdered By: Stiven Sierra on 06-25-2024 Potassium [Moles/Vol] 4.4 mmol/L 3.5-5.1 [facility] Protein Test strip Ql (U)Ord ered By: Stiven Sierra on 06-25-2024 Protein Ql (U) Negative Negative [facility] Serum anion gap measurementO rdered By: Stiven Sierra on 06-25-2024 Anion gap [Moles/Vol] 6 mmol/L 5-15 [facility] Serum globulin measurementOr dered By: Stiven Sierra on 06-25-2024 Globulin (S) [Mass/Vol] 3.6 g/dL 2.2-4.2 [facility] Serum or plasma alanine serna otransferase (ALT) measurementOrdered By: Stiven Sierra on 06-25-2024 ALT [Catalytic activity/Vol] 35 U/L 13-[address] [facility] Serum or plasma albumin j[place] urement (mass/volume)Ordered By: Stiven Sierra on 06-25-2024 Albumin [Mass/Vol] 3.3 g/dL 3.2-5.0 [facility] Serum or plasma alkaline corazon sphatase measurementOrdered By: Stiven Sierra 06-25-2024 ALP [Catalytic activity/Vol] 95 U/L 45-[address] [facility] Serum or plasma calcium [place] urement (mass/volume)Ordered By: Stiven Sierra 06-25-2024 Calcium [Mass/Vol] 9.8 mg/dL 8.5-10.1 [facility] Serum or plasma creatinine m easurement (mass/volume)Ordered By: Stiven Sierra 06-25-2024 Creatinine [Mass/Vol] 0.73 mg/dL 0.55-1.02 [facility] Comment on above: The validity of the calculated GFR & GFRAA in patients over 70 years has not been determined. Clinical correlation is essential. Serum or plasma urea nitroge n measurement (mass/volume)Ordered By: Stiven Sierra on 06-25-2024 Urea nitrogen [Mass/Vol] 11 mg/dL 7-[address] [facility] Sodium levelOrdered By: Stiven Sierra on 06-25-2024 Sodium [Moles/Vol] 140 mmol/L 136-145 [facility] Total proteinOrdered By: Nahid Sierra on 06-25-2024 Protein [Mass/Vol] 6.9 g/dL 6.4-8.2 [facility] Urinalysis, Routine (Dipstic k)on 06-25-2024 BILIRUBIN URINE Negative Normal Negative [facility] Comment on above: Order Comment: SAPPHIRE CTOR TO SPECIFY Performed By: #### L 500.4050, L506.1000, L4, ####[facility] [address] [place], [address] Clarity (U) Clear Normal Clear [facility] Comment on above: Order Comment: SAPPHIRE CTOR TO SPECIFY Performed By: #### L 500.4050, L506.1000, , ####[facility] [address] [place], [address] Color (U) Yellow Normal Yellow [facility] Comment on above: Order Comment: SAPPHIRE CTOR TO SPECIFY Performed By: #### L 500.4050, L506.1000, L4, .2199 ####[facility] [address] [place], [address] GLUCOSE, UR Normal Normal Normal [facility] Comment on above: Order Comment: COLLE CTOR TO SPECIFY Performed By: #### L 500.4050, L506.1000, L4, ####[facility] [address] [place], [address] KETONE UR Negative Normal Negative [facility] Comment on above: Order Comment: COLLE CTOR TO SPECIFY Performed By: #### L 500.4050, L506.1000, L400, ####[facility] [address] [place], [address] LEUK ESTERASE 25 /ul Abnormal Negative [facility] Comment on above: Order Comment: COLLE CTOR TO SPECIFY Performed By: #### L 500.4050, L506.1000, L4.2010, .2199 ####[facility] [address] [place], [address] Nitrite Ql (U) Negative Normal Negative [facility] Comment on above: Order Comment: COLLE CTOR TO SPECIFY Performed By: #### L 500.4050, L506.1000, L4.2010, .2199 ####[facility] [address] [place], [address] OCCULT BLOOD-UR Negative Normal Negative [facility] Comment on above: Order Comment: SAPPHIRE CTOR TO SPECIFY Performed By: #### L 500.4050, L506.1000, L4.2010, .2199 ####[facility] [address] [place], [address] pH UR 7.0 Normal 5.0 - 8.[address] [facility] Comment on above: Order Comment: SAPPHIRE CTOR TO SPECIFY Performed By: #### L 500.4050, L506.1000, L4.2010, .2199 ####[facility] [address] [place], [address] PROT DIPSTX Negative Normal Negative [facility] Comment on above: Order Comment: SAPPHIRE CTOR TO SPECIFY Performed By: #### L 500.4050, L506.1000, L4.2010, .2199 ####[facility] [address] [place], [address] SP.GR. DIPSTX 1.010 Normal 1.002-1.[address] [facility] Comment on above: Order Comment: SAPPHIRE CTOR TO SPECIFY Performed By: #### L 500.4050, L506.1000, L400.2010, .2199 ####[facility] [address] [place], [place], [address] UROBILI Normal Normal Normal [facility] Comment on above: Order Comment: COLLE CTOR TO SPECIFY Performed By: #### L 500.4050, L506.1000, L400.2011, M100.2200 ####[facility] [address] [place], [address] Urine blood detectionOrdered By: Stiven Sierra on 06-25-2024 Urine Occult Blood Negative Negative [facility] Urine clarityOrdered By: Nahid Sierra on 06-25-2024 Clarity (U) Clear Clear [facility] Urine color determinationOrd ered By: Stiven Sierra on 06-25-2024 Color (U) Yellow Yellow [facility] Urine cultureOrdered By: Nahid Sierra on 06-25-2024 Bacteria identified Cx Nom (U) Positive Abnormal [facility] Urine leukocyte esterase det ection by dipstickOrdered By: Stiven Sierra on 06-25-2024 Leukocyte esterase Test strip Ql (U) 25 /ul High Negative [facility] Urine pHOrdered By: Stiven cortez on 06-25-2024 pH (U) 7.0 [pH] 5.0 - 8.[address] [facility] Urine specific gravity measu rementOrdered By: Stiven Sierra on 06-25-2024 Specific gravity (U) [Rel density] 1.010 1.002-1.[address] [facility] Urobilinogen Ql (U)Ordered B y: Stiven Sierra on 06-25-2024 Urine Urobilinogen Normal mg/dl Normal [facility] Endocrinology Visit Reporton 06-13-2024 Endocrinology Visit Report [facility] [address] [place] [address] OFFICE VISIT Date of Service: 06/13/24 MR#: [id number] Acct: [id number] Name: TONNY HILLIARD Rep #: [id number] : 1950 Provider: Mehul Gutierrez Age/Sex: 74/F [place] [facility] [place]: Signed Intake Vital Signs 06/13/23 08:49 04/10/24 09:08 06/13/24 08:59 Height 5 ft 5 in 5 ft 5 in 5 ft 5 in Weight: 227 lb BMI 37.8 BP 131/78 H Blood Pressure Location Rt brachial Position Sitting Pulse 68 Pulse Source Monitor Pulse Oximetry (%) 97 Oxygen Delivery Method room air Intake Visit Reasons: 1 Y FU Chief Complaint: 6 m fu Allergies bupropion (From Wellbutrin) Allergy (Intermediate, Verified 06/13/24 08:58) Unknown codeine (From Tylenol-Codeine) Allergy (Intermediate, Verified 06/13/24 08:58) Unknown Opioids - Morphine Analogues Allergy (Intermediate, Verified 06/13/24 08:58) Vomiting rosuvastatin Allergy (Intermediate, Verified 06/13/24 08:58) Unknown Seasonal Allergies: Uncoded Allergy (Mild, Verified 06/13/24 08:58) NEEDS FOLLOW-UP ciprofloxacin (From Cipro) Allergy (Verified 06/13/24 08:58) Other ciprofloxacin HCl (From Cipro) Allergy (Verified 06/13/24 08:58) Other lanolin Adverse Reaction (Verified 06/13/24 08:58) Rash morphine Adverse Reaction (Verified 06/13/24 08:58) Vomiting Medications ???Medication ???Instructions ???Recorded ???Confirmed ???Type calcium 315 mg (as 1 ea PO DAILY 01/30/19 06/13/24 Hi story citrate)-vitamin D3 6.25 mcg (250 unit) tablet cholecalciferol (vitamin D3) 25 1,000 unit PO DAILY 01/30/1906/13 History mcg (1,000 unit) capsule hydrocortisone 2.5 % topical cream 1 applic topical BID PRN itching 07/04/19 06/13/24 History clobetasol 0.05 % scalp solution 1 applic topical ONCE PRN itch 06/2706/13/24 History betamethasone dipropionate 0.05 % 1 applic topical DAILY PRN rash 0 06/24/21 06/13/24 History topical ointment atorvastatin 20 mg tablet 20 mg PO QHS #90 tabs 05/02/2310/30 Rx zoledronic acid 5 mg/100 mL in 1 ea .Route ONCE #100 mL 06/13/23 06/13/24 Rx mannitol 5 %-water intravenous piggybck turmeric 400 mg capsule mg PO 08/01/23 06/13/24 History doxycycline hyclate 20 mg tablet 20 mg PO BID 10/09/23 06/13/24 His tory vitamin B comp and C no.3 15 mg-10 1 cap PO DAILY 10/09/23 06/13/24 History mg-50 mg-5 mg-300 mg capsule (B Complex Plus Vitamin C) Have you fallen in the past year?: No PFSH Medical History (Updated 06/13/24 @ 09:[address] Stiven Sierra MD) Dysuria Hx of labyrinthitis Frequent headaches History of fracture of tibia Cataracts, bilateral History of kidney stones Palpitations PVC's (premature ventricular contractions) Psoriasis COREY (obstructive sleep apnea) Irritable bowel syndrome (IBS) Hirsutism GERD (gastroesophageal reflux disease) Diverticulosis Diaphragmatic hernia Cystocele Hyperlipidemia Lichen sclerosus et atrophicus Rectocele Osteoporosis Diverticulitis History of psoriasis Obesity Surgical History History of colonoscopy History of right breast biopsy Disorder of uvula History of tubal ligation H/O dilation and curettage history of surgery for right and left nut feeder History of tonsillectomy History of bilateral cataract extraction Family History Brother CVA (cerebral vascular accident) Cancer bladder Mother Thyroid disorder Adult idiopathic generalized osteoporosis Skin cancer Cancer bladder,lymphoma Alzheimer's disease Myocardial infarction, Onset Age: 62 Father Cancer lung Hypertension Son , Age 45October Myocardial infarction, Onset Age: 45 at 45 Social History Smoking Status: Never smoker alcohol intake: current alcohol intake frequency: holidays/special occasions only Alcohol type: wine details: social substance use type: does not use caffeine: Yes what type of physical activity do you participate in: walking seatbelt use: always do you feel safe at home: Yes additional social history: Chris- Gilberto are Retired HPI HPI TONNY HILLIARD, is a 74 F who presents to the office today for follow up. Fracture history: first grade arm, tibia 2019 fell off ladder Mom had osteoporosis and fractured a hip Lumbar Spine (L1-L4):??? g/cm2 (0.965)??? /??? T-score (-0.7)??? /??? Z-score (1.4) Findings are suggestive of normal bone density with a low fracture risk. Left Femur Total:??? g/cm2 (0.729)??? /??? T-score (-1.7)??? /??? Z-score (-0.2) Left Femoral Neck:??? g/cm2 (0.532)??? /??? T-score (-2.9)??? /??? Z-score (-1.0) Right Femu (more content not included)... Normal [facility] Dexa Bone Density Studyon Dexa Bone Density Study [facility] [address] [place] [address] Dexa Bone Density Study MR#: [id number] Acct: [id number] Name: TONNY HILLIARD Rep #: [id number] : 1950 F 74 From: Chris Young MD PCP: Dr. Manda Castellon MD Status: [facility] Study: Dexa Bone Density Study Date of Exam: 04/30/24 Exam# [id number] Ordering Dr: Stiven Sierra MD [id number] STUDY: DUAL ENERGY X-RAY ABSORPTIOMETRY / DXA REASON FOR EXAM: Female, 74 years old. compare TECHNIQUE: Bone Mineral Density (BMD) measurements of lumbar spine and bilateral hips were obtained. COMPARISON: 01/19/2021 FINDINGS: Lumbar Spine (L1-L4): g/cm2 (1.001) / T-score (-0.4) / Z-score (1.9) Findings are suggestive of normal bone density with a low fracture risk. Left Femur Total: g/cm2 (0.779) / T-score (-1.3) / Z-score (0.4) Left Femoral Neck: g/cm2 (0.565) / T-score (-2.6) / Z-score (-0.5) Right Femur Total: g/cm2 (0.854) / T-score (-0.7) / Z-score (1.0) Right Femoral Neck: g/cm2 (0.588) / T-score (-2.4) / Z-score (-0.3) BD/Dexa Bone Density Study IMPRESSION: The patient is considered osteoporotic as outlined below according to World Gene Organization (WHO) criteria with a high fracture risk. There has been improvement of bone density since the previous examination. Reference Information: The T-score is the number of standard deviations above or below the standard which is normal for young adults at their peak bone mineral density. The World Health Organization (WHO) interprets the T-scores as follows: Above -1 Normal bone density Between -1 and -2.5 Osteopenia Equal to / or below -2.5 Osteoporosis As a practical clinical guideline, osteopenia may be graded as follows: Mild -1 through -1.5 Moderate -1.6 through -2.0 Severe -2.1 through -2.4 The Z-score is the number of standard deviations above or below age-matched controls. A Z-score of less than -1.5 would be considered abnormal. References: 1. NIH Osteoporosis and Related Bone Diseases www osteo.org 2. International Society for Clinical Densitometry www iscd.org 3. National Osteoporosis Foundation www nof.org Electronically Signed: Chris Young MD at 14:05 EST , CC: Dr. Manda Castellon MD; Dr. Stiven Sierra MD [employer]: Signed Normal [facility] MR/LONNIEBon 04-10-2024 MR/BMS.IMB [facility] [address] [place] [address] OFFICE VISIT Date of Service: 04/10/24 MR#: [id number] Acct: [id number] Name: TONNY HILLIARD Rep #: [id number] : 1950 Provider: Dr. Manda doll MD Age/Sex: 74/F Location: [facility] Status: Signed Intake Vital Signs 12/11/23 08:45 04/10/24 09:08 Height 5 ft 5 in 5 ft 5 in Weight: 219 lb 225 lb 6 oz BMI 36.4 37.5 BP 134/84 H 148/70 H Blood Pressure Location Rt brachial Lt brachial Position Sitting Sitting Respiration 16 16 Pulse 60 67 Pulse Source Monitor Monitor Temp 98.6 F Temp Source Temporal Pulse Oximetry (%) 96 97 Oxygen Delivery Method room air room air Intake Visit Reasons: 6 M FU Chief Complaint: 6 m fu Estimator Printing Required: No Accompanied by: Self Is patient in pain?: Yes (back pain) Pain scale (1-10): 7 Allergies bupropion (From Wellbutrin) Allergy (Intermediate, Verified 04/10/24 08:53) Unknown codeine (From Tylenol-Codeine) Allergy (Intermediate, Verified 04/10/24 08:53) Unknown Opioids - Morphine Analogues Allergy (Intermediate, Verified 04/10/24 08:53) Vomiting rosuvastatin Allergy (Intermediate, Verified 04/10/24 08:53) Unknown Seasonal Allergies: Uncoded Allergy (Mild, Verified 04/10/24 08:53) NEEDS FOLLOW-UP ciprofloxacin (From Cipro) Allergy (Verified 04/10/24 08:53) Other ciprofloxacin HCl (From Cipro) Allergy (Verified 04/10/24 08:53) Other lanolin Adverse Reaction (Verified 04/10/24 08:53) Rash morphine Adverse Reaction (Verified 04/10/24 08:53) Vomiting Medications ???Medication ???Instructions ???Recorded ???Confirmed ???Type calcium 315 mg (as 1 ea PO DAILY 01/30/19 04/10/24 History citrate)-vitamin D3 6.25 mcg (250 unit) tablet cholecalciferol (vitamin D3) 25 1,000 unit PO DAILY 01/30/19 04/10/24 History mcg (1,000 unit) capsule hydrocortisone 2.5 % topical cream 1 applic topical BID PRN itching 07/04/19 04/10/24 History clobetasol 0.05 % scalp solution 1 applic topical ONCE PRN itch 04/08/20 04/10/24 History betamethasone dipropionate 0.05 % 1 applic topical DAILY PRN rash 06/24/21 04/10/24 History topical ointment atorvastatin 20 mg tablet 20 mg PO QHS #90 tabs 05/02/23 04/10/24 Rx zoledronic acid 5 mg/100 mL in 1 ea .Route ONCE #100 mL 06/13/23 04/10/24 Rx mannitol 5 %-water intravenous piggybck turmeric 400 mg capsule mg PO 08/01/23 04/10/24 History doxycycline hyclate 20 mg tablet 20 mg PO BID 10/09/23 04/10/24 History vitamin B comp and C no.3 15 mg-10 1 cap PO DAILY 10/09/23 04/10/24 History mg-50 mg-5 mg-300 mg capsule (B Complex Plus Vitamin C) Have you fallen in the past year?: No PFSH Medical History Hx of labyrinthitis Frequent headaches History of fracture of tibia Cataracts, bilateral History of kidney stones Palpitations PVC's (premature ventricular contractions) Psoriasis COREY (obstructive sleep apnea) Irritable bowel syndrome (IBS) Hirsutism GERD (gastroesophageal reflux disease) Diverticulosis Diaphragmatic hernia Cystocele Hyperlipidemia Lichen sclerosus et atrophicus Rectocele Osteoporosis Diverticulitis History of psoriasis Obesity Surgical History History of colonoscopy History of right breast biopsy Disorder of uvula History of tubal ligation H/O dilation and curettage history of surgery for right and left nut feeder History of tonsillectomy History of bilateral cataract extraction Family History Brother CVA (cerebral vascular accident) Cancer bladder Mother Thyroid disorder Adult idiopathic generalized osteoporosis Skin cancer Cancer bladder,lymphoma Alzheimer's disease Myocardial infarction, Onset Age: 62 Father Cancer lung Hypertension Son , Age 45October Myocardial infarction, Onset Age: 45 at 45 Social History Smoking Status: Never smoker alcohol intake: current alcohol intake frequency: holidays/special occasions only Alcohol type: wine details: social substance use type: does not use caffeine: Yes what type of physical activity do you participate in: walking seatbelt use: always do you feel safe at home: Yes additional social history: Chris- Both are Retired HPI HPI Chief Complaint: 6 m fu Details: TONNY HILLIARD, is a 74 F who presents to the office today for 6-month follow-up. Patient is a 74-year-old female who has a history of hyperlipidemia on atorvastatin, also on zoledronic acid, calcium with vitamin D, additional vitamin D 1000 units daily. She takes turmeric as a supplement. Generally speaking has been doing prett (more content not included)... Normal [facility] Cervical or vagninal specime n microscopic examination by cytology stain (reported asOrdered By: Jessica Dale on 08-01-2023 Cytology report Cyto stain Doc (Cvx/Vag) Comment . [facility] Comment on above: The Pap smear is a s creening test designed to aid in thedetection of premalignant and malignant conditions of theuterine cervix. It is not a diagnostic procedure andshould not be used as the sole means of detecting cervicalcancer. Both false-positive and false-negative reports dooccur. Laboratory - CytologyOrdered By: Jessica Dale on 08-01-2023 Petrol Tanker Driver Cyto stain Nom (Cvx/Vag) [ID] Comment . [facility] Comment on above: Hermilo Ahumada totechnologist (ASCP) Laboratory - Miscellaneous t estsOrdered By: Jessica Dale on 08-01-2023 Service comment (Unsp spec) [Interp] . . [facility] No Panel InformationOrdered By: Jessica Dale on 08-01-2023 Human Papillomavirus Screen Comment . [facility] Comment on above: The HPV DNA reflex c jeanna were not met with this specimenresult therefore, no HPV testing was performed.Performed at: [address] [id number] Director: Aliyah Hill MD, Phone: [phone] Thin prep Papanicolaou smear with manual screeningOrdered By: Jessica Dale on 08-01-2023 Thin prep Papanicolaou smear with manual screening Comment . [facility] Comment on above: NEGATIVE FOR INTRAEP ITHELIAL LESION OR MALIGNANCY. This liquid based Th inPrep(R) pap test was screened withthe use of an image guided system. Absolute lymphocyte countOrd ered By: Manda Castellon on 06-14-2023 Lymphocytes Auto (Unsp spec) [#/Vol] 2.00 10*3/uL 0.83-4.[address] [facility] Automated lymphocyte count a s percentage of total leukocytesOrdered By: Manda Castellon on 06-14-2023 Lymphocytes/100 WBC Auto (Unsp spec) 23.4 % 19-[address] [facility] Basophil percentageOrdered B y: Manda Castellon on 06-14-2023 Basophils/100 WBC (Bld) 0.7 % 0-1 [facility] Bilirubin [Mass/Vol] 0.80 mg/dL 0.20-1.[address] [facility] Comment on above: For patients on eltr ombopag therapy, use of Dimension Salix TBIL is not recommended. Chloride [Moles/Vol] 112 mmol/L 98-[address] [facility] Eosinophils/100 WBC (Bld) 2.0 % 0-[address] [facility] Glucose [Mass/Vol] 101 mg/dL 74-106 [facility] Comment on above: Fasting Glucose resu lt from 100 to 125 mg/dL suggests IMPAIRED HOMEOSTASIS per A.D.A. criteria. Hemoglobin (Bld) [Mass/Vol] 14.4 g/dL 12.0-15.[address] [facility] Monocytes/100 WBC (Bld) 8.3 % 0-10 [facility] Neutrophils (Bld) [#/Vol] 5.5 10*3/uL 2.0-7.[address] [facility] Neutrophils/100 WBC (Bld) 64.7 % 47-[address] [facility] Potassium [Moles/Vol] 3.8 mmol/L 3.5-5.1 [facility] Protein [Mass/Vol] 6.3 g/dL 6.4-8.2 [facility] Sodium [Moles/Vol] 139 mmol/L 136-145 [facility] WBC (Bld) [#/Vol] 8.5 10*3/uL 4.4-11.0 [facility] Basophil percentageOrdered B y: Dereje Salvador on 06-14-2023 Cholesterol [Mass/Vol] 139 mg/dL <200 [facility] Comment on above: <200 mg/dL Desirable 200-240 mg/dL Borderline >240 mg/dL High Risk Triglyceride [Mass/Vol] 96 mg/dL <199 [facility] Comment on above: The drugs N-Acetylcy steine and Metamizole may falsely depress this assay.Serum Triglycerides Reference Interval Normal <150 mg/dL Borderline high 150 - 199 mg/dL High 200 - 499 mg/dL Very High > or = 500 mg/dL Determination of erythrocyte mean corpuscular volume (MCV)Ordered By: Manda Castellon on 06-14-2023 MCV (RBC) [Entitic vol] 85.6 fL 81-99 [facility] Direct bilirubinOrdered By: Manda Castellon on 06-14-2023 Bilirubin.direct [Mass/Vol] 0.22 mg/dL 0.00-0.[address] [facility] Erythrocyte distribution wid th ratioOrdered By: Manda Castellon on 06-14-2023 Erythrocyte distribution width (RBC) [Ratio] 13.6 % 11.6-14.[address] [facility] Erythrocyte distribution wid th standard deviationOrdered By: Manda Castellon on 06-14-2023 Erythrocyte distribution width (RBC) [Entitic vol] 42.5 fL 35.1-43.[address] [facility] Erythrocyte sedimentation ra teOrdered By: Manda Castellon on 06-14-2023 ESR (Bld) [Velocity] 2 mm/h 0-[address] [facility] Hematocrit Auto (Bld) [Volum e fraction]Ordered By: Manda Castellon on 06-14-2023 Hematocrit (Bld) [Volume fraction] 44.7 % 37-[address] [facility] Immature granulocytes/100 WB C Auto (Bld)Ordered By: Manda Castellon on 06-14-2023 Immature granulocytes/100 WBC (Bld) 0.900 % 0.0-0.[address] [facility] Comment on above: IG% - Immature Granu locytes (promyelocytes, myelocytes and metamyelocytes) > 1% indicates that a LEFT SHIFT is Present. Laboratory - Chemistry and C hemistry - challengeOrdered By: Manda Castellon on 06-14-2023 Albumin/Globulin [Mass ratio] 1.0 {ratio} 0.9-2.[address] [facility] ALP [Catalytic activity/Vol] 71 U/L 45-[address] [facility] ALT [Catalytic activity/Vol] 26 U/L 13-[address] [facility] CO2 [Moles/Vol] 25.0 mmol/L 21.0-32.[address] [facility] Globulin (S) [Mass/Vol] 3.2 g/dL 2.2-4.2 [facility] Urea nitrogen/Creatinine [Mass ratio] 10.5 mg/mg 10-[address] [facility] Laboratory - Chemistry and C hemistry - challengeOrdered By: Dereje Salvador on 06-14-2023 Cholesterol in HDL [Mass/Vol] 41 mg/dL >[address] [facility] Comment on above: The drugs N-Acetylcy steine and Metamizole may falsely depress this assay. Reference Range HDL <40 mg/dL Low HDL Cholesterol HDL >or= 60 mg/dL High HDL Cholesterol Cholesterol in LDL [Mass/Vol] 79 mg/dL 0-[address] [facility] Laboratory - Hematology and Cell countsOrdered By: Manda Castellon on 06-14-2023 MCH (RBC) [Entitic mass] 27.6 pg 27.0-32.[address] [facility] MCHC (RBC) [Mass/Vol] 32.2 g/dL 32-36 [facility] Nucleated RBC/100 WBC (Bld) [Ratio] 0 % 0-[address] [facility] Platelet mean volume (Bld) [Entitic vol] 9.8 fL 6.2-12.[address] [facility] Platelets (Bld) [#/Vol] 269 10*3/uL 150-[address] [facility] No Panel InformationOrdered By: Manda Castellon on 06-14-2023 Anti-Nuclear Antibody Screen Negative Negative [facility] Comment on above: Performed at: [address] [place] [id number] Director: Zach Ritter PhD, Phone: [phone] C-Reactive Protein Extended Range 5.92 mg/L 0.0-3.[address] [facility] Comment on above: C-Reactive Protein ( CRP) provides useful information for thediagnosis, therapy and monitoring of inflammatory processesand associated diseases. For the evaluation of Relative Riskfor Cardiovascular Disease, a High Sensitivity CRP (HSCRP)should be ordered. Centromere B Antibody Not Reportable [facility] Estimated GFR (MDRD) Amer 96 mL/min >[address] [facility] Comment on above: GFR Calc Estimated GFR (MDRD) Non-Af Amer 79 mL/min >[address] [facility] Comment on above: Non- GFR Calc Free Triiodothyronine (T3) pg/dL 2.3 pg/mL 2.18-3.[address] [facility] FEDERICO-1 Antibody Not Reportable [facility] LEAD BI DEVELOPER Antibody Not Reportable [facility] SM Antibody Not Reportable [facility] SS-A/Ro IgG Antibody Not Reportable [facility] SS-B/La IgG Antibody Not Reportable [facility] Vitamin D 25-Hydroxy 38.0 ng/mL [facility] Comment on above: Vitamin D 25(OH) Sta tus Range Deficiency <20 ng/mL (50nmol/L) Insufficiency 20 - 30 ng/mL (50 - 75 nmol/L) Sufficiency 30 - 100 ng/mL (75 - 250 nmol/L) Toxicity >100 ng/mL (>250 nmol/L) No Panel InformationOrdered By: Dereje Salvador on 06-14-2023 VLDL Cholesterol 19 mg/dL 5-[address] [facility] RBC Auto (Bld) [#/Vol]Ordere d By: Manda Castellon on 06-14-2023 RBC (Bld) [#/Vol] 5.22 10*6/uL 4.2-5.4 [facility] Serum DNA double strand anti body assay (units/volume)Ordered By: Manda Castellon on 06-14-2023 DNA double strand Ab Qn (S) Not Reportable [facility] Serum Scl-70 antibody assay (units/volume)Ordered By: Manda Castellon on 06-14-2023 SCL-70 extractable nuclear Ab Qn (S) Not Reportable [facility] Serum or plasma calcium [place] urement (mass/volume)Ordered By: Manda Castellon on 06-14-2023 Calcium [Mass/Vol] 8.7 mg/dL 8.5-10.1 [facility] Serum or plasma creatinine m easurement (mass/volume)Ordered By: Manda Castellon on 06-14-2023 Creatinine [Mass/Vol] 0.76 mg/dL 0.55-1.02 [facility] Comment on above: The validity of the calculated GFR & GFRAA in patients over 70 years has not been determined. Clinical correlation is essential. Serum or plasma thyroid stim ulating hormone (TSH) measurement (units/volume)Ordered By: Manda Castellon on 06-14-2023 TSH Qn 1.98 uIU/mL 0.358-3.[address] [facility] Serum or plasma urea nitroge n measurement (mass/volume)Ordered By: Manda Castellon on 06-14-2023 Urea nitrogen [Mass/Vol] 8 mg/dL 7-[address] [facility] Thin prep Papanicolaou smear with manual screeningOrdered By: Manda Castellon on 06-14-2023 Thin prep Papanicolaou smear with manual screening 3.1 g/dL 3.2-5.[address] [facility] Thin prep Papanicolaou smear with manual screening 17 U/L 15-[address] [facility] Thin prep Papanicolaou smear with manual screening 2 5-[address] [facility] Thin prep Papanicolaou smear with manual screening 1.23 ng/dL 0.76-1.[address] [facility] No Panel Informationon 06-02 Influenza Types A,B Rapid (Clinic) Pos FLU A &Neg FLU B [facility] POC SARS CoV-2 Antigen Negative [facility] Basophil percentageOrdered B y: Dereje Salvador on 12-01-2022 Bilirubin [Mass/Vol] 0.60 mg/dL 0.20-1.[address] [facility] Comment on above: For patients on eltr ombopag therapy, use of Dimension Salix TBIL is not recommended. Cholesterol [Mass/Vol] 162 mg/dL <200 [facility] Comment on above: <200 mg/dL Desirable 200-240 mg/dL Borderline >240 mg/dL High Risk Protein [Mass/Vol] 6.5 g/dL 6.4-8.2 [facility] Triglyceride [Mass/Vol] 71 mg/dL <199 [facility] Comment on above: The drugs N-Acetylcy steine and Metamizole may falsely depress this assay.Serum Triglycerides Reference Interval Normal <150 mg/dL Borderline high 150 - 199 mg/dL High 200 - 499 mg/dL Very High > or = 500 mg/dL Direct bilirubinOrdered By: Dereje Salvador on 12-01-2022 Bilirubin.direct [Mass/Vol] 0.16 mg/dL 0.00-0.[address] [facility] Laboratory - Chemistry and C hemistry - challengeOrdered By: Dereje Salvador on 12-01-2022 ALP [Catalytic activity/Vol] 92 U/L 45-[address] [facility] ALT [Catalytic activity/Vol] 25 U/L 13-[address] [facility] Globulin (S) [Mass/Vol] 3.4 g/dL 2.2-4.2 [facility] Serum or plasma albumin j[place] urement (mass/volume)Ordered By: Dereje Salvador on 12-01-2022 Albumin [Mass/Vol] 3.1 g/dL 3.2-5.0 [facility] Serum or plasma cholesterol in HDL measurement (mass/volume)Ordered By: Dereje Salvador on 12-01-2022 Cholesterol in HDL [Mass/Vol] 55 mg/dL >[address] [facility] Comment on above: The drugs N-Acetylcy steine and Metamizole may falsely depress this assay. Reference Range HDL <40 mg/dL Low HDL Cholesterol HDL >or= 60 mg/dL High HDL Cholesterol Serum or plasma cholesterol in VLDL measurement (mass/volume)Ordered By: Dereje Salvador on 12-01-2022 Cholesterol in VLDL [Mass/Vol] 14 mg/dL 5-[address] [facility] Serum or plasma low density lipoprotein (LDL) cholesterol measurement (mass/volume)Ordered By: Dereje Salvador on 12-01-2022 Cholesterol in LDL [Mass/Vol] 93 mg/dL 0-[address] [facility] Thin prep Papanicolaou smear with manual screeningOrdered By: Dereje Salvador on 12-01-2022 Thin prep Papanicolaou smear with manual screening 22 U/L 15-[address] [facility] Basophil percentageOrdered B y: Dr. Sierra on 07-19-2022 Bilirubin [Mass/Vol] 0.90 mg/dL 0.20-1.[address] [facility] Comment on above: For patients on eltr ombopag therapy, use of Dimension Salix TBIL is not recommended. Chloride [Moles/Vol] 108 mmol/L 98-[address] [facility] Glucose [Mass/Vol] 97 mg/dL 74-106 [facility] Potassium [Moles/Vol] 3.7 mmol/L 3.5-5.1 [facility] Protein [Mass/Vol] 6.7 g/dL 6.4-8.2 [facility] Sodium [Moles/Vol] 142 mmol/L 136-145 [facility] Laboratory - Chemistry and C hemistry - challengeOrdered By: Dr. Sierra on 07-19-2022 ALP [Catalytic activity/Vol] 94 U/L 45-[address] [facility] ALT [Catalytic activity/Vol] 27 U/L 13-[address] [facility] CO2 [Moles/Vol] 29.0 mmol/L 21.0-32.[address] [facility] Globulin (S) [Mass/Vol] 3.5 g/dL 2.2-4.2 [facility] Urea nitrogen/Creatinine [Mass ratio] 16.8 mg/mg 10-[address] [facility] No Panel InformationOrdered By: Dr. Sierra on 07-19-2022 Estimated GFR (MDRD) Amer 87 mL/min >[address] [facility] Comment on above: GFR Calc Estimated GFR (MDRD) Non-Af Amer 72 mL/min >[address] [facility] Comment on above: Non- GFR Calc Vitamin D 25-Hydroxy 34.2 ng/mL [facility] Comment on above: Vitamin D 25(OH) Sta tus Range Deficiency <20 ng/mL (50nmol/L) Insufficiency 20 - 30 ng/mL (50 - 75 nmol/L) Sufficiency 30 - 100 ng/mL (75 - 250 nmol/L) Toxicity >100 ng/mL (>250 nmol/L) Serum or plasma albumin [place] urement (mass/volume)Ordered By: Dr. Sierra on 07-19-2022 Albumin [Mass/Vol] 3.2 g/dL 3.2-5.0 [facility] Serum or plasma albumin/glob ulin mass ratioOrdered By: Dr. Sierra on 07-19-2022 Albumin/Globulin [Mass ratio] 0.9 {ratio} 0.9-2.[address] [facility] Serum or plasma calcium [place] urement (mass/volume)Ordered By: Dr. Sierra on 07-19-2022 Calcium [Mass/Vol] 9.2 mg/dL 8.5-10.1 [facility] Serum or plasma creatinine m easurement (mass/volume)Ordered By: Dr. Sierra on 07-19-2022 Creatinine [Mass/Vol] 0.83 mg/dL 0.55-1.02 [facility] Comment on above: The validity of the calculated GFR & GFRAA in patients over 70 years has not been determined. Clinical correlation is essential. Serum or plasma urea nitroge n measurement (mass/volume)Ordered By: Dr. Sierra on 07-19-2022 Urea nitrogen [Mass/Vol] 14 mg/dL 7-[address] [facility] Thin prep Papanicolaou smear with manual screeningOrdered By: Dr. Sierra on 07-19-2022 Thin prep Papanicolaou smear with manual screening 20 U/L 15-[address] [facility] Thin prep Papanicolaou smear with manual screening 5 5-[address] [facility] Absolute lymphocyte counton 03-07-2022 Lymphocytes Auto (Unsp spec) [#/Vol] 2.38 10*3/uL 0.83-4.[address] [facility] Work Phone: Basophil percentageon 2021 Basophil percentage 0 SEEN /hpf 0-[address] [facility] Work Phone: Basophils/100 WBC (Bld) 0.4 % 0-1 [facility] Work Phone: Bilirubin [Mass/Vol] 1.10 mg/dL 0.20-1.[address] [facility] Work Phone: Comment on above: For patients on eltr ombopag therapy, use of Dimension Salix TBIL is not recommended. Chloride [Moles/Vol] 108 mmol/L 98-[address] [facility] Work Phone: Eosinophils/100 WBC (Bld) 1.8 % 0-[address] [facility] Work Phone: Glucose [Mass/Vol] 107 mg/dL 74-106 [facility] Work Phone: [phone] Comment on above: Fasting Glucose resu lt from 100 to 125 mg/dL suggests IMPAIRED HOMEOSTASIS per A.D.A. criteria. Neutrophils (Bld) [#/Vol] 9.0 10*3/uL 2.0-7.[address] [facility] Work Phone: [phone] Neutrophils/100 WBC (Bld) 71.3 % 47-[address] [facility] Work Phone: [phone] Potassium [Moles/Vol] 4.1 mmol/L 3.5-5.1 [facility] Work Phone: Protein [Mass/Vol] 7.0 g/dL 6.4-8.2 [facility] Work Phone: Sodium [Moles/Vol] 141 mmol/L 136-145 [facility] Work Phone: WBC (Bld) [#/Vol] 12.6 10*3/uL 4.4-11.0 [facility] Work Phone: Bilirubin Test strip Ql (U)o n 03-07-2022 Bilirubin Ql (U) Negative Negative [facility] Work Phone: Blood erythrocytes count (nu mber/volume)on 03-07-2022 RBC (Bld) [#/Vol] 5.35 10*6/uL 4.2-5.4 [facility] Work Phone: Blood hemoglobin measurement (mass/volume)on 03-07-2022 Hemoglobin (Bld) [Mass/Vol] 15.5 g/dL 12.0-15.[address] [facility] Work Phone: Blood lymphocytes/100 leukoc yteson 03-07-2022 Lymphocytes/100 WBC (Bld) 18.9 % 19-[address] [facility] Work Phone: Blood monocytes/100 leukocyt eson 03-07-2022 Monocytes/100 WBC (Bld) 7.3 % 0-10 [facility] Work Phone: Blood platelet mean volumeon 03-07-2022 Platelet mean volume (Bld) [Entitic vol] 9.6 fL 6.2-12.[address] [facility] Work Phone: Determination of erythrocyte mean corpuscular volume (MCV)on 03-07-2022 MCV (RBC) [Entitic vol] 86.0 fL 81-99 [facility] Work Phone: Hematocrit Auto (Bld) [Volum e fraction]on 03-07-2022 Hematocrit (Bld) [Volume fraction] 46.0 % 37-[address] [facility] Work Phone: Ketones Test strip Ql (U)on 03-07-2022 Ketones Ql (U) 5 mg/dl Negative [facility] Work Phone: Laboratory - Chemistry and C hemistry - challengeon 03-07-2022 ALP [Catalytic activity/Vol] 78 U/L 45-[address] [facility] [facility] Work Phone: ALT [Catalytic activity/Vol] 28 U/L 13-[address] [facility] Work Phone: CO2 [Moles/Vol] 28.0 mmol/L 21.0-32.[address] [facility] Work Phone: Globulin (S) [Mass/Vol] 3.3 g/dL 2.2-4.2 [facility] Work Phone: Lipase [Catalytic activity/Vol] 84 U/L 73-[address] [facility] Work Phone: Urea nitrogen/Creatinine [Mass ratio] 10.0 mg/mg 10-[address] [facility] Work Phone: Laboratory - Hematology and Cell countson 03-07-2022 Erythrocyte distribution width (RBC) [Entitic vol] 43.9 fL 35.1-43.[address] [facility] Work Phone: Erythrocyte distribution width (RBC) [Ratio] 13.9 % 11.6-14.[address] [facility] Work Phone: Immature granulocytes/100 WBC (Bld) 0.300 % 0.0-0.[address] [facility] Work Phone: Comment on above: IG% - Immature Granu locytes (promyelocytes, myelocytes and metamyelocytes) > 1% indicates that a LEFT SHIFT is Present. MCH (RBC) [Entitic mass] 29.0 pg 27.0-32.[address] [facility] Work Phone: Nucleated RBC/100 WBC (Bld) [Ratio] 0 % 0-[address] [facility] Work Phone: MCHC Auto (RBC) [Mass/Vol]on 03-07-2022 MCHC (RBC) [Mass/Vol] 33.7 g/dL 32-36 [facility] Work Phone: Mucus LM Ql (Urine sed)on Mucus Ql (Urine sed) 0 SEEN /hpf [facility] Work Phone: Nitrite Test strip Ql (U)on 03-07-2022 Nitrite Ql (U) Negative Negative [facility] Work Phone: No Panel Informationon 03-07 Estimated Creatinine Clearance Calc 50.84 ml/min [facility] Work Phone: Estimated GFR (MDRD) Amer 79 mL/min >[address] [facility] Work Phone: Comment on above: GFR Calc Estimated GFR (MDRD) Non-Af Amer 66 mL/min >[address] [facility] Work Phone: Comment on above: Non- GFR Calc Platelets bldon 03-07-2022 Platelets (Bld) [#/Vol] 281 10*3/uL 150-[address] [facility] Work Phone: Protein Test strip Ql (U)on 03-07-2022 Protein Ql (U) Negative Negative [facility] Work Phone: Serum or plasma albumin [place] urement (mass/volume)on 03-07-2022 Albumin [Mass/Vol] 3.7 g/dL 3.2-5.0 [facility] Work Phone: Serum or plasma albumin/glob ulin mass ratioon 03-07-2022 Albumin/Globulin [Mass ratio] 1.1 {ratio} 0.9-2.[address] [facility] Work Phone: Serum or plasma calcium [place] urement (mass/volume)on 03-07-2022 Calcium [Mass/Vol] 9.9 mg/dL 8.5-10.1 [facility] Work Phone: Serum or plasma creatinine m easurement (mass/volume)on 03-07-2022 Creatinine [Mass/Vol] 0.90 mg/dL 0.55-1.02 [facility] Work Phone: Comment on above: The validity of the calculated GFR & GFRAA in patients over 70 years has not been determined. Clinical correlation is essential. Serum or plasma urea nitroge n measurement (mass/volume)on 03-07-2022 Urea nitrogen [Mass/Vol] 9 mg/dL 7-[address] [facility] Work Phone: Squamous epithelial cells de tection in urine sediment by light microscopyon 03-07-2022 Epithelial cells.squamous LM Ql (Urine sed) 0 SEEN /hpf 5-[address] [facility] Work Phone: Thin prep Papanicolaou smear with manual screeningon 03-07-2022 Thin prep Papanicolaou smear with manual screening 18 U/L 15-[address] [facility] Work Phone: Thin prep Papanicolaou smear with manual screening 5 5-[address] [facility] Work Phone: Urine blood detectionon 10-3 RBC Ql (U) Negative Negative [facility] Work Phone: RBC Ql (U) 0 SEEN /hpf 0-[address] [facility] Work Phone: Urine clarityon 03-07-2022 Clarity (U) Clear Clear [facility] Work Phone: Urine color determinationon 03-07-2022 Color (U) Yellow Yellow [facility] Work Phone: Urine glucose detectionon Glucose Ql (U) Normal mg/dl Normal [facility] Work Phone: Urine leukocyte esterase det ection by dipstickon 03-07-2022 Leukocyte esterase Test strip Ql (U) Negative Negative [facility] Work Phone: Urine pHon 03-07-2022 pH (U) 6.5 [pH] 5.0 - 8.[address] [facility] Work Phone: Urine sediment bacteria coun t by microscopy (number/high power field)on 03-07-2022 Bacteria LM.HPF (Urine sed) [#/Area] 0 /[HPF] None Seen [facility] Work Phone: Urine specific gravity measu rementon 03-07-2022 Specific gravity (U) [Rel density] 1.010 1.002-1.[address] [facility] Work Phone: Urobilinogen Auto test strip Ql (U)on 03-07-2022 Urobilinogen Ql (U) Normal mg/dl Normal [facility] Work Phone: CNNURSEon 07-29-2020 CNNURSE Nurse Visit (ALLY) TONNY HILLIARD ([id number]) 1950 F Date Time Provider Department 07[facility] During your visit today, we recorded the following information about you: Allergies As of Date: 07/29/2020 Noted Allergy Reaction CIPROFLOXACIN 09/27/2013 14 - Other: See Comments Comments: Myalgia CRESTOR (ROSUVASTATIN CALCIUM) 01/31/2005 5 - Intolerance Comments: MUSCLE ACHES FOSAMAX (ALENDRONATE SODIUM) 03/23/2018 14 - Other: See Comments Comments: Bone aches per office visit note on 03/20/2018 MORPHINE 01/31/2005 8 - GI Upset Comments: NAUSEA TYLENOL-CODEINE #3 (ACETAMINOPHEN*01/31 5 - Intolerance 8 - GI Upset Comments: NAUSEA AND DIZZINESS WELLBUTRIN (BUPROPION HCL) 01/31/2005 5 - Intolerance Comments: GOOFY Date Reviewed: 12/09/2019 Reviewed by: Rosalie Miranda Ma - Fully Assessed Order(s):NextVR SARS-COV-2 VACCINE 2D DOSE APPT [[id number]] Order #: [id number] Prescriptions as of 07/29/2020 Sig: ALENDRONATE 70 MG TABLET Take 1 tablet by mouth one ti* FLUTICASONE PROPIONATE 50 MCG* Use 2 Sprays in each nostril * ATORVASTATIN 20 MG TABLET Take 1 tablet by mouth once d* JOINT SUPPORT ORAL Take by mouth. ZINC 50 MG TABLET Take 1 tablet by mouth once d* VITAMIN B COMPLEX TABLET Take 1 tablet by mouth once d* ALEVE ORAL Take by mouth. OTC PRODUCT CENTRUM SILVER WOMEN ORAL Take by mouth. CALCIUM CITRATE + D ORAL Take by mouth. CHOLECALCIFEROL (VITAMIN D3) * Take 1,000 Units by mouth onc* METRONIDAZOLE 0.75 % TOPICAL * Insert 1 applicator at bedtim* DOXYCYCLINE HYCLATE 20 MG TAB* Take 1 tablet by mouth twice * CLOBETASOL 0.05 % SCALP SOLUT* Apply to active spots of psor* KETOCONAZOLE 2 % SHAMPOO Shampoo scalp (with 5-10min l* MULTI-VITAMIN ORAL Take by mouth. IBUPROFEN ORAL Take by mouth as needed. OTC PRODUCT [place] 3: Take one tablet red* Problem List As Of Date 07/29/2020 Noted Resolved Mixed hyperlipidemia [E78.2] 04/04/2005 Palpitations [...] (obstructive sleep apnea) [G47.33] 06/09/2016 12/27/2016 Encounter Status:[facility] CNNURSEon 07-08-2020 CNNURSE Nurse Visit (COVAMD) TONNY HILLIARD ([id number]) 1950 F Date Time Provider Department 07/08/20 1:40 PM COVID VACCINE VIVIAN CANALES During your visit today, we recorded the following information about you: Referring Provider: SELF [[id number]] Allergies As of Date: 07/08/2020 Noted Allergy Reaction CIPROFLOXACIN 09/27/2013 14 - Other: See Comments Comments: Myalgia CRESTOR (ROSUVASTATIN CALCIUM) 01/31/2005 5 - Intolerance Comments: MUSCLE ACHES FOSAMAX (ALENDRONATE SODIUM) 03/23/2018 14 - Other: See Comments Comments: Bone aches per office visit note on 03/20/2018 MORPHINE 01/31/2005 8 - GI Upset Comments: NAUSEA TYLENOL-CODEINE #3 (ACETAMINOPHEN*01/31 5 - Intolerance 8 - GI Upset Comments: NAUSEA AND DIZZINESS WELLBUTRIN (BUPROPION HCL) 01/31/2005 5 - Intolerance Comments: GOOFY Date Reviewed: 12/09/2019 Reviewed by: Rosalie Miranda Ma - Fully Assessed Order(s):Keenjar COVID-19 VACCINE [[id number]] Order #: [id number] NextVR SARS-COV-2 VACCINE 2D DOSE APPT [[id number]] Order #: [id number] FUTURE Prescriptions as of 07/08/2020 Sig: ALENDRONATE 70 MG TABLET Take 1 tablet by mouth one ti* FLUTICASONE PROPIONATE 50 MCG* Use 2 Sprays in each nostril * ATORVASTATIN 20 MG TABLET Take 1 tablet by mouth once d* JOINT SUPPORT ORAL Take by mouth. ZINC 50 MG TABLET Take 1 tablet by mouth once d* VITAMIN B COMPLEX TABLET Take 1 tablet by mouth once d* ALEVE ORAL Take by mouth. OTC PRODUCT CENTRUM SILVER WOMEN ORAL Take by mouth. CALCIUM CITRATE + D ORAL Take by mouth. CHOLECALCIFEROL (VITAMIN D3) * Take 1,000 Units by mouth onc* METRONIDAZOLE 0.75 % TOPICAL * Insert 1 applicator at bedtim* DOXYCYCLINE HYCLATE 20 MG TAB* Take 1 tablet by mouth twice * CLOBETASOL 0.05 % SCALP SOLUT* Apply to active spots of psor* KETOCONAZOLE 2 % SHAMPOO Shampoo scalp (with 5-10min l* MULTI-VITAMIN ORAL Take by mouth. IBUPROFEN ORAL Take by mouth as needed. OTC PRODUCT [place] 3: Take one tablet red* Problem List As Of Date 07/08/2020 Noted Resolved Mixed hyperlipidemia [E78.2] 04/04/2005 Palpitations [...] (obstructive sleep apnea) [G47.33] 06/09/2016 12/27/2016 Encounter Status:Open [facility] Vital Signs Date Time Vital Sign Value Performing Clinician Keyla almaguer 12-19-2024 08:21-0400 Body height 165.[address] Manda Castellon MD Work Phone: [facility] 12-19-2024 08:21-0400 Body mass index (BMI) [Ratio] 37.5 kg/m2 Dr. Manda Castellon MD Work Phone: [facility] 12-19-2024 08:21-0400 Body temperature 98 [degF] Dr. Manda Castellon MD Work Phone: [facility] 12-19-2024 08:21-0400 Body weight 102.[address] Manda Castellon MD Work Phone: [facility] 12-19-2024 08:21-0400 Diastolic blood pressure 78 mm[Hg] Dr. Manda Castellon MD Work Phone: [facility] 12-19-2024 08:21-0400 Heart rate 73 /min Dr. Manda Castellon MD Work Phone: [facility] 12-19-2024 08:21-0400 Respiratory rate 16 /min Dr. Manda Castellon MD Work Phone: [facility] 12-19-2024 08:21-0400 SaO2% (BldA) [Mass fraction] 98 % Dr. Manda Castellon MD Work Phone: [facility] 12-19-2024 08:21-0400 Systolic blood pressure 126 mm[Hg] Dr. Manda Castellon MD Work Phone: [facility] 06-13-2024 08:59-0500 Body height 165.[address] Manda Castellon MD Work Phone: [facility] 06-13-2024 08:59-0500 Body mass index (BMI) [Ratio] 37.8 kg/m2 Dr. Manda Castellon MD Work Phone: [facility] 06-13-2024 08:59-0500 Body weight 102.[address] Manda Castellon MD Work Phone: [facility] 06-13-2024 08:59-0500 Diastolic blood pressure 78 mm[Hg] Dr. Manda Castellon MD Work Phone: [facility] 06-13-2024 08:59-0500 Heart rate 68 /min Dr. Manda Castellon MD Work Phone: [facility] 06-13-2024 08:59-0500 SaO2% (BldA) [Mass fraction] 97 % Dr. Manda Castellon MD Work Phone: [facility] 06-13-2024 08:59-0500 Systolic blood pressure 131 mm[Hg] Dr. Manda Castellon MD Work Phone: [facility] 04-10-2024 09:08-0500 Body mass index (BMI) [Ratio] 37.5 kg/m2 Dr. Manda Castellon MD Work Phone: [facility] 04-10-2024 09:08-0500 Body temperature 98.6 [degF] Dr. Manda Castellon MD Work Phone: [facility] 04-10-2024 09:08-0500 Body weight 102.[address] Manda Castellon MD Work Phone: [facility] 04-10-2024 09:08-0500 Diastolic blood pressure 70 mm[Hg] Dr. Manda Castellon MD Work Phone: [facility] 04-10-2024 09:08-0500 Heart rate 67 /min Dr. Manda Castellon MD Work Phone: [facility] 04-10-2024 09:08-0500 Respiratory rate 16 /min Dr. Manda Castellon MD Work Phone: [facility] 04-10-2024 09:08-0500 SaO2% (BldA) [Mass fraction] 97 % Dr. Manda Castellon MD Work Phone: [facility] 04-10-2024 09:08-0500 Systolic blood pressure 148 mm[Hg] Dr. Manda Castellon MD Work Phone: [facility] 08-04-2023 08:45-0400 Body temperature 96.7 [degF] Dr. Manda Castellon Work Phone: [facility] 08-04-2023 08:45-0400 Diastolic blood pressure 52 mm[Hg] Dr. Manda Castellon Work Phone: [facility] 08-04-2023 08:45-0400 Heart rate 50 /min Dr. Manda Castellon Work Phone: [facility] 08-04-2023 08:45-0400 Respiratory rate 16 /min Dr. Manda Castellon Work Phone: [facility] 08-04-2023 08:45-0400 Systolic blood pressure 120 mm[Hg] Dr. Manda Castellon Work Phone: [facility] 08-04-2023 08:09-0400 Body height 165.[address] Manda Castellon Work Phone: [facility] 08-04-2023 08:09-0400 SaO2% (BldA) [Mass fraction] 100 % Dr. Manda Castellon Work Phone: [facility] 08-01-2023 08:51-0400 Body mass index (BMI) [Ratio] 36.9 kg/m2 Dr. Manda Castellon Work Phone: [facility] 08-01-2023 08:51-0400 Body weight 100.[address] Manda Castellon Work Phone: [facility] 06-13-2023 08:49-0500 Body height 165.[address] Manda Castellon Work Phone: [facility] 06-13-2023 08:49-0500 Body mass index (BMI) [Ratio] 36.8 kg/m2 Dr. Manda Castellon Work Phone: [facility] 06-13-2023 08:49-0500 Body temperature 98.8 [degF] Dr. Manda Castellon Work Phone: [facility] 06-13-2023 08:49-0500 Body weight 100.[address] Manda Castellon Work Phone: [facility] 06-13-2023 08:49-0500 Diastolic blood pressure 78 mm[Hg] Dr. Manda Castellon Work Phone: [facility] 06-13-2023 08:49-0500 Heart rate 70 /min Dr. Manda Castellon Work Phone: [facility] 06-13-2023 08:49-0500 Respiratory rate 16 /min Dr. Manda Castellon Work Phone: [facility] 06-13-2023 08:49-0500 SaO2% (BldA) [Mass fraction] 97 % Dr. Manda Castellon Work Phone: [facility] 06-13-2023 08:49-0500 Systolic blood pressure 130 mm[Hg] Dr. Manda Castellon Work Phone: [facility] 06-02-2023 10:46-0500 Body mass index (BMI) [Ratio] 37.5 kg/m2 Dr. Manda Castellon Work Phone: [facility] 06-02-2023 10:46-0500 Body temperature 98.6 [degF] Dr. Manda Castellon Work Phone: [facility] 06-02-2023 10:46-0500 Body weight 102.[address] Manda Castellon Work Phone: [facility] 06-02-2023 10:46-0500 Diastolic blood pressure 70 mm[Hg] Dr. Manda Castellon Work Phone: [facility] 06-02-2023 10:46-0500 Heart rate 78 /min Dr. Manda Castellon Work Phone: [facility] 06-02-2023 10:46-0500 Respiratory rate 17 /min Dr. Manda Castellon Work Phone: [facility] 06-02-2023 10:46-0500 SaO2% (BldA) [Mass fraction] 96 % Dr. Manda Castellon Work Phone: [facility] 06-02-2023 10:46-0500 Systolic blood pressure 118 mm[Hg] Dr. Manda Castellon Work Phone: [facility] 04-10-2023 09:04-0500 Body mass index (BMI) [Ratio] 37.7 kg/m2 Dr. Manda Castellon Work Phone: [facility] 04-10-2023 09:04-0500 Body temperature 97.3 [degF] Dr. Manda Castellon Work Phone: [facility] 04-10-2023 09:04-0500 Body weight 102.[address] Manda Castellon Work Phone: [facility] 04-10-2023 09:04-0500 Diastolic blood pressure 78 mm[Hg] Dr. Manda Castellon Work Phone: [facility] 04-10-2023 09:04-0500 Heart rate 55 /min Dr. Manda Castellon Work Phone: [facility] 04-10-2023 09:04-0500 Respiratory rate 16 /min Dr. Manda Castellon Work Phone: [facility] 04-10-2023 09:04-0500 SaO2% (BldA) [Mass fraction] 96 % Dr. Manda Castellon Work Phone: [facility] 04-10-2023 09:04-0500 Systolic blood pressure 134 mm[Hg] Dr. Manda Castellon Work Phone: [facility] 11-30-2022 08:50-0400 Body height 165.[address] Manda Castellon Work Phone: [facility] 11-30-2022 08:50-0400 Body mass index (BMI) [Ratio] 37.3 kg/m2 Dr. Manda Castellon Work Phone: [facility] 11-30-2022 08:50-0400 Body weight 101.[address] Manda Castellon Work Phone: [facility] 11-30-2022 08:50-0400 Diastolic blood pressure 80 mm[Hg] Dr. Manda Castellon Work Phone: [facility] 11-30-2022 08:50-0400 Heart rate 62 /min Dr. Manda Castellon Work Phone: [facility] 11-30-2022 08:50-0400 Respiratory rate 18 /min Dr. Manda Castellon Work Phone: [facility] 11-30-2022 08:50-0400 SaO2% (BldA) [Mass fraction] 96 % Dr. Manda Castellon Work Phone: [facility] 11-30-2022 08:50-0400 Systolic blood pressure 129 mm[Hg] Dr. Manda Castellon Work Phone: [facility] 09-26-2022 08:19-0400 Body mass index (BMI) [Ratio] 35.6 kg/m2 Dr. Manda Castellon Work Phone: [facility] 09-26-2022 08:19-0400 Body temperature 97.8 [degF] Dr. Manda Castellon Work Phone: [facility] 09-26-2022 08:19-0400 Body weight 97.[address] Manda Castellon Work Phone: [facility] 09-26-2022 08:19-0400 Diastolic blood pressure 77 mm[Hg] Dr. Manda Castellon Work Phone: [facility] 09-26-2022 08:19-0400 Heart rate 64 /min Dr. Manda Castellon Work Phone: [facility] 09-26-2022 08:19-0400 Respiratory rate 16 /min Dr. Manda Castellon Work Phone: [facility] 09-26-2022 08:19-0400 SaO2% (BldA) [Mass fraction] 95 % Dr. Manda Castellon Work Phone: [facility] 09-26-2022 08:19-0400 Systolic blood pressure 125 mm[Hg] Dr. Manda Castellon Work Phone: [facility] 07-21-2022 11:31-0400 Body height 165.[address] Manda Castellon Work Phone: [facility] 07-21-2022 11:23-0400 Body mass index (BMI) [Ratio] 36.6 kg/m2 Dr. Manda Castellon Work Phone: [facility] 07-21-2022 11:23-0400 Body weight 99.[address] Manda Castellon Work Phone: [facility] 07-21-2022 11:23-0400 Diastolic blood pressure 77 mm[Hg] Dr. Manda Castellon Work Phone: [facility] 07-21-2022 11:23-0400 Systolic blood pressure 145 mm[Hg] Dr. Manda Castellon Work Phone: [facility] 05-19-2022 09:40-0500 Body mass index (BMI) [Ratio] 35.6 kg/m2 Dr. Manda Castellon Work Phone: [facility] 05-19-2022 09:40-0500 Body temperature 96.7 [degF] Dr. Manda Castellon Work Phone: [facility] 05-19-2022 09:40-0500 Body weight 97.[address] Manda Castellon Work Phone: [facility] 05-19-2022 09:40-0500 Diastolic blood pressure 80 mm[Hg] Dr. Manda Castellon Work Phone: [facility] 05-19-2022 09:40-0500 Heart rate 67 /min Dr. Manda Castellon Work Phone: [facility] 05-19-2022 09:40-0500 Respiratory rate 18 /min Dr. Manda Castellon Work Phone: [facility] 05-19-2022 09:40-0500 SaO2% (BldA) [Mass fraction] 92 % Dr. Manda Castellon Work Phone: [facility] 05-19-2022 09:40-0500 Systolic blood pressure 133 mm[Hg] Dr. Manda Castellon Work Phone: [facility] 05-18-2022 14:48-0500 Body mass index (BMI) [Ratio] 35 kg/m2 Dr. Manda Castellon Work Phone: [facility] 05-18-2022 14:48-0500 Body weight 97.[address] Manda Castellon Work Phone: [facility] 05-18-2022 14:48-0500 Diastolic blood pressure 83 mm[Hg] Dr. Manda Castellon Work Phone: [facility] 05-18-2022 14:48-0500 Heart rate 60 /min Dr. Manda Castellon Work Phone: [facility] 05-18-2022 14:48-0500 Respiratory rate 18 /min Dr. Manda Castellon Work Phone: [facility] 05-18-2022 14:48-0500 SaO2% (BldA) [Mass fraction] 99 % Dr. Manda Castellon Work Phone: [facility] 05-18-2022 14:48-0500 Systolic blood pressure 139 mm[Hg] Dr. Manda Castellon Work Phone: [facility] 03-07-2022 14:38-0400 Body height 166.[address] Manda Castellon Work Phone: [facility] Work Phone: 03-07-2022 14:38-0400 Body mass index (BMI) [Ratio] 35.2 kg/m2 Dr. Manda Castellon Work Phone: [facility] Work Phone: 03-07-2022 14:38-0400 Body temperature 97.8 [degF] Dr. Manda Castellon Work Phone: [facility] Work Phone: 03-07-2022 14:38-0400 Body weight 97.[address] Manda Castellon Work Phone: [facility] Work Phone: 03-07-2022 14:38-0400 Diastolic blood pressure 68 mm[Hg] Dr. Manda Castellon Work Phone: [facility] Work Phone: 03-07-2022 14:38-0400 Heart rate 67 /min Dr. Manda Castellon Work Phone: [facility] Work Phone: 03-07-2022 14:38-0400 Respiratory rate 18 /min Dr. Manda Castellon Work Phone: [facility] Work Phone: 03-07-2022 14:38-0400 SaO2% (BldA) [Mass fraction] 100 % Dr. Manda Castellon Work Phone: [facility] Work Phone: 03-07-2022 14:38-0400 Systolic blood pressure 141 mm[Hg] Dr. Manda Castellon Work Phone: [facility] Work Phone: 12-22-2021 08:48-0400 Body mass index (BMI) [Ratio] 38.2 kg/m2 Dr. Manda Castellon Work Phone: [facility] Work Phone: 12-22-2021 08:48-0400 Body temperature 96.7 [degF] Dr. Manda Castellon Work Phone: [facility] Work Phone: 12-22-2021 08:48-0400 Body weight 104.[address] Manda Castellon Work Phone: [facility] Work Phone: 12-22-2021 08:48-0400 Diastolic blood pressure 78 mm[Hg] Dr. Manda Castellon Work Phone: [facility] Work Phone: 12-22-2021 08:48-0400 Heart rate 70 /min Dr. Manda Castellon Work Phone: [facility] Work Phone: 12-22-2021 08:48-0400 Respiratory rate 16 /min Dr. Manda Castellon Work Phone: [facility] Work Phone: 12-22-2021 08:48-0400 SaO2% (BldA) [Mass fraction] 96 % Dr. Manda Castellon Work Phone: [facility] Work Phone: 12-22-2021 08:48-0400 Systolic blood pressure 120 mm[Hg] Dr. Manda Castellon Work Phone: [facility] Work Phone: Encounters Encounter Date Encounter Type Care Provider Facility Start: 01-14-2025 ambulatory Manda Castellon Facility :[facility] Start: 12-19-2024 End: 12-19-[address] Manda Castellon MD Work Phone: -Laboratory Start: 12-19-2024 End: 12-19-[address] Manda Castellno MD -Laboratory Work Phone: Start: 12-19-2024 End: 12-19-[address] Manda Castellon MD -[facility] Work Phone: Start: 12-19-2024 End: 12-19-[address] Manda Castellon MD Work Phone: -[facility] Start: 12-19-2024 End: 12-19-2024 ambulatory Manda Castellon Facility:[facility] Start: 08-16-2024 Encounter for gynecological examination (general) (routine) with abnormal findings Jessica Dale [facility] Start: 08-16-2024 End: 08-16-2024 ambulatory Jessica Dale Facility:[facility] Start: 08-09-2024 End: 08-09-[address] Manda Castellon MD Work Phone: [facility] Work Phone: Start: 08-09-2024 End: 08-09-[address] Jessica Dale MD -Outpatient Breast Imaging Work Phone: Start: 08-09-2024 End: 08-09-2024 ambulatory Jessica Dale Facility:[facility] Start: 07-04-2024 End: 07-04-[address] Manda Castellon MD Work Phone: [facility] Work Phone: Start: 07-04-2024 End: 07-04-2024 Patient encounter procedure Dereje COPELAND -Laboratory Work Phone: Start: 07-04-2024 End: 07-04-2024 ambulatory Manda Cande Facility:[facility] Start: 06-25-2024 End: 06-25-[address] Stiven Sierra MD -Laboratory Work Phone: Start: 06-25-2024 End: 06-25-2024 ambulatory Stiven Nelsonia Facility:[facility] Start: 06-13-2024 End: 06-13-[address] Stiven Sierra MD -[facility] Work Phone: Start: 06-13-2024 End: 06-13-2024 ambulatory [facility] Facility:[facility] Start: 04-30-2024 End: 04-30-[address] Stiven Sierra MD -Outpatient Bone Densitometry Work Phone: Start: 04-30-2024 End: 04-30-2024 [facility] Start: 04-10-2024 End: 04-10-[address] Manda Castellon MD -[facility] Work Phone: Start: 04-10-2024 End: 04-10-2024 [facility] Start: 08-04-2023 End: 08-04-[address] Manda Castellon Work Phone: [facility]-Medical Out Work Phone: Start: 08-01-2023 End: 08-01-[address] Manda Castellon Work Phone: [facility] Work Phone: Start: 08-01-2023 End: 08-01-[address] Manda Castlelon Work Phone: [facility] Work Phone: Start: 06-14-2023 End: 06-14-[address] Manda Castellon Work Phone: [facility] Work Phone: Start: 06-14-2023 End: 06-14-[address] [facility] Start: 06-13-2023 End: 06-13-[address] Manda Castellon Work Phone: [facility] Work Phone: Start: 06-02-2023 End: 06-02-[address] Manda Castellon Work Phone: [facility] Work Phone: Start: 04-10-2023 End: 04-10-[address] Manda Castellon Work Phone: [facility] Work Phone: Start: 12-01-2022 End: 12-01-[address] Manda Castellon Work Phone: [facility] Work Phone: Start: 12-01-2022 End: 12-01-[address] [facility] Start: 11-30-2022 End: 11-30-[address] Manda Castellon Work Phone: [facility] Work Phone: Start: 11-30-2022 End: 11-30-[address] Manda Castellon Work Phone: [facility] Work Phone: Start: 09-26-2022 End: 09-26-[address] Manda Castellon Work Phone: [facility] [place] Work Phone: Start: 09-16-2022 End: 09-16-[address] Manda Castellon Work Phone: [facility] Work Phone: Start: 08-03-2022 ambulatory Jeffery Monique Work Phone: [facility] Start: 07-21-2022 End: 07-21-[address] Manda Castellon Work Phone: [facility] Work Phone: Start: 07-21-2022 End: 07-21-[address] Manda Castellon Work Phone: [facility] Start: 07-19-2022 End: 07-19-[address] Manda Castellon Work Phone: [facility] Work Phone: Start: 07-19-2022 End: 07-19-[address] Manda Castellon Work Phone: [facility]-Laboratory Start: 05-19-2022 End: 05-19-[address] Manda Castellon Work Phone: [facility] Start: 05-18-2022 End: 05-18-[address] Manda Castellon Work Phone: [facility] Start: 03-07-2022 End: 03-07-2022 Emergency department patient visit Dr. Manda Castellon Work Phone: [facility]-Emergency Department Start: 12-22-2021 End: 12-22-[address] Manda Castellon Work Phone: [facility] Internal Medicine Start: 08-25-2021 ambulatory Jeffery Monique Work Phone: [facility] Procedures Date Procedure Procedure Detail Performing Clinician Start: 12-19-2024 Vitamin D, 25-hydrox y measurement Dr. Manda Castellon MD Work Phone: Comment on above: Vitamin D StatusDefi ciency: <20 ng/mL (50nmol/L)Insufficiency: 20-30 ng/mL (50-75 nmol/L)Sufficiency: 30-100 ng/mL (75-250 nmol/L)Toxicity: >100 ng/mL (>250 nmol/L) Start: 08-09-2024 Screening mammography Kayden Castellon MD Work Phone: Start: 06-25-[address] Manda Castellon MD Work Phone: Start: 04-30-2024 Dual energy X-ray absorptiometry Dr. Manda Castellon MD Work Phone: Start: 08-01-2023 Screening mammography Kayden Castellon Work Phone: Start: 11-30-2022 Radiologic examinati on of knee Dr. Manda Castellon Work Phone: Start: 07-21-2022 Screening mammography Kayden Castellon Work Phone: Start: 03-07-2022 Computed tomography of abdomen and pelvis with contrast Dr. Manda Castellon Work Phone: Start: 07-06-2020 Mammography Jeffery david MD Work Phone: Start: 03-20-2018 Adult depression scr eening assessment Jeffery Martin MD Work Phone: Start: 10-09-2013 Colonoscopy Jeffery david MD Work Phone: H/O: tubal ligation History of t ubal ligation Dr. Manda Castellon Work Phone: Plan of Treatment Date Care Activity Detail Author Start: 04-09-2028 Urine microalbumin profile DTAP,TDAP,TD (5 - Td or Tdap) [facility] Start: 12-09-2024 LIPID SCREEN LIPID SCREEN [facility] Start: 10-10-2023 Colonoscopy COLONOSCOPY [facility] Start: 10-10-2023 COLORECTAL CANCER SCREENING COLORECTAL CANCER SCREENING [facility] Start: 12-09-2022 DIABETES SCREEN DIABETES SCREEN [facility] Start: 07-21-2022 Patient referral [facility] Work Phone: Start: 05-08-2022 ADVANCE DIRECTIVE DISCUSSION ADVANCE DIRECTIVE DISCUSSION [facility] Start: 05-08-2022 DEPRESSION ASSESSMENT DEPRESSION ASS ESSMENT [facility] Start: 01-06-2022 Influenza vaccination [facility] Start: 07-06-2021 Mammography MAMMOGRAM [facility] Start: 05-08-2021 ADVANCE DIRECTIVE DISCUSSION ADVANCE DIRECTIVE DISCUSSION [facility] Start: 12-29-2020 COVID-19 VACCINE (3 - Booster for Pfizer series) COVID-19 VACCINE (3 - Booster for Pfizer series) [facility] Start: 09-23-2020 COVID-19 VACCINE (3 - Booster for Pfizer series) COVID-19 VACCINE (3 - Booster for Pfizer series) [facility] Start: 03-20-2019 Adult depression screening assessment DEPRESSION SCREENING [facility] Start: 04-10-2014 FECAL OCCULT BLOOD FECAL OCCULT BLOO D [facility] Start: 01-18-2011 SHINGRIX VACCINE (2 of 3) SHINGRIX VACCINE (2 of 3) [facility] Start: 1995 COLOGUARD (FIT-DNA) COLOGUARD (FIT-D NA) [facility] Start: [address] COLONOGRAPHY [facility] Start: 1995 SIGMOIDOSCOPY SIGMOIDOSCOPY [facility] CBC W Auto Different ial panel - Blood [facility] Comprehensive metabo lic 1999 panel - Serum or Plasma [facility] Lipid 1996 panel - Serum or Plasma [facility] Magnesium measurement [facility] End: 09-02-2023 LOREN SCREENING LOREN SCREENING Radiology Routine Encounter for screening mammogram for breast cancer 1 Occurrences starting 08/03/2022 until 09/02/2023 [facility] Work Phone: Comment on above: 1 Occurrences starti ng 08/03/2022 until 09/02/2023 Patient Education ED Diverticulitis [facility] Work Phone: Patient referral [facility] Work Phone: Radionuclide imaging of perfusion of myocardium under exercise stress [facility] End: 09-24-2022 Screening mammography bi 2-view breast inc cad LOREN SCREENING Radiology Routine Encounter for screening mammogram for breast cancer 1 Occurrences starting 08/25/2021 until 09/24/2022 [facility] Work Phone: Comment on above: 1 Occurrences starti ng 08/25/2021 until 09/24/2022 Thyroid stimulating hormone measurement [facility] Vitamin D, 25-hydrox y measurement [facility] Immunizations Immunization Date Immunization Notes Care Provider Fa cility 02-05-2022 influenza, injectabl e, quadrivalent, preservative free Dr. Manda Castellon Work Phone: [facility] 02-05-2022 influenza, seasonal, injectable Dr. Manda Castellon Work Phone: [facility] 07-29-2020 COVID-19 vaccine, ag e 12+ yr (PFIZER-BIONTECH - PURPLE TOP) Jeffeyr Martin MD Work Phone: [facility] Work Phone: 07-08-2020 COVID-19 vaccine, ag e 12+ yr (PFIZER-BIONTECH - PURPLE TOP) Jeffery Martin MD Work Phone: [facility] Work Phone: 02-08-2020 influenza, high-dose , quadrivalent vaccine (FLUZONE HIGH DOSE QUADRIVALENT) Jeffery Martin MD Work Phone: [facility] 02-06-2019 influenza, high dose seasonal, preservative-free Jeffery Martin MD Work Phone: [facility] 04-09-2018 tetanus toxoid, redu livia diphtheria toxoid, and acellular pertussis vaccine, adsorbed Jeffery Martin MD Work Phone: [facility] 06-30-2016 pneumococcal polysaccharide vaccine, 23 valent Jeffery Martin MD Work Phone: [facility] Work Phone: 01-20-2016 influenza, high dose seasonal, preservative-free Jeffery Martin MD Work Phone: [facility] 05-22-2015 pneumococcal conjuga te vaccine, 13 valent Jeffery Martin MD Work Phone: [facility] Work Phone: 02-05-2015 influenza, injectabl e, quadrivalent, contains preservative Jeffery Martin MD Work Phone: [facility] Work Phone: 02-12-2014 influenza, seasonal, injectable Jeffery Martin MD Work Phone: [facility] 03-02-2013 influenza virus vacc ine, unspecified formulation Jeffery Martin MD Work Phone: [facility] Work Phone: 07-02-2012 tetanus toxoid, redu livia diphtheria toxoid, and acellular pertussis vaccine, adsorbed Jeffery Martin MD Work Phone: [facility] 02-25-2012 influenza virus vacc ine, unspecified formulation Jeffery Martin MD Work Phone: [facility] Work Phone: 03-25-2011 influenza virus vacc ine, unspecified formulation Jeffery Martin MD Work Phone: [facility] 11-23-2010 zoster vaccine, live Jeffery Martin MD Work Phone: [facility] 03-23-2010 influenza virus vacc ine, unspecified formulation Jeffery Martin MD Work Phone: [facility] Work Phone: 01-27-2009 influenza virus vacc ine, unspecified formulation Jeffery Martin MD Work Phone: [facility] Work Phone: 03-06-2008 influenza virus vacc ine, whole virus Jeffery Martin MD Work Phone: [facility] 01-04-2007 tetanus toxoid, redu livia diphtheria toxoid, and acellular pertussis vaccine, adsorbed Jeffery Martin MD Work Phone: [facility] Work Phone: 03-10-2006 influenza virus vacc ine, unspecified formulation Jeffery Martin MD Work Phone: [facility] Work Phone: 03-10-2006 pneumococcal polysaccharide vaccine, 23 valent Jeffery Martin MD Work Phone: [facility] Work Phone: 05-31-1996 diphtheria and tetan us toxoids, adsorbed for pediatric use Jeffery Martin MD Work Phone: [facility] Work Phone: Payers Date Payer Category Payer Self-pay [id number] 2024 Medicare [id number] 2015 Private Health Insurance HUMANA HUMANA MEDICARE SUPPLEMENT [id number] 2015-Present [phone] [address] [address] [place] [address] Indemnity [id number] 2015 Private Health Insurance [id number] 2015 Private Health Insurance HUMANA HUMANA MEDICARE SUPPLEMENT [id number] 2015-Present [phone] [address] [address] [place] [address] Indemnity [id number] 2015 Medicare MEDICARE MEDICAR E A AND B [id number] 2015-Present [phone] [address] [address] [place] [address] Medicare [id number] 2015 Medicare [id number] 2015 Medicare MEDICARE MEDICAR E A AND B [id number] 2015-Present [phone] [place] [address] Medicare [id number] Unknown [id number] Unknown [id number] Unknown [id number] Unknown [id number] Unknown [id number] Unknown [id number] Unknown [id number] Unknown [id number] Unknown [id number] Unknown [id number] Social History Date Type Detail Facility Start: 12-11-2023 End: 08-16-2024 Tobacco smoking status [facility] Never smoked tobacco [facility] Start: 12-06-2019 Alcohol intake Current drinke r of alcohol (finding) [facility] Start: 12-07-2019 History SDOH Alcohol Frequency 2 [facility] Start: 12-07-2019 History SDOH Alcohol Std Drinks 1 [facility] Start: 12-07-2019 History SDOH Social Connections Phone 4 [facility] Start: 12-07-2019 History SDOH Social Connections Meetings 3 [facility] Start: 12-07-2019 History SDOH Physica l Activity DPW 0 [facility] Start: 12-07-2019 History SDOH Financial 5 [facility] Start: 12-06-2019 Education 12 [facility] Start: 1950 Sex Assigned At Female [facility] Start: 03-07-2022 End: 08-01-2023 Tobacco smoking status PAIS Unknown if ever smoked [facility] Start: 01-13-2021 None [facility] Start: 01-13-2021 Homeless [facility] Start: 07-18-2024 End: 08-12-2024 Sex Female (finding) [facility] Mental Status Date Assessment Result Facility 08-04-2023 Cognitive function Awake;Alert;A ppropriate;Fol lows Commands [facility] Work Phone: Clinical Notes 06-09-2016 to 12-19-2024 Note Date & Type Note Facility 12-19-2024 Evaluation note Diagnosis Onset Date Resolution Arm pain, left acute December 7:51am Low back pain acute December 7:51am Vitamin D deficiency acute 2024 7:51am Hyperlipidemia chronic December 7:51am Obesity chronic December 19, 2 025 7:51am COREY (obstructive sleep apnea) chronic December 19 7:51am [facility] Work Phone: 1(649) 619-401402-06-2025 Evaluation note* Diagnosis Onset Date Resolution Status Admit Date Obesity chronic June 13, 2024 8:53am Osteoporosis chronic June 8:53am [facility] Work Phone: 1(434) 615-259912-04-2024 Evaluation note* Diagnosis Onset Date Resolution Status Admit Date Degenerative disc disease acute April 10, 2024 8:48am Low back pain acute April 8:48am Obesity chronic April 10, 2024 8:48am Osteoporosis chronic April 8:48am Obesity chronic June 13, 2024 8:53am Osteoporosis chronic June 8:53am [facility] Work Phone: 1(356) 959-955603-26-2024 NotePap Smear Specimen [facility]acyTri[facility] 2023 10:54amComment.Satisfactory for evaluation. Endocervical and/or squamous metaplasticcells (endocervical component)are present.[facility]ACED A#[id number] Medical CenterComment on above:Satisfactory for evaluation. Endocervical and/or squamous metaplasticcells (endocervical component)are present.08-03-2022 NotePatient Outreach (INTMMN) TONNY HILLIARD ([id number]) 1950 F Date Time Provider Department 08/03/22 [...] for screening mammogram for breast cancer [Z12.31] Order(s):[facility]EN[facility] [[id number]] Order #: [id number] FUTURE Prescriptions as of 08/08/2022 - alendronate [...] by mouth as needed. - OTC PRODUCT [place] 3: Take one tablet daily, 1000mg. Problem [...] 12/27/2016 Encounter Status:Closed by CLAYTON KAUFMAN on 08/08/22[facility] 08-25-2021 NotePatient Outreach (INTMMN) TONNY HILLIARD ([id number]) 1950 F Date Time Provider Department 08/25/21 JEFFERY MARTIN INTSHEA During your visit today, we recorded the [...] for screening mammogram for breast cancer [Z12.31] Order(s):[facility] [[id number]] Order #: [id number] FUTURE Prescriptions as of 08/30/2021 - alendronate [...] by mouth as needed. - OTC PRODUCT [place] 3: Take one tablet daily, 1000mg. Problem [...] apnea) [G47.33] 06/09/2016 12/27/2016 Encounter Status:Closed by MANDEEP, PRODUSER on 08/30/21[facility] 06-09-2016 History of Past illness Narrative* Problem Noted Date Resolved Date COREY (obstructive sleep apnea) 06/09/2016 Last Assessment & Plan: Uvula was removed and since then she is dong better, does not use a sleep machine Cervicalgia 12/15/2015 12/27/2016 History of diverticulitis 09/03/20132016 Hyperglycemia 11/23/2010 05/22/2015 Xerosis cutis 06/27/2010 05/22/2015 Atypical lobular hyperplasia of breast 0 05/22/2015 Symptomatic menopausal or female climacteric sta jag 09/07/2009 05/22/2015 Postmenopausal atrophic vaginitis 09/07/2009 05/22/2015 Abdominal pain, left upper quadrant 09/07/2009 09/07/2009 Abdominal pain, right upper quadrant 09/07/2009 09/07/2009 Abdominal pain, right lower quadrant 09/07/2009 11/28/2011 XEROSIS///SEBACEOUS GLAND DIS NEC 03/17/2008 12/15/2011 Acute gastritis without mention of hemorrhage 05/22/2015 Esophagitis, unspecified 07/05/2007 016 Palpitations 04/04/2005 03/17/2016 Spontaneous ecchymoses 04/04/2005 6 documented as of this encounter (statuses as of 08/30/2021) [facility]02-02-2017 History of Past illness Narrative* Problem Noted Date Resolved Date COREY (obstructive sleep apnea) 06/09/2016 Last Assessment & Plan: Uvula was removed and since then she is dong better, does not use a sleep machine Cervicalgia 12/15/2015 12/27/2016 History of diverticulitis 09/03/20132016 Hyperglycemia 11/23/2010 05/22/2015 Xerosis cutis 06/27/2010 05/22/2015 Atypical lobular hyperplasia of breast 0 05/22/2015 Symptomatic menopausal or female climacteric sta jag 09/07/2009 05/22/2015 Postmenopausal atrophic vaginitis 09/07/2009 05/22/2015 Abdominal pain, left upper quadrant 09/07/2009 09/07/2009 Abdominal pain, right upper quadrant 09/07/2009 09/07/2009 Abdominal pain, right lower quadrant 09/07/2009 11/28/2011 XEROSIS///SEBACEOUS GLAND DIS NEC 03/17/2008 12/15/2011 Acute gastritis without mention of hemorrhage 05/22/2015 Esophagitis, unspecified 07/05/2007 016 Palpitations 04/04/2005 03/17/2016 Spontaneous ecchymoses 04/04/2005 6 documented as of this encounter (statuses as of 08/08/2022) [facility] Diagnosis Encounter for screening mammogram for breast cancer documented in this encounter [facility] note* Diagnosis Onset Date Resolution Status GERD (gastroesophageal reflux disease) chronic Left knee pain chronic Osteoporosis chronic Palpitations chronic [facility] Work Phone: Evaluation note* Diagnosis Onset Date Resolution Status Fatigue acute Nonsustained ventricular tachycardia acute Hyperlipidemia chronic PVC's (premature ventricular contractions) chronic Osteoporosis chronic Encounter for routine gynecological examination noneactive [facility] Work Phone: Evaluation note* Diagnosis Encounter for screening mammogram for breast cancer documented in this encounter [facility] note* Diagnosis Onset Date Resolution Status Osteoarthritis of left knee acute Hand contusion acute Osteoarthritis of left knee acute Vitamin D deficiency acute GERD (gastroesophageal reflux disease) chronic Hyperlipidemia chronic Obesity chronic Osteoporosis chronic Psoriasis chronic Fatigue chronic Hyperlipidemia chronic PVC's (premature ventricular contractions) chronic Nonsustained ventricular tachycardia resolved Osteoarthritis of left knee acute Osteoarthritis of right knee acute [facility] Work Phone: Evaluation note* Diagnosis Onset Date Resolution Status Osteoarthritis of right knee acute Obesity chronic Osteoporosis chronic Psoriasis chronic Osteoporosis chronic 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 Work Phone: Evaluation noteNo assessment information available [facility] Work Phone: Hospital Discharge instructionsAmbulatory Orders* General Surgery Location: None Selected [facility] Work Phone: Reason for referral (narrative)* Diagnostic Procedure Only (Routine) - Pending Review Specialty Diagnoses / Procedures Referred By Estelita dye Referred To Contact [facility] Diagnoses Encounter for screening mammogram for breast cancer Procedures LOREN SCREENING SCREENING MAMMOGRAPHY BI 2-VIEW BREAST INC Jeffery Lo MD [address] [place] [address] [facility] [address] [place] [address] Referral ID Status Reason Start Date Expiration Date Visits Requested Visits Authorized [id number] Pending Review Auto-Generat ed Referral 08/25/2021 09/24/2022 1 1 [facility] for referral (narrative)* Diagnostic Procedure Only (Routine) - Pending Review Specialty Diagnoses / Procedures Referred By Estelita dye Referred To Contact [facility] Diagnoses Encounter for screening mammogram for breast cancer Procedures LOREN SCREENING SCREENING MAMMOGRAPHY BI 2-VIEW BREAST INC Jeffery Lo MD [address] [place] [address] [facility] [address] [place] [address] Referral ID Status Reason Start Date Expiration Date Visits Requested Visits Authorized [id number] Pending Review Auto-Generat ed Referral 08/03/2022 09/02/2023 1 [facility]No reason for referral information availableWUC [facility] Work Phone: Summary Purpose Family History No Family History Records Found Relationship Condition Age at Onset Recorded Date/T carlos brother Cerebrovascular accident (CVA) Unknown Malignant neoplasm Unknown mother Disorder of thyroid Unknown Adult idiopathic gen eralized osteoporosis Unknown Malignant neoplasm of skin Unknown Alzheimer's disease Unknown Myocardial infarction 62 father Malignant neoplasm Unknown Hypertension Unknown son Myocardial infarction 45 Advance Directives No Advanced Directives Records Found Advance Directive Response Recorded Date/ Time Name of Medical Power of Shoe Packer DESIREE PERRY March 07, 2022 2:59pm Living Will Yes March 07 2:59pm Power of Shoe Packer Yes March 07, 2022 2:59pm Advance Directive Response Recorded Date/ Time Living Will Yes March 09 10:55am Power of Shoe Packer Yes March 09, 2022 10:55am Advance Directive Response Recorded Date/ Time Living Will Yes March 09 9:55am Power of Shoe Packer Yes March 09, 2022 9:55am Advance Directive Response Recorded Date/ Time Living Will Yes March 09 10:55am Power of Shoe Packer Yes March 09, 2022 10:55am Living Will Yes September 12, 2023 10 :53am Power of Shoe Packer Yes September 12, 2023 10:53am Advance Directive Response Recorded Date/ Time Living Will Yes March 09 10:55am Do you have a Healthcare Power of Shoe Packer? Yes March 09, 2022 10:55am Living Will Yes September 12, 2023 10 :53am Do you have a Healthcare Power of Shoe Packer? Yes September 12, 2023 10:53am Chief Complaint and Reason for Visit Chief Complaint 6 M FU ABD PAIN Reason for Visit GERD (gastroesophage al reflux disease) Left knee pain Osteoporosis Palpitations Chief Complaint overdue for 6 m fu 1 Y FU E ORDER SCREENING Annual (COCOA ROOM OPERATOR) Reason for Visit Fatigue Nonsustained ventricular tachycardia Hyperlipidemia PVC's (premature ventricular contractions) Osteoporosis Encounter for routine gynecological examination Chief Complaint LEFT KNEE Annual 6 M FU left knee RM 1 E ORDER Reason for Visit Osteoarthritis of le ft knee Hand contusion Osteoarthritis of left knee Vitamin D deficiency GERD (gastroesophageal reflux disease) Hyperlipidemia Obesity Osteoporosis Psoriasis Fatigue Hyperlipidemia PVC's (premature ventricular contractions) Nonsustained ventricular tachycardia Osteoarthritis of left knee Osteoarthritis of right knee Chief Complaint 7 M FU COUGH, SORE THROAT, FEVER 1 Y FU E ORDERS 3 ORDERING DOCTORS Reason for Visit Osteoarthritis of ri ght knee Obesity Osteoporosis Psoriasis Osteoporosis Chief Complaint COUGH, SORE THROAT, FEVER 1 Y FU E ORDERS 3 ORDERING DOCTORS SCREENING Annual (COCOA ROOM OPERATOR) RECLAST Reason for Visit Osteoporosis 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 Immunosuppressed status Encounter for routine gynecological examination Chief Complaint Admit Date 6 M FU April 10, 2024 8 :48am SCREENING OSTEO April 30, 2024 8:13am 1 Y FU June 13, 2024 8 :53am Reason for Visit Admit Date Degenerative disc disease April 10, 2024 8:48am Low back pain April 10, 2024 8 :48am Obesity April 10, 2024 8 :48am Osteoporosis April 10, 2024 8 :48am Obesity June 13, 2024 8 :53am Osteoporosis June 13, 2024 8 :53am Chief Complaint Admit Date SCREENING OSTEO April 30, 2024 8:13am 1 Y FU June 13, 2024 8 :53am SCREENING OSTEO August 09, 2024 8:22 am Reason for Visit Admit Date Obesity June 13, 2024 8 :53am Osteoporosis June 13, 2024 8 :53am Chief Complaint Admit Date Annual/Physical December 19, 2024 7: 51am Chief Complaint Admit Date Annual/Physical December 19, 2024 7: 51am INT LABS December 19, 2024 9: 59am Reason for Visit Admit Date Arm pain, left December 19, 2024 7: 51am Low back pain December 19, 2024 7: 51am Vitamin D deficiency December 19, 2024 7 :51am Hyperlipidemia December 19, 2024 7: 51am Obesity December 19, 2024 7: 51am COREY (obstructive sleep apnea) December 7:51am Additional Source Comments INFORMATION SOURCE (unrecogn ized section and content) DATE CREATED AUTHOR 08/15/2020 [facility] DATE CREATED AUTHOR AUTHOR'S ORGANIZ ATION 08/10/2022 [facility] DATE CREATED AUTHOR AUTHOR'S ORGANIZ ATION [facility] Source Comments (unrecognize d section and content) In the event this informatio n is protected by the Federal Confidentiality of Alcohol and Drug Abuse Patient Records regulations: The Federal rules restrict any use of the information to criminally investigate or prosecute any alcohol or drug abuse patient.[facility] the event this information is protected by the Federal Confidentiality of Alcohol and Drug Abuse Patient Records regulations: The Federal rules restrict any use of the information to criminally investigate or prosecute any alcohol or drug abuse patient.[facility] Care Teams (unrecognized sec tion and content) 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 Jeffery Martin MD Family Provider Active Dr. Manda Castellon MD Primary Care Provider Active Team Status: Inactive Member Role Status Dates Dr. Manda Castellon MD Primary Care Provider, Referri ng Provider Active Dr. Stiven Sierra MD Attending Provider Active Team Status: Inactive Member Role Status Dates Dr. Manda Castellon MD Primary Care Provider, Referri ng Provider Active Dr. Jessica Dale MD Attending Provider Active Team Status: Inactive Member Role Status Dates Dr. Manda Castellon MD Primary Care Provider, Referri ng Provider Active MIN Land NP Attending Provider Active Team Status: Inactive Member Role Status Dates Dr. Manda Castellon MD Primary Care Provider Active Dr. Jessica Dale MD Attending Provider Active Team Status: Active Member Role Status Dates Dr. Manda Castellon MD Primary Care Provider Active Dr. Stiven Sierra MD Attending Provider, Referring Provi doris Active Team Status: Inactive Member Role Status Dates Dr. Manda Castellon MD Primary Care Provider Active Dr. 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 Manda Castellon MD Primary Care Provider, Referri ng Provider Active Dr. Douglas Way DO Attending Provider Active Team Status: Inactive Member Role Status Dates Dr. Manda Castellon MD Primary Care Provider, Attendi ng Provider Active Team Status: Inactive Member Role Status Dates Dr. Manda Castellon MD Primary Care Provider Active Dr. Jasbir Rosenberg MD Attending Provider Active Team Status: Inactive Member Role Status Dates Dr. Manda Castellon MD Primary Care Provider Active Dereje Salvador VASCULAR ULTRASOUND TECHNOLOGIST, VASCULAR ULTRASOUND TECHNOLOGIST-C Attending Provider, Referring Pro vider Active Team Status: Inactive Member Role Status Dates Dr. Manda Castellon MD Primary Care Provider, Referri ng Provider Active Thom Cote PA, PA Attending Provider Active Team Status: Inactive Member Role Status Dates Dr. Manda Castellon MD Primary Care Provider Active Dr. Stiven Sierra MD Attending Provider, Referring Provi doris Active Dereje Salvador VASCULAR ULTRASOUND TECHNOLOGIST, VASCULAR ULTRASOUND TECHNOLOGIST-C Other Provider Active Team Status: Active Member Role Status Dates Dr. Jeffery Martin MD Family Provider Active DEFINED NOT Primary Care Provider Active Team Status: Inactive Member Role Status Dates Dr. Manda Castellon MD Referring Provider Active Dr. Jessica Dale MD Attending Provider Active Team Status: Inactive Member Role Status Dates Dr. Manda Castellon MD Primary Care Provider Active Dr. Jessica Dale MD Attending Provider, Referr ing Provider Active Team Status: Inactive Member Role Status Dates Dr. Stiven Sierra MD Attending Provider, Referring Provi doris Active DEFINED NOT Primary Care Provider Active Team Status: Inactive Member Role Status Dates Dr. Manda Castellon MD Primary Care Provider Active Start: April 10, 2024 End: April 10, 2024 Dr. Manda Castellon MD Attending Provider Active Start: April 10, 2024 End: April 10, 2024 Team Status: Inactive Member Role Status Dates Dr. Manda Castellon MD Primary Care Provider Active Start: April 30, 2024 End: April 30, 2024 Dr. Stiven Sierra MD Attending Provider Active Sta rt: April 30, 2024 End: April 30, 2024 Dr. Stiven Sierra MD Referring Provider Active Sta rt: April 30, 2024 End: April 30, 2024 Team Status: Inactive Member Role Status Dates Dr. Manda Castellon MD Primary Care Provider Active Start: June 13, 2024 End: June 13, 2024 Dr. Manda Castellon MD Referring Provider Active Start: June 13, 2024 End: June 13, 2024 Dr. Stiven Sierra MD Attending Provider Active Sta rt: June 13, 2024 End: June 13, 2024 Team Status: Inactive Member Role Status Dates Dr. Manda Castellon MD Primary Care Provider Active Start: June 25, 2024 End: June 25, 2024 Dr. Stiven Sierra MD Attending Provider Active Sta rt: June 25, 2024 End: June 25, 2024 Dr. Stiven Sierra MD Referring Provider Active Sta rt: June 25, 2024 End: June 25, 2024 Team Status: Inactive Member Role Status Dates Dr. Manda Castellon MD Primary Care Provider Active Start: July 04, 2024 End: July 04, 2024 Dereje Salvador VASCULAR ULTRASOUND TECHNOLOGIST, VASCULAR ULTRASOUND TECHNOLOGIST-C Attending Provider Active S tart: July 04, 2024 End: July 04, 2024 Dereje Salvador VASCULAR ULTRASOUND TECHNOLOGIST, VASCULAR ULTRASOUND TECHNOLOGIST-C Referring Provider Active S tart: July 04, 2024 End: July 04, 2024 Team Status: Active Member Role Status Dates Dr. Manda Castellon MD Primary Care Provider Active Team Status: Inactive Member Role Status Dates Dr. Manda Castellon MD Primary Care Provider Active Start: August 09, 2024 End: August 09, 2024 Dr. Jessica Dale MD Attending Provider Active Start: August 09, 2024 End: August 09, 2024 Dr. Jessica Dale MD Referring Provider Active Start: August 09, 2024 End: August 09, 2024 Team Status: Active Member Role/Relationship Status Dates Dr. Manda Castellon MD Primary Care Provider Active Team Status: Inactive Member Role/Relationship Status Dates Dr. Manda Castellon MD Primary Care Provider Active Start: December 19, 2024 End: December 19, 2024 Dr. Manda Castellon MD Attending Provider Active Start: December 19, 2024 End: December 19, 2024 Team Status: Inactive Member Role/Relationship Status Dates Dr. Manda Castellon MD Primary Care Provider Active Start: December 19, 2024 End: December 19, 2024 Dr. Manda Castellon MD Attending Provider Active Start: December 19, 2024 End: December 19, 2024 Dr. Manda Castellon MD Referring Provider Active Start: December 19, 2024 End: December 19, 2024 Goals (unrecognized section and content) Goals may be documented in a n alternate sectionGoals may be documented in an alternate sectionGoals may be documented in an alternate sectionGoals may be documented in an alternate sectionGoals may be documented in an alternate sectionGoals may be documented in an alternate sectionGoals may be documented in an alternate sectionGoals may be documented in an alternate sectionGoals may be documented in an alternate sectionGoals may be documented in an alternate section FOR RECORDS PERTAINING TO PATIENTS WHO ARE [...] BE BASED ON THE PRIMARY CLINICAL RECORDS. [employer] provides no warranty or guarantee of the accuracy or completeness of information in this document.
--- NOTE | 2025-01-14 12:48 | STRESSREP_ITS ---
Stress Test Report Date: 01/14/2025 Procedure: Exercise tolerance test/imaging study Indications: Chest pain Consent: Per the patient Procedure: The patient exercised on a Denis protocol for 3 minutes and 30 seconds achieving a peak heart rate of 148 bpm (101% predicted maximal heart rate) with a peak blood pressure 140/80 mmHg and a peak MET capacity of 5.8 METs. The baseline ECG demonstrated sinus rhythm. The peak exercise ECG showed sinus tachycardia with no ischemic changes. Rare PVCs noted during exercise. The functional capacity was considered average for age. There was no complaint of chest discomfort during exercise or recovery. The examination was discontinued secondary to target heart rate being achieved and dyspnea. The patient was injected with 13.6 mCi of technetium 99m Cardiolite and subsequently rest SPECT Cardiolite nuclear imaging was obtained in the horizontal long, vertical long, and short axis views. Post-exercise, the patient was injected with 44.3 mCi of technetium 99m Cardiolite and subsequently stress SPECT Cardiolite nuclear imaging was obtained in the horizontal long, vertical long, and short axis views. A gated Cardiolite study at peak stress was obtained. Rest and stress SPECT Cardiolite nuclear imaging status post realignment, normalization, and attenuation correction, demonstrates the appearance of relative uniform tracer uptake and myocardial perfusion appearing within normal limits. There is end systolic thickening and brightening. The gated Cardiolite study demonstrates myocardial thickening and inward wall motion. The reported LVEF is 82%. Impression: 1. Technically adequate (percent predicted maximal heart rate greater than 85%) exercise tolerance test 2. Peak exercise ECG with no ischemic changes. No angina reported. 3. No significant cardiac dysrhythmias noted. 4. Rest and stress SPECT Cardiolite nuclear imaging demonstrate relative uniform tracer uptake and myocardial perfusion appearing within normal limits. 5. The gated Cardiolite study reports an LVEF of 82%. This note was generated with [employer] software. It may contain incorrect words, spelling, and punctuation that were not noted in checking the note before signing.
== END | disposition home or self-care (01) ==
LOC: CVS 06:33
PROVIDERS: PCP Internal Medicine; Referring Provider Internal Medicine; Visit Provider Internal Medicine
DX: R07.89 Other chest pain (principal); M79.602 Pain in left arm
CPT/HCPCS: 78452; 93017; A9500